=== PATIENT | female | born 1940 | race Caucasian/White ===

== ENCOUNTER → 2016-11-29 | Outpatient (CLI) | payer OTHER ==
[~2016-11-29] MED LIST: CALCTAB5 PO; MULT-506 PO; VITAMIN E PO
--- NOTE | 2016-11-29 08:48 | DIAGNOSTIC IMAGING REPORT ---
LUMBAR SPINE MRI HISTORY: Back pain. Neuropathy. ACUTE L LOWER BACK PAIN W/SCIATICA TECHNIQUE: Multiplanar multisequence MRI of the lumbar spine was performed without the use of contrast. COMPARISON: 02/14/2013 FINDINGS: For the purpose of the report the L5-S1 disc space will be located on axial image 27 of 30. Signal characteristics the vertebral bodies remain unremarkable throughout. There is no bone marrow replacing process. Findings of posterior laminectomy at the L4 level are again noted. These changes appears similar. Mild disc desiccation is noted throughout also unchanged. L1-L2: No significant central canal or neural foraminal narrowing. L2-L3: No significant central canal or neural foraminal narrowing. L3-L4: No significant central canal or neural foraminal narrowing. L4-L5: Very slight transverse narrowing of the spinal canal on a postoperative basis. This is unchanged. No evidence for recurrent disc herniation or significant spinal stenotic change. L5-S1: No significant central canal or neural foraminal narrowing. IMPRESSION: 1. No change in the prior study of 02/14/2013. 2. Stable changes of the posterior laminectomy at L4. 3. Slight transverse narrowing of spinal canal at L4 unaltered from the prior exam. 4. No significant compromise of the spinal canal or neural foramina on this exam 5. The clumping of nerve roots at L4 present described appear less prominent on the current study Electronically signed by: Terrell Cleaning M.D. 11/29/2016 8:47 AM Dictated Date/Time: 11/29/2016 8:42 AM
== END | disposition home or self-care (01) ==
LOC: C.OPENMRI 07:50
PROVIDERS: ATTEND Family Medicine
DX: M54.42 Lumbago with sciatica, left side (principal)

== ENCOUNTER 2018-10-30 15:12 | Inpatient (IN) ==
[2018-10-30] MEDS ORDERED: cefOXitin 1,000 MG/50 ML BAG IV STA (15:30)
[2018-10-30] MEDS ORDERED: SODIUM CHLORIDE 0.9% 500 ML IV SCH (15:30)
[2018-10-30] MEDS ORDERED: fentaNYL citrate 100 MCG/2 ML VIAL IV PRN (15:30)
[2018-10-30] MEDS ORDERED: ONDANSETRON INJ 2 MG/ML 2 ML VIAL IV STA (15:30)
[2018-10-30] MEDS ORDERED: SODIUM CHLORIDE 0.9% 1000ML 500 ML IV ONE (15:46)
[2018-10-30 16:06] LABS: Basophils # (auto) 0.01 K/uL (0-0.2); Basophils % (auto) 0.1 %; Eosinophils % (auto) 1.4 %; Hemoglobin 10.6 g/dL (12.0-16.0); Immature Granulocytes # (auto) 0.03 K/uL (0.00-0.02); Immature Granulocytes % (auto) 0.4 %; Lymphocytes # (auto) 1.56 K/uL (1.2-3.4); Lymphocytes % (auto) 21.1 %; Mean Corpuscular Hgb Conc 33.1 g/dL (32-36); Mean Corpuscular Volume 94.7 fL (80-100); Mean Platelet Volume 8.7 fL (7.4-10.4); Monocytes % (auto) 17.6 %; Neutrophils # (auto) 4.38 K/uL (1.4-6.5); Neutrophils % (auto) 59.4 %; Platelet Count 158 K/uL (130-400); RDW Coefficient of Variation 14.9 % (11.5-14.5); RDW Standard Deviation 50.7 fL (36.4-46.3); Red Blood Count 3.38 M/uL (4.2-5.4); White Blood Count 7.38 K/uL (4.8-10.8)
--- NOTE | 2018-10-30 16:11 | Emergency Department Note ---
Entered by Es Luna acting as a scribe for Ric Olivera DO History of Present Illness General Chief complaint: Abdominal Pain Stated complaint: INFLAMED GALL BLADDER - SENT FROM CT Source: patient History of Present Illness Onset (ago): day(s) 3 Location: abdomen Severity: similar to prior episodes Pain Consistency: + other (episode) Maximum Pain Intensity: 8 Exacerbated By: + other (deep breathing) Associated symptoms: + fever/chills (low grade fever), + loss of appetite and + nausea/vomiting (Positive nausea. Negative vomiting. ) The patient is a 78 year old female who presents to the Emergency Room with complaints of an episode of abdominal pain starting 3 days ago. The patient states that she has had issues with her gallbladder for some time. She states that in April, Dr. 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 She states that he opted not to do the surgery. She reports that since then she has received chemo, had a hysterectomy, and had the cancer debulked. She states that last week she saw Dr. Barry again and he was upset that they didnt remove her gallbladder when they did the hysterectomy because now she has a lateral scar that prevents him from removing it laparoscopically. The patient states that 3 days ago she started having another episode of her gallbladder problem. She states that the pain is worse with deep breathing. She notes that her PCP scheduled a CT this morning for her and she was told to come here due to the results. The patient complains of loss of appetite, low grade fever, and nausea. The patient denies vomiting. Home Medications Home Medications Medication Instructions Recorded Confirmed Type multivitamin [Multiple Vitamins] 1 tab PO QPM #0 tab 04/14/16 10/30/18 History vitamin E 200 unit PO QAM #0 04/14/16 10/30/18 History Calcium 600 + D(3) 1 tab PO QAM #0 01/08/18 10/30/18 History acetaminophen [Tylenol Extra 1,000 mg PO Q6H PRN 04/17/18 10/30/18 History Strength] glimepiride 2 mg PO UD 05/18/18 10/30/18 History valacyclovir [Valtrex] 500 mg PO QPM 05/18/18 10/30/18 History gabapentin 200 mg PO BID 10/01/18 10/30/18 History ondansetron 4 mg PO Q6H PRN #14 tab 10/01/18 10/30/18 Rx omeprazole 20 mg PO DAILY 10/30/18 10/30/18 History Allergies Allergy/AdvReac Type Severity Reaction Status Date / Time amoxicillin AdvReac Severe SEVERE Verified 10/30/18 17:20 STOMACH UPSET clavulanic acid AdvReac Severe SEVERE Verified 10/30/18 17:20 STOMACH UPSET naproxen AdvReac Severe Abdominal Verified 10/30/18 17:20 Pain chlorhexidine AdvReac Intermediate rash, Verified 10/30/18 17:20 itchy skin, inflammation at site Past Med/Surg History Medical History Hx of Lyme disease (Chronic) DX DECEMBER 2017 Osteoarthritis (Chronic) GERD (gastroesophageal reflux disease) (Chronic) Ovarian cancer (Chronic) CURRENTLY Peritoneal carcinomatosis (Chronic) CURRENTLY Cholelithiases (Chronic) Surgical History History of laparoscopy (Chronic) FOR GALLBLADDER SURGERY (04/17/18) GALLBADDER SURGERY CANCELLED -- PERITONEAL TUMORS BIOSPIED AT THAT TIME. MAC 3. 7.0 ETT. Grade 2 view. No issues. History of arthroscopy (Chronic) L KNEE 04/2016 History of carpal tunnel surgery (Chronic) L History of back surgery (Chronic) CYST INSIDE SPINE - BENIGN History of colonoscopy (Chronic) History of tonsillectomy (Chronic) Hx of wisdom tooth extraction (Chronic) History of surgical procedure on eye proper using laser (Chronic) PT REPORTS HAS HX OF LASER EYE SURGERY, NO ANETHESIA FOR Previous back surgery S/P appendectomy Family History Father Family hx of colon cancer Mother Family hx of colon cancer Social History Preferred Language: Moroccan Communication Ability: Effective Emergency Man Required: No Beliefs That Will Affect Care: [employer] marital status: Current Living Situation: Spouse current occupational status: retired Feels Safe at Home: Yes Safety Concerns: Feels Safe At This Time Smoking Status: Never smoker Hx Alcohol Use: Yes Hx Substance Use: No Review of Systems See HPI for pertinent positives & negatives. and A total of 10 systems reviewed and were otherwise negative Physical Exam Vital Signs Vital Signs - 24 hr 10/30/18 15:17 10/30/18 17:53 10/30/18 18:14 Temperature 36.3 C L 36.5 C Temperature Source Oral Oral Sepsis Recent Fever Within 48 Hours No Sepsis New/Unexplained Change in Mental Status No Sepsis Action Taken by Nursing No Action Required Pulse Rate 89 Pulse Rate [Finger] 72 Pulse Rhythm Regular Pulse Rhythm [Finger] Regular Pulse Strength Normal Pulse Strength [Finger] Normal Respiratory Rate 20 18 Respiratory Effort / Characteristics Non-Labored Spontaneous Non-Labored Spontaneous Respiratory Depth Normal Normal Respiratory Pattern Regular Regular Blood Pressure 100/58 L Blood Pressure [Right Arm] 125/81 Blood Pressure Mean 72 Blood Pressure Mean [Right Arm] 95 Blood Pressure Position Sitting Blood Pressure Position [Right Arm] Sitting Pulse Oximetry 97 98 Oxygen Delivery Method Room Air Room Air Room Air 10/30/18 22:57 10/31/18 07:31 Temperature 37.2 C 36.9 C Temperature Source Oral Oral Sepsis Recent Fever Within 48 Hours Sepsis New/Unexplained Change in Mental Status Sepsis Action Taken by Nursing Pulse Rate Pulse Rate [Finger] 82 63 Pulse Rhythm Pulse Rhythm [Finger] Regular Pulse Strength Pulse Strength [Finger] Normal Respiratory Rate 16 16 Respiratory Effort / Characteristics Respiratory Depth Normal Normal Respiratory Pattern Blood Pressure Blood Pressure [Right Arm] 114/69 101/60 Blood Pressure Mean Blood Pressure Mean [Right Arm] 84 73 Blood Pressure Position Blood Pressure Position [Right Arm] Lying Lying Pulse Oximetry 94 95 Oxygen Delivery Method Room Air Room Air GENERAL: Patient is awake, alert, and in no acute distress. Patient is resting comfortably and showing no signs of anxiety. EYES: The conjunctivae are clear. The pupils are round and reactive. EARS, NOSE, MOUTH AND THROAT: The nose is without any evidence of deformity. Mucous membranes are moist. Tongue is midline. NECK: The neck is nontender and supple. RESPIRATORY: Normal respiratory effort is noted. There is no evidence of wheezing rhonchi or rales to auscultation. CARDIOVASCULAR: Regular rate and rhythm noted. There are no murmurs rubs or gallops. Normal S1, normal S2. GASTROINTESTINAL: The abdomen is mildly distended. Bowel sounds are present in all quadrants. Abdomen is tender to palpation in the right upper and right lower quadrant. Guarding to the right upper quadrant. BACK: No midline tenderness or step-off noted. Full range of motion in flexion and extension as well as rotation. No signs of muscle spasm noted. MUSCULOSKELETAL/EXTREMITIES: There is no evidence of gross deformity. Full range of motion is noted in the hips and shoulders. SKIN: There is no obvious evidence of any rash. No edema was noted. There is no petechiae, pallor or cyanosis noted. NEUROLOGIC: Patient is awake alert and oriented x3. Course 1524: The patient was evaluated in room D9, and a complete history and physical examination were performed. I updated her on the treatment plan. She verbally agrees and understands. 1537: I discussed the patient's case with BELKYS Wright Surgeon. He states that the patient needs admitted to medicine and they will consult. 1544: I reviewed the patient's [facility] She will evaluate the patient for further management. Consultations Consultation #1: I discussed the patient's case with BELKYS Wright Surgeon. He states that the patient needs admitted to medicine and they will consult. Time: 15:37 Consultation #2: I reviewed the patient's case with HAYLEY [facility]. She will evaluate the patient for further management. Time: 15:44 Administered Medications Gabapentin (Neurontin) 200 mg PO BID SUZIE Stop: 11/29/18 20:59 Last Admin: 10/31/18 08:56 Dose: 200 mg Documented by: [id number] Admin: 10/30/18 21:03 Dose: 200 mg Documented by: [id number] Sodium Chloride (Nss 1000ml) 1,000 mls @ 80 mls/hr IV .[id number] SUZIE Stop: 11/29/18 18:11 Last Admin: 10/31/18 06:07 Dose: 80 mls/hr Documented by: [id number] Infusion: 10/31/18 06:07 Dose: 80 mls/hr Documented by: [id number] Admin: 10/30/18 18:44 Dose: 80 mls/hr Documented by: [id number] Acetaminophen (Ofirmev) 1,000 mg in 100 mls @ 400 mls/hr IV Q8H PRN PRN Reason: Pain Stop: 11/29/18 18:11 Last Infusion: 10/31/18 06:33 Dose: 0 mls/hr Documented by: [id number] Admin: 10/31/18 06:18 Dose: 400 mls/hr Documented by: [id number] Piperacillin Sod/Tazobactam (Sod 3.375 gm/ Dextrose) 115 mls @ 28.75 mls/hr IV Q8H SUZIE; Protocol Stop: 11/10/18 00:00 Last Admin: 10/31/18 08:56 Dose: 28.8 mls/hr Documented by: [id number] Infusion: 10/31/18 04:00 Dose: 0 mls/hr Documented by: [id number] Admin: 10/31/18 00:00 Dose: 28.8 mls/hr Documented by: [id number] Valacyclovir HCl (Valtrex) 500 mg PO QPM SUZIE Stop: 11/29/18 20:59 Last Admin: 10/30/18 21:05 Dose: 500 mg Documented by: [id number] Discontinued Medications Sodium Chloride (Nss) 500 mls @ 999 mls/hr IV .Q31M SUZIE Stop: 10/30/18 16:00 Last Infusion: 10/30/18 16:37 Dose: 0 mls/hr Documented by: [id number] Admin: 10/30/18 16:06 Dose: 999 mls/hr Documented by: [id number] Cefoxitin Sodium (Mefoxin) 1,000 mg in 50 mls @ 100 mls/hr IV NOW STA Stop: 10/30/18 15:59 Last Infusion: 10/30/18 16:37 Dose: 0 mls/hr Documented by: [id number] Admin: 10/30/18 16:07 Dose: 100 mls/hr Documented by: [id number] Sodium Chloride (Nss 1000ml) 500 mls @ 999 mls/hr IV .Q31M ONE Stop: 10/30/18 16:16 Last Infusion: 10/30/18 17:27 Dose: 0 mls/hr Documented by: [id number] Admin: 10/30/18 16:56 Dose: 999 mls/hr Documented by: [id number] Piperacillin Sod/Tazobactam (Sod 3.375 gm/ Dextrose) 115 mls @ 230 mls/hr IV NOW ONE; Protocol Stop: 10/30/18 19:14 Last Infusion: 10/30/18 22:00 Dose: 0 mls/hr Documented by: [id number] Admin: 10/30/18 21:03 Dose: 230 mls/hr Documented by: [id number] Ondansetron HCl (Zofran) 4 mg IV NOW STA Stop: 10/30/18 15:31 Last Admin: 10/30/18 16:07 Dose: Not Given Documented by: [id number] Medical Decision Making Differential Diagnosis Etiologies such as appendicitis, diverticulitis, obstruction, inflammatory bowel disease, renal colic, PUD, biliary pathology, pancreatitis, mesenteric ischemia, aortic pathology, infections, gentourinary, UTI, perforated viscus, as well as others were entertained. Medical Records Attestation: I reviewed the patient's medical records. Home Medications Current Medication List: was personally reviewed by me Laboratory Data Attestation: I reviewed the patient's lab results. Result diagrams: 10/31/18 05:56 10/31/18 05:56 Lab Results 10/30/18 10/30/18 10/30/18 Range/Units 15:55 15:55 15:55 WBC 7.38 (4.8-10.8) K/uL RBC 3.38 L (4.2-5.4) M/uL Hgb 10.6 L (12.0-16.0) g/dL Hct 32.0 L (37-47) % MCV 94.7 (80-100) fL MCH 31.4 (25-34) pg MCHC 33.1 (32-36) g/dL RDW Std Deviation 50.7 H (36.4-46.3) fL RDW Coeff of Maile 14.9 H (11.5-14.5) % Plt Count 158 (130-400) K/uL MPV 8.7 (7.4-10.4) fL Immature Gran % (Auto) 0.4 % Neut % (Auto) 59.4 % Lymph % (Auto) 21.1 % [place] % (Auto) 17.6 % Eos % (Auto) 1.4 % Baso % (Auto) 0.1 % Immature Gran # (Auto) 0.03 H (0.00-0.02) K/uL Neut # (Auto) 4.38 (1.4-6.5) K/uL Lymph # (Auto) 1.56 (1.2-3.4) K/uL [place] # (Auto) 1.30 H (0.11-0.59) K/uL Eos # (Auto) 0.10 (0-0.5) K/uL Baso # (Auto) 0.01 (0-0.2) K/uL PT 10.5 (9.0-12.0) Seconds INR 1.0 (0.9-1.1) APTT 32.3 H (21.0-31.0) Seconds PTT Ratio 1.2 Sodium 135 L (136-145) mmol/L Potassium 3.9 (3.5-5.1) mmol/L Chloride 101 (98-107) mmol/L Carbon Dioxide 26 (21-32) mmol/L Anion Gap 8.0 (3-11) BUN 16 (7-18) mg/dl Creatinine 0.91 (0.6-1.2) mg/dl Est Cr Clr Drug Dosing 48.3 ml/min Est GFR ( Amer) 71.0 Est GFR (Non-Af Amer) 61.3 BUN/Creatinine Ratio 17.7 (10-20) Glucose 81 (70-99) mg/dl Calcium 9.4 (8.5-10.1) mg/dl Total Bilirubin 0.9 (0.2-1) mg/dl Direct Bilirubin 0.2 (0-0.2) mg/dl AST 37 (15-37) U/L ALT 62 (12-78) U/L Alkaline Phosphatase 175 H (45-117) U/L Troponin I < 0.015 (0-0.045) ng/ml Total Protein 8.1 (6.4-8.2) gm/dl Albumin 3.1 L (3.4-5.0) gm/dl Globulin (2.5-4.0) gm/dl Albumin/Globulin Ratio (0.9-2) Lipase 81 (73-393) U/L Urine Color Urine Appearance (Clear) Urine pH (4.5-7.5) POC Urine pH (4.5-7.5) Ur Specific [place] (1.000-1.030) Urine Protein (Negative) POC Urine Protein (Negative) Urine Glucose (UA) (Negative) POC Ur Glucose (UA) (Normal) Urine Ketones (Negative) POC Urine Ketones (Negative) Urine Blood (Negative) POC Urine Blood (Negative) Urine Nitrite (Negative) POC Urine Nitrite (Negative) Urine Bilirubin (Negative) POC Urine Bilirubin (Negative) Urine Urobilinogen (Negative) POC Urine Urobilinogen (Normal) Ur Leukocyte Esterase (Negative) POC U Leukocyte Esteras (Negative) Urine WBC (Auto) (0-5) /hpf Urine RBC (Auto) (0-4) /hpf U Hyaline Cast (Auto) (0-5) /lpf U Epithel Cells (Auto) (0-5) /lpf Urine Bacteria (Auto) (Negative) Ur Renal Epithelial Cell (0-5) /lpf 10/30/18 10/30/18 10/31/18 Range/Units 17:00 17:00 05:56 WBC 4.08 L (4.8-10.8) K/uL RBC 3.02 L (4.2-5.4) M/uL Hgb 9.2 L (12.0-16.0) g/dL Hct 28.6 L (37-47) % MCV 94.7 (80-100) fL MCH 30.5 (25-34) pg MCHC 32.2 (32-36) g/dL RDW Std Deviation 51.8 H (36.4-46.3) fL RDW Coeff of Maile 15.0 H (11.5-14.5) % Plt Count 133 (130-400) K/uL MPV 8.5 (7.4-10.4) fL Immature Gran % (Auto) % Neut % (Auto) % Lymph % (Auto) % [place] % (Auto) % Eos % (Auto) % Baso % (Auto) % Immature Gran # (Auto) (0.00-0.02) K/uL Neut # (Auto) (1.4-6.5) K/uL Lymph # (Auto) (1.2-3.4) K/uL [place] # (Auto) (0.11-0.59) K/uL Eos # (Auto) (0-0.5) K/uL Baso # (Auto) (0-0.2) K/uL PT (9.0-12.0) Seconds INR (0.9-1.1) APTT (21.0-31.0) Seconds PTT Ratio Sodium (136-145) mmol/L Potassium (3.5-5.1) mmol/L Chloride (98-107) mmol/L Carbon Dioxide (21-32) mmol/L Anion Gap (3-11) BUN (7-18) mg/dl Creatinine (0.6-1.2) mg/dl Est Cr Clr Drug Dosing ml/min Est GFR ( Amer) Est GFR (Non-Af Amer) BUN/Creatinine Ratio (10-20) Glucose (70-99) mg/dl Calcium (8.5-10.1) mg/dl Total Bilirubin (0.2-1) mg/dl Direct Bilirubin (0-0.2) mg/dl AST (15-37) U/L ALT (12-78) U/L Alkaline Phosphatase (45-117) U/L Troponin I (0-0.045) ng/ml Total Protein (6.4-8.2) gm/dl Albumin (3.4-5.0) gm/dl Globulin (2.5-4.0) gm/dl Albumin/Globulin Ratio (0.9-2) Lipase (73-393) U/L Urine Color Yellow Urine Appearance Clear (Clear) Urine pH 6.0 (4.5-7.5) POC Urine pH 5 (4.5-7.5) Ur Specific [place] 1.035 H (1.000-1.030) Urine Protein Negative (Negative) POC Urine Protein Trace H (Negative) Urine Glucose (UA) Negative (Negative) POC Ur Glucose (UA) Normal (Normal) Urine Ketones Trace H (Negative) POC Urine Ketones 1+ (Small) H (Negative) Urine Blood 2+ H (Negative) POC Urine Blood 50 H (Negative) Urine Nitrite Negative (Negative) POC Urine Nitrite Negative (Negative) Urine Bilirubin Negative (Negative) POC Urine Bilirubin Negative (Negative) Urine Urobilinogen Negative (Negative) POC Urine Urobilinogen Normal (Normal) Ur Leukocyte Esterase 2+ H (Negative) POC U Leukocyte Esteras 1+ H (Negative) Urine WBC (Auto) 5-10 H (0-5) /hpf Urine RBC (Auto) 5-10 H (0-4) /hpf U Hyaline Cast (Auto) 0 (0-5) /lpf U Epithel Cells (Auto) 5-10 H (0-5) /lpf Urine Bacteria (Auto) Negative (Negative) Ur Renal Epithelial Cell 0-5 (0-5) /lpf 10/31/18 Range/Units 05:56 WBC (4.8-10.8) K/uL RBC (4.2-5.4) M/uL Hgb (12.0-16.0) g/dL Hct (37-47) % MCV (80-100) fL MCH (25-34) pg MCHC (32-36) g/dL RDW Std Deviation (36.4-46.3) fL RDW Coeff of Maile (11.5-14.5) % Plt Count (130-400) K/uL MPV (7.4-10.4) fL Immature Gran % (Auto) % Neut % (Auto) % Lymph % (Auto) % [place] % (Auto) % Eos % (Auto) % Baso % (Auto) % Immature Gran # (Auto) (0.00-0.02) K/uL Neut # (Auto) (1.4-6.5) K/uL Lymph # (Auto) (1.2-3.4) K/uL [place] # (Auto) (0.11-0.59) K/uL Eos # (Auto) (0-0.5) K/uL Baso # (Auto) (0-0.2) K/uL PT (9.0-12.0) Seconds INR (0.9-1.1) APTT (21.0-31.0) Seconds PTT Ratio Sodium 143 D (136-145) mmol/L Potassium 3.8 (3.5-5.1) mmol/L Chloride 110 H (98-107) mmol/L Carbon Dioxide 29 (21-32) mmol/L Anion Gap 4.0 (3-11) BUN 12 (7-18) mg/dl Creatinine 0.87 (0.6-1.2) mg/dl Est Cr Clr Drug Dosing 50.5 ml/min Est GFR ( Amer) 75.0 Est GFR (Non-Af Amer) 64.7 BUN/Creatinine Ratio 13.5 (10-20) Glucose 78 (70-99) mg/dl Calcium 9.2 (8.5-10.1) mg/dl Total Bilirubin 0.8 (0.2-1) mg/dl Direct Bilirubin (0-0.2) mg/dl AST 25 (15-37) U/L ALT 43 (12-78) U/L Alkaline Phosphatase 150 H (45-117) U/L Troponin I (0-0.045) ng/ml Total Protein 6.8 (6.4-8.2) gm/dl Albumin 2.5 L (3.4-5.0) gm/dl Globulin 4.3 H (2.5-4.0) gm/dl Albumin/Globulin Ratio 0.6 L (0.9-2) Lipase (73-393) U/L Urine Color Urine Appearance (Clear) Urine pH (4.5-7.5) POC Urine pH (4.5-7.5) Ur Specific [place] (1.000-1.030) Urine Protein (Negative) POC Urine Protein (Negative) Urine Glucose (UA) (Negative) POC Ur Glucose (UA) (Normal) Urine Ketones (Negative) POC Urine Ketones (Negative) Urine Blood (Negative) POC Urine Blood (Negative) Urine Nitrite (Negative) POC Urine Nitrite (Negative) Urine Bilirubin (Negative) POC Urine Bilirubin (Negative) Urine Urobilinogen (Negative) POC Urine Urobilinogen (Normal) Ur Leukocyte Esterase (Negative) POC U Leukocyte Esteras (Negative) Urine WBC (Auto) (0-5) /hpf Urine RBC (Auto) (0-4) /hpf U Hyaline Cast (Auto) (0-5) /lpf U Epithel Cells (Auto) (0-5) /lpf Urine Bacteria (Auto) (Negative) Ur Renal Epithelial Cell (0-5) /lpf ECG Data Attestation: I personally reviewed and interpreted this ECG as follows: Indication: abdominal pain Rate (beats per minute): 80 Rhythm: normal sinus Findings: no PAC, no PVC, no ST depression, no ST elevation and no ectopy Comparison ECG Date: from (10/01/2018) Change: no significant change Blood Pressure Blood Pressure Findings: Low blood pressure Blood Pressure Disposition: further management by hospitalist RICK Jerez The patient is a 78-year-old female who presented to the emergency department for an evaluation of abdominal pain. The patient is a history of gallbladder disease but she has not had a cholecystectomy because of complicating conditions with her abdomen. She was diagnosed with an intra-abdominal tumor with metastatic disease. The patient has had surgical debulking of the tumor with hysterectomy. At that time they did not remove her gallbladder. The patient has been having intermittent episodes of right upper quadrant pain which became much more severe over the weekend. She had outpatient laboratory and radiographic studies by her primary care physician. She was sent to the emergency department for a CT abdomen and pelvis which revealed cholecystitis. She was treated with IV fluids IV pain medication as well as IV antibiotics. I discussed her case with the on-call general surgical group as well as the on- call [facility] hospitalist group. They have agreed to evaluate the patient in the emergency department for further management and disposition. Impression & Plan Cholecystitis, Abdominal pain, RUQ Discharge Plan Visit Data *Final* Discharge Date/Time: 10/30/18 17:25 Chief Complaint: Abdominal Pain Stated Complaint: INFLAMED GALL BLADDER - SENT FROM CT ED Provider: Ric Olivera Discharge Problem: Cholecystitis, Abdominal pain, RUQ Patient Disposition: Admitted As Inpatient Discharge Instructions Interventions: ED Discharge Assessment Last Done: 10/30/18 17:25 The scribe's documentation has been prepared under my direction and personally reviewed by me in its entirety. I confirm that the note above accurately reflects all work, treatment, procedures, and medical decision making performed by me.
[2018-10-30 16:31] LABS: Alanine Aminotransferase 62 U/L (12-78); Albumin Level 3.1 gm/dl (3.4-5.0); Aspartate Aminotransferase 37 U/L (15-37); BUN Creatinine Ratio 17.7 (10-20); Bilirubin Direct 0.2 mg/dl (0-0.2); Blood Urea Nitrogen 16 mg/dl (7-18); Calcium 9.4 mg/dl (8.5-10.1); Carbon Dioxide 26 mmol/L (21-32); Chloride 101 mmol/L (98-107); Creatinine Clr Calc Pharmacy 48.3 ml/min; Est GFR (Non-African American) 61.3; Glucose 81 mg/dl (70-99); Potassium 3.9 mmol/L (3.5-5.1); Sodium 135 mmol/L (136-145)
[2018-10-30 16:36] LABS: Alkaline Phosphatase 175 U/L (45-117); Bilirubin,Total 0.9 mg/dl (0.2-1); Total Protein 8.1 gm/dl (6.4-8.2); Troponin I < 0.015 ng/ml (0-0.045)
--- NOTE | 2018-10-30 17:08 | History & Physical Report ---
Date of Service October 30, 2018 Assessment & Plan (1) Acute cholecystitis: Pt presented with c/o RUQ pain x 2 days, decreased appetite. Reports temp of 100F yesterday. Denies N/V/D. T: 36.3C, P: 89, R: 20, BP: 100/58, 97% on RA. WBC: 7, Hgb: 10.6 (baseline ~10's), BUN: 16, CR: 0.9, GFR: 61, total bili: 0.2, AST: 37, ALT: 62, Alk Phos: 175, lipase: 81 CT ABD/PELVIS: 1. Findings consistent with severe acute cholecystitis. Surgical consultation is recommended. 2. No significant change in several peritoneal nodules since CT of October 01, 2018. 3. No change in scattered sclerotic lesions. -In ER given NSS, Cefoxitin -NPO -IVF -zosyn -IV Tylenol, morphine prn pain (pt would like to try to avoid narcotics) -General surgery consult, Dr Wright evaluated pt in ER, plan for cholecystectomy -monitor CBC, CMP (2) Peritoneal carcinomatosis: Hx EMILIA/BSO/omnectomy/debulking at [place] on 08/04/18. She is undergoing chemotherapy and following with Dr. Ley. Last chemo 3 weeks ago -continue gabapentin, valtrex DVT Prophylaxis -SCDs Full Code as per discussion with pt Follows with Dr Luo for routine care Pt was seen with Dr Hernandez. See addendum History of Present Illness Chief Complaint: RUQ pain Primary Care Provider: Anitra Luo MD Pt is a 78y/o F with PMH migraine, peritoneal carcinomatosis with concern for bone metastases presented to ER with complaint of right upper quadrant pain x 2 days. Patient with history of intermittent RUQ pain since March 2018 and at that point time was found to have peritoneal carcinomatosis. Cholecystectomy was then placed on hold. She had EMILIA/BSO/omnectomy/debulking at [place] on 08/04/18. She is undergoing chemotherapy and following with Dr. Ley. Last chemo 3 weeks ago. Patient with history RUQ pain in 09/[address] abd/pelvis at that time showed distended gallbadder without thickening. She follows with General Surgery Dr. Barry on 10/25/18 and at that point in time discussion about possible cholecystectomy in the future. 2 days ago with onset RUQ pain. Patient reports temp of 100 F yesterday. Reports poor appetite. She states has not eaten since 7 PM last night. Prior to onset of pain patient reports had some [place] fries. Last BM 2 days ago. Reports chronic constipation. Pt reports UTI and finished macrobid last week and denies further urinary symptoms. Denies diaphoresis, N/V/D, FRANK, dizziness, syncope, vision changes, neck pain, CP, SOB, orthopnea, palpitations, cough, sore throat, choking, otalgia, rhinorrhea, paresthesias, weakness, extremity weakness, extremity edema, rashes. Allergies Allergy/AdvReac Type Severity Reaction Status Date / Time amoxicillin AdvReac Severe SEVERE Verified 10/30/18 17:20 STOMACH UPSET clavulanic acid AdvReac Severe SEVERE Verified 10/30/18 17:20 STOMACH UPSET naproxen AdvReac Severe Abdominal Verified 10/30/18 17:20 Pain chlorhexidine AdvReac Intermediate rash, Verified 10/30/18 17:20 itchy skin, inflammation at site Home Medications Home Medications Medication Instructions Recorded Confirmed Type multivitamin [Multiple Vitamins] 1 tab PO QPM #0 tab 04/14/16 10/30/18 History vitamin E 200 unit PO QAM #0 04/14/16 10/30/18 History Calcium 600 + D(3) 1 tab PO QAM #0 01/08/18 10/30/18 History acetaminophen [Tylenol Extra 1,000 mg PO Q6H PRN 04/17/18 10/30/18 History Strength] glimepiride 2 mg PO UD 05/18/18 10/30/18 History valacyclovir [Valtrex] 500 mg PO QPM 05/18/18 10/30/18 History gabapentin 200 mg PO BID 10/01/18 10/30/18 History ondansetron 4 mg PO Q6H PRN #14 tab 10/01/18 10/30/18 Rx omeprazole 20 mg PO DAILY 10/30/18 10/30/18 History Past Med/Surg History Medical History Hx of Lyme disease (Chronic) DX DECEMBER 2017 Osteoarthritis (Chronic) GERD (gastroesophageal reflux disease) (Chronic) Ovarian cancer (Chronic) CURRENTLY Peritoneal carcinomatosis (Chronic) CURRENTLY Cholelithiases (Chronic) Surgical History History of laparoscopy (Chronic) FOR GALLBLADDER SURGERY (04/17/18) GALLBADDER SURGERY CANCELLED -- PERITONEAL TUMORS BIOSPIED AT THAT TIME. MAC 3. 7.0 ETT. Grade 2 view. No issues. History of arthroscopy (Chronic) L KNEE 04/2016 History of carpal tunnel surgery (Chronic) L History of back surgery (Chronic) CYST INSIDE SPINE - BENIGN History of colonoscopy (Chronic) History of tonsillectomy (Chronic) Hx of wisdom tooth extraction (Chronic) History of surgical procedure on eye proper using laser (Chronic) PT REPORTS HAS HX OF LASER EYE SURGERY, NO ANETHESIA FOR Previous back surgery S/P appendectomy Family History Father Family hx of colon cancer Mother Family hx of colon cancer Social History Communication Ability: Effective Beliefs That Will Affect Care: Mu-Ism marital status: Current Living Situation: Spouse current occupational status: retired Feels Safe at Home: Yes Safety Concerns: Feels Safe At This Time Smoking Status: Never smoker Hx Alcohol Use: Yes Hx Substance Use: No Review of Systems All systems reviewed & are unremarkable except as noted in HPI & below Physical Exam Vital Signs (Past 24 Hours): Last Vital Signs Temp 36.3 C L 10/30/18 15:17 Pulse 89 10/30/18 15:17 Resp 20 10/30/18 15:17 BP 100/58 L 10/30/18 15:17 Pulse Ox 97 10/30/18 15:17 Physical Exam: General: no distress, WDWN Head: normocephalic, atraumatic Eyes: conjunctiva non-injected, anicteric ENT: normal inspection external ears, nose, mucous membranes moist Neck: supple, trachea midline Lungs: clear, no respiratory distress CV: RRR, no pretibial edema Abd: normal BS, soft, +tenderness RUQ Ext: no cyanosis, no calf tenderness Neuro: A&O x 3, no focal deficits noted, normal affect Skin: warm, dry Results & Data Laboratory Results Short CBC 10/30/18 Range/Units 15:55 WBC 7.38 (4.8-10.8) K/uL Hgb 10.6 L (12.0-16.0) g/dL Hct 32.0 L (37-47) % Plt Count 158 (130-400) K/uL BMP 10/30/18 15:55 Sodium 135 L Potassium 3.9 Chloride 101 Carbon Dioxide 26 BUN 16 Creatinine 0.91 Glucose 81 Calcium 9.4 Cardiac Enzymes 10/30/18 Range/Units 15:55 Troponin I < 0.015 (0-0.045) ng/ml Liver Function 10/30/18 Range/Units 15:55 Total Bilirubin 0.9 (0.2-1) mg/dl Direct Bilirubin 0.2 (0-0.2) mg/dl AST 37 (15-37) U/L ALT 62 (12-78) U/L Alkaline Phosphatase 175 H (45-117) U/L Albumin 3.1 L (3.4-5.0) gm/dl Urine 10/30/18 Range/Units 17:00 Urine Color Yellow Urine Appearance Clear (Clear) Urine pH 6.0 (4.5-7.5) Ur Specific [place] 1.035 H (1.000-1.030) Urine Protein Negative (Negative) Urine Glucose (UA) Negative (Negative) Diagnostic Findings CT ABD/PELVIS: IMPRESSION: 1. Findings consistent with severe acute cholecystitis. Surgical consultation is recommended. 2. No significant change in several peritoneal nodules since CT of October 01, 2018. 3. No change in scattered sclerotic lesions. ECG Rate (beats per minute): 80 Rhythm: normal sinus Supervising Physician Co-Signing Physician Notes I have seen and examined the patient and have discussed the case with the provider above. I agree with the assessment and plan as stated. 78 yo F with peritoneal carcinomatosis on chemo, known gallbladder issues in the past, now with acute cholecystitis on imaging as outpatient. Abdomen tender on exam. Surgery planned for tonight vs tomorrow. DO David
[2018-10-30 17:11] LABS: Appearance Urine Clear (Clear); Bilirubin Urine Negative (Negative); Blood Urine 2+ (Negative); Color Urine Yellow; Glucose Urine UA Negative (Negative); Ketones Urine Trace (Negative); Leukocyte Esterase Urine 2+ (Negative); Nitrite Urine Negative (Negative); Protein Urine Negative (Negative); Specific Gravity Urine 1.035 (1.000-1.030); Urobilinogen Urine Negative (Negative)
[2018-10-30 17:33] LABS: Renal Epithelial Cells Urine 0-5 /lpf (0-5)
[2018-10-30 17:34] LABS: Bacteria Urine Automated Negative (Negative); Cast Urine Automated 0 /lpf (0-5)
[2018-10-30] MEDS ORDERED: MoRPHine SULFATE 2 MG/ML CARP IV PRN (18:12)
[2018-10-30] MEDS ORDERED: ONDANSETRON INJ 2 MG/ML 2 ML VIAL IV PRN (18:12)
[2018-10-30] MEDS ORDERED: PIPERACILL/TAZOBAC CONSULT ACTIVE PRN (18:20)
[2018-10-30] MEDS: SODIUM CHLORIDE 0.9% 1000ML 1,000 ML IV SCH (18:44)
[2018-10-30] MEDS ORDERED: PIPERACILLIN/TAZOBACTAM 3.375 GM in DEXTROSE 5% 100 ML IV ONE (18:45)
[2018-10-30 19:43] LABS: Partial Thromboplastin Ratio 1.2; Partial Thromboplastin Time 32.3 Seconds (21.0-31.0); Prothrombin Time 10.5 Seconds (9.0-12.0)
[2018-10-30] MEDS: GABAPENTIN 100 MG CAP PO SCH (21:03)
[2018-10-30] MEDS: VALACYCLOVIR HCL 500 MG TABLET PO SCH (21:05)
--- NOTE | 2018-10-30 21:18 | Anesthesiology Consultation ---
Date of Service October 30, 2018 Assessment & Plan (1) Encounter for pre-operative examination: Chart Review Chart Review: Acceptable Risk for Surgery and Patient NOT seen in Pre Admission Testing Consults Requested none History Surgery Operation Date: 10/31/18 11:30 Proposed Procedures p Laparoscopic Cholecystectomy, Possible Open, Possible Cholangiogram - Yoel Jacobs, , FACS Height/Weight Height: 5 ft 5.5 in Weight: 69 kg Allergies Allergy/AdvReac Type Severity Reaction Status Date / Time amoxicillin AdvReac Severe SEVERE Verified 10/30/18 17:20 STOMACH UPSET clavulanic acid AdvReac Severe SEVERE Verified 10/30/18 17:20 STOMACH UPSET naproxen AdvReac Severe Abdominal Verified 10/30/18 17:20 Pain chlorhexidine AdvReac Intermediate rash, Verified 10/30/18 17:20 itchy skin, inflammation at site Medications Home Medications Medication Instructions Recorded Confirmed Last Taken multivitamin [Multiple Vitamins] 1 tab PO QPM #0 tab 04/14/16 10/30/18 05/22/18 22:00 vitamin E 200 unit PO QAM #0 04/14/16 10/30/18 05/22/18 07:30 Calcium 600 + D(3) 1 tab PO QAM #0 01/08/18 10/30/18 10/30/18 acetaminophen [Tylenol Extra 1,000 mg PO Q6H PRN 04/17/18 10/30/18 10/30/18 09:30 Strength] 1000mg glimepiride 2 mg PO UD 05/18/18 10/30/18 Unknown valacyclovir [Valtrex] 500 mg PO QPM 05/18/18 10/30/18 05/22/18 22:00 gabapentin 200 mg PO BID 10/01/18 10/30/18 10/30/18 ondansetron 4 mg PO Q6H PRN #14 tab 10/01/18 10/30/18 Unknown omeprazole 20 mg PO DAILY 10/30/18 10/30/18 Unknown Active Medications Generic Name Dose Route Start Last Admin Trade Name Freq PRN Reason Stop Dose Admin Sodium Chloride 1,000 mls @ 80 mls/hr 10/30/18 18:12 10/30/18 18:44 Nss 1000ml IV 11/29/18 18:11 80 mls/hr .[id number] SUZIE Administration Past Medical History Medical History Hx of Lyme disease (Chronic) DX DECEMBER 2017 Osteoarthritis (Chronic) GERD (gastroesophageal reflux disease) (Chronic) Ovarian cancer (Chronic) CURRENTLY Peritoneal carcinomatosis (Chronic) CURRENTLY Cholelithiases (Chronic) Past Family History Family History Father Family hx of colon cancer Mother Family hx of colon cancer Past Surgical History Surgical History History of laparoscopy (Chronic) FOR GALLBLADDER SURGERY (04/17/18) GALLBADDER SURGERY CANCELLED -- PERITONEAL TUMORS BIOSPIED AT THAT TIME. MAC 3. 7.0 ETT. Grade 2 view. No issues. History of arthroscopy (Chronic) L KNEE 04/2016 History of carpal tunnel surgery (Chronic) L History of back surgery (Chronic) CYST INSIDE SPINE - BENIGN History of colonoscopy (Chronic) History of tonsillectomy (Chronic) Hx of wisdom tooth extraction (Chronic) History of surgical procedure on eye proper using laser (Chronic) PT REPORTS HAS HX OF LASER EYE SURGERY, NO ANETHESIA FOR Previous back surgery S/P appendectomy Social History Smoking Status: Never smoker Do You Dip or Chew Tobacco: No Hx Alcohol Use: Yes Alcohol type: wine alcohol intake frequency: holidays/special occasions only Hx Substance Use: No substance use type: does not use Physical Exam Vital Signs Last Vital Signs Temp 36.5 C 10/30/18 18:14 Pulse 72 10/30/18 18:14 Resp 18 10/30/18 18:14 BP 125/81 10/30/18 18:14 Pulse Ox 98 10/30/18 18:14 Testing Electrocardiogram Date: 10/30/18 Findings: + NSR @ (HR 80) Normal ECG. Echocardiogram Date: 05/07/18 EF: 70% LV Function: normal RWMA: + none Other Findings: + LVH Valvular Disease: + no significant valvular disease Grade 1 diastolic dysfunction. Laboratory Results 10/30/18 15:55 10/30/18 15:55 PT 10.5 Seconds (9.0-12.0) 10/30/18 15:55 INR 1.0 (0.9-1.1) 10/30/18 15:55 APTT 32.3 Seconds (21.0-31.0) H 10/30/18 15:55 Urine Color Yellow 10/30/18 17:00 Urine Appearance Clear (Clear) 10/30/18 17:00 Urine pH 6.0 (4.5-7.5) 10/30/18 17:00 Ur Specific [place] 1.035 (1.000-1.030) H 10/30/18 17:00 Urine Protein Negative (Negative) 10/30/18 17:00 Urine Glucose (UA) Negative (Negative) 10/30/18 17:00 Urine Ketones Trace (Negative) H 10/30/18 17:00 Urine Nitrite Negative (Negative) 10/30/18 17:00 Ur Leukocyte Esterase 2+ (Negative) H 10/30/18 17:00 Urine WBC (Auto) 5-10 /hpf (0-5) H 10/30/18 17:00 Urine RBC (Auto) 5-10 /hpf (0-4) H 10/30/18 17:00 U Hyaline Cast (Auto) 0 /lpf (0-5) 10/30/18 17:00 U Epithel Cells (Auto) 5-10 /lpf (0-5) H 10/30/18 17:00 Urine Bacteria (Auto) Negative (Negative) 10/30/18 17:00
[2018-10-31] MEDS ORDERED: HEPARIN 100 UNIT/ML 5ML FLUSH FLUSH PRN (01:23)
[2018-10-31] MEDS: SODIUM CHLORIDE 0.9% 1000ML 1,000 ML IV SCH ×3 (06:07→22:49)
[2018-10-31 06:18] LABS: Hematocrit (blood only) 28.6 % (37-47); Hemoglobin 9.2 g/dL (12.0-16.0); Mean Corpuscular Hgb Conc 32.2 g/dL (32-36); Mean Corpuscular Volume 94.7 fL (80-100); Mean Platelet Volume 8.5 fL (7.4-10.4); Platelet Count 133 K/uL (130-400); RDW Standard Deviation 51.8 fL (36.4-46.3); Red Blood Count 3.02 M/uL (4.2-5.4); White Blood Count 4.08 K/uL (4.8-10.8)
[2018-10-31] MEDS: ACETAMINOPHEN 1,000 MG/100 ML VIAL IV PRN ×2 (06:18→20:41)
[2018-10-31 06:51] LABS: Albumin Globulin Ratio 0.6 (0.9-2); Albumin Level 2.5 gm/dl (3.4-5.0); BUN Creatinine Ratio 13.5 (10-20); Bilirubin,Total 0.8 mg/dl (0.2-1); Calcium 9.2 mg/dl (8.5-10.1); Creatinine Clr Calc Pharmacy 50.5 ml/min; Est GFR (Non-African American) 64.7; Globulin 4.3 gm/dl (2.5-4.0); Potassium 3.8 mmol/L (3.5-5.1); Total Protein 6.8 gm/dl (6.4-8.2)
[2018-10-31] MEDS: GABAPENTIN 100 MG CAP PO SCH ×2 (08:56→20:29)
[2018-10-31] MEDS: PIPERACILLIN/TAZOBACTAM 3.375 GM in DEXTROSE 5% 100 ML IV SCH ×3 (08:56→16:32)
[2018-10-31] MEDS ORDERED: PROPOFOL IV EMULSION 10 MG/ML 20 ML VIAL IV ONE (10:56)
[2018-10-31] MEDS ORDERED: LIDOCAINE HCL 2% 2 ML VIAL/AMP(20MG/ML) INFIL ONE (10:56)
[2018-10-31] MEDS ORDERED: ROCURONIUM BROMIDE 10 MG/ML 5 ML VIAL ONE (10:56)
[2018-10-31] MEDS ORDERED: MIDAZOLAM HCL 1 MG/ML 2ML VIAL ONE (10:56)
[2018-10-31] MEDS ORDERED: ONDANSETRON INJ 2 MG/ML 2 ML VIAL ONE (10:56)
[2018-10-31] MEDS ORDERED: DEXAMETHASONE SOD INJ 4 MG/ML VIAL ONE (10:56)
[2018-10-31] MEDS ORDERED: fentaNYL citrate 100 MCG/2 ML VIAL ONE ×2 (10:56→12:40)
--- NOTE | 2018-10-31 11:48 | Surgery Progress Note ---
Date of Service October 31, 2018 Assessment & Plan (1) Acute cholecystitis: acute cholecystitis Plan for laparoscopic cholecystectomy, possible cholangiogram, possible open risks reviewed, questions answered, patient consented Present on Admission?: Yes Subjective 78 year old female with h/o abdominal carcinomatosis s/p chemo and radical hysterectomy with omentectomy, admitted with cholecystitis. Feels better than last night. Physical Exam Vital Signs (Past 24 Hours): Last Vital Signs Temp 36.5 C 10/31/18 11:37 Pulse 67 10/31/18 11:37 Resp 95 H 10/31/18 11:37 BP 111/61 10/31/18 11:37 Pulse Ox 95 10/31/18 11:37 Constitutional: WD/WN, vitals as above Gastrointestinal (Abdomen): Percussion/Palpation: + abdomen tender (RUQ) and abdomen soft midline scar Results & Data Laboratory Results Laboratory Results - last 24 hr 10/30/18 10/30/18 10/30/18 15:55 15:55 15:55 WBC 7.38 RBC 3.38 L Hgb 10.6 L Hct 32.0 L MCV 94.7 MCH 31.4 MCHC 33.1 RDW Std Deviation 50.7 H RDW Coeff of [place] 14.9 H Plt Count 158 MPV 8.7 Immature Gran % (Auto) 0.4 Neut % (Auto) 59.4 Lymph % (Auto) 21.1 [place] % (Auto) 17.6 Eos % (Auto) 1.4 Baso % (Auto) 0.1 Immature Gran # (Auto) 0.03 H Neut # (Auto) 4.38 Lymph # (Auto) 1.56 [place] # (Auto) 1.30 H Eos # (Auto) 0.10 Baso # (Auto) 0.01 PT 10.5 INR 1.0 APTT 32.3 H PTT Ratio 1.2 Sodium 135 L Potassium 3.9 Chloride 101 Carbon Dioxide 26 Anion Gap 8.0 BUN 16 Creatinine 0.91 Est Cr Clr Drug Dosing 48.3 Est GFR ( Amer) 71.0 Est GFR (Non-Af Amer) 61.3 BUN/Creatinine Ratio 17.7 Glucose 81 Calcium 9.4 Total Bilirubin 0.9 Direct Bilirubin 0.2 AST 37 ALT 62 Alkaline Phosphatase 175 H Troponin I < 0.015 Total Protein 8.1 Albumin 3.1 L Globulin Albumin/Globulin Ratio Lipase 81 Urine Color Urine Appearance Urine pH POC Urine pH Ur Specific [place] Urine Protein POC Urine Protein Urine Glucose (UA) POC Ur Glucose (UA) Urine Ketones POC Urine Ketones Urine Blood POC Urine Blood Urine Nitrite POC Urine Nitrite Urine Bilirubin POC Urine Bilirubin Urine Urobilinogen POC Urine Urobilinogen Ur Leukocyte Esterase POC U Leukocyte Esteras Urine WBC (Auto) Urine RBC (Auto) U Hyaline Cast (Auto) U Epithel Cells (Auto) Urine Bacteria (Auto) Ur Renal Epithelial Cell 10/30/18 10/30/18 10/31/18 17:00 17:00 05:56 WBC 4.08 L RBC 3.02 L Hgb 9.2 L Hct 28.6 L MCV 94.7 MCH 30.5 MCHC 32.2 RDW Std Deviation 51.8 H RDW Coeff of [place] 15.0 H Plt Count 133 MPV 8.5 Immature Gran % (Auto) Neut % (Auto) Lymph % (Auto) [place] % (Auto) Eos % (Auto) Baso % (Auto) Immature Gran # (Auto) Neut # (Auto) Lymph # (Auto) [place] # (Auto) Eos # (Auto) Baso # (Auto) PT INR APTT PTT Ratio Sodium Potassium Chloride Carbon Dioxide Anion Gap BUN Creatinine Est Cr Clr Drug Dosing Est GFR ( Amer) Est GFR (Non-Af Amer) BUN/Creatinine Ratio Glucose Calcium Total Bilirubin Direct Bilirubin AST ALT Alkaline Phosphatase Troponin I Total Protein Albumin Globulin Albumin/Globulin Ratio Lipase Urine Color Yellow Urine Appearance Clear Urine pH 6.0 POC Urine pH 5 Ur Specific [place] 1.035 H Urine Protein Negative POC Urine Protein Trace H Urine Glucose (UA) Negative POC Ur Glucose (UA) Normal Urine Ketones Trace H POC Urine Ketones 1+ (Small) H Urine Blood 2+ H POC Urine Blood 50 H Urine Nitrite Negative POC Urine Nitrite Negative Urine Bilirubin Negative POC Urine Bilirubin Negative Urine Urobilinogen Negative POC Urine Urobilinogen Normal Ur Leukocyte Esterase 2+ H POC U Leukocyte Esteras 1+ H Urine WBC (Auto) 5-10 H Urine RBC (Auto) 5-10 H U Hyaline Cast (Auto) 0 U Epithel Cells (Auto) 5-10 H Urine Bacteria (Auto) Negative Ur Renal Epithelial Cell 0-5 10/31/18 05:56 WBC RBC Hgb Hct MCV MCH MCHC RDW Std Deviation RDW Coeff of [place] Plt Count MPV Immature Gran % (Auto) Neut % (Auto) Lymph % (Auto) [place] % (Auto) Eos % (Auto) Baso % (Auto) Immature Gran # (Auto) Neut # (Auto) Lymph # (Auto) [place] # (Auto) Eos # (Auto) Baso # (Auto) PT INR APTT PTT Ratio Sodium 143 D Potassium 3.8 Chloride 110 H Carbon Dioxide 29 Anion Gap 4.0 BUN 12 Creatinine 0.87 Est Cr Clr Drug Dosing 50.5 Est GFR ( Amer) 75.0 Est GFR (Non-Af Amer) 64.7 BUN/Creatinine Ratio 13.5 Glucose 78 Calcium 9.2 Total Bilirubin 0.8 Direct Bilirubin AST 25 ALT 43 Alkaline Phosphatase 150 H Troponin I Total Protein 6.8 Albumin 2.5 L Globulin 4.3 H Albumin/Globulin Ratio 0.6 L Lipase Urine Color Urine Appearance Urine pH POC Urine pH Ur Specific [place] Urine Protein POC Urine Protein Urine Glucose (UA) POC Ur Glucose (UA) Urine Ketones POC Urine Ketones Urine Blood POC Urine Blood Urine Nitrite POC Urine Nitrite Urine Bilirubin POC Urine Bilirubin Urine Urobilinogen POC Urine Urobilinogen Ur Leukocyte Esterase POC U Leukocyte Esteras Urine WBC (Auto) Urine RBC (Auto) U Hyaline Cast (Auto) U Epithel Cells (Auto) Urine Bacteria (Auto) Ur Renal Epithelial Cell
[2018-10-31] MEDS ORDERED: ONDANSETRON INJ 2 MG/ML 2 ML VIAL IV PRN (12:02)
[2018-10-31] MEDS ORDERED: ePHEDrine sulfate 50 MG/ML AMP IV PRN (12:02)
[2018-10-31] MEDS ORDERED: fentaNYL citrate 100 MCG/2 ML VIAL IV PRN (12:02)
[2018-10-31] MEDS ORDERED: HYDROmorphone INJ 1 MG/ML SYRINGE IV PRN (12:02)
[2018-10-31] MEDS ORDERED: ATROPINE SULFATE 0.1 MG/ML 10ML SYR IV PRN (12:02)
[2018-10-31] MEDS ORDERED: CONRAY 60% 50 ML VIAL ONE (12:04)
[2018-10-31] MEDS ORDERED: BUPIVACAINE 0.5 % 5 MG/1 ML MPF 30ML VIAL ONE (12:04)
--- NOTE | 2018-10-31 14:10 | Hospitalist Progress Note ---
Date of Service October 31, 2018 Assessment & Plan (1) Acute cholecystitis: s/p lap macario today. Healing well. Cont Zosyn for now per Gen Surg. Advance diet as tolerated. (2) Peritoneal carcinomatosis: Hx EMILIA/BSO/omnectomy/debulking at [place] on 08/04/18. She is undergoing chemotherapy and following with Dr. Ley. Last chemo 3 weeks ago. continue gabapentin, valtrex (3) DVT prophylaxis: SCDs Dispo-cont hospitalization Leslie Hernandez DO [facility] Hospitalist Subjective s/p lap macario today. Did not convert to open. She is post op in her room and recovering well. Dr. Jacobs in room. Physical Exam Vital Signs (Past 24 Hours): Last Vital Signs Temp 36.5 C 10/31/18 11:37 Pulse 67 10/31/18 11:37 Resp 95 H 10/31/18 11:37 BP 111/61 10/31/18 11:37 Pulse Ox 95 10/31/18 11:37 CONSTITUTIONAL: WNWD, vitals as above, generally well-appearing, alopecia in setting of recent chemo EYES: normal conjuctivae, no scleral icterus ENT: MMM RESPIRATORY: clear to auscultation bilaterally, no crackles, rales or wheezes, normal respiratory effort CARDIOVASCULAR: regular rate and rhythm, S1 and 2 heard without murmurs, gallops or rubs, no JVD, no peripheral edema GASTROINTESTINAL: normal bowel sounds, soft, TTP around incision sites which are closed. FELICIA drain in place. MUSCULOSKELETAL: strength 5/5 throughout, head is normocephalic and atraumatic NEUROLOGIC: patellar [id number] 2+ bilat. PERRL, EOMI, no facial palsy, no dysarthria. Touch, pain and proprioception normal. CN 2-12 grossly intact, no sensory deficit, normal cognition, normal speech, no tremor PSYCHIATRIC: alert cooperative and oriented to person, place and time. Euthymic mood, makes good eye contact, language grossly intact, recent and remote memory grossly intact. LYMPHATIC: no LAD Results & Data Laboratory Results Short CBC 10/30/18 10/31/18 Range/Units 15:55 05:56 WBC 7.38 4.08 L (4.8-10.8) K/uL Hgb 10.6 L 9.2 L (12.0-16.0) g/dL Hct 32.0 L 28.6 L (37-47) % Plt Count 158 133 (130-400) K/uL BMP 10/30/18 10/31/18 15:55 05:56 Sodium 135 L 143 D Potassium 3.9 3.8 Chloride 101 110 H Carbon Dioxide 26 29 BUN 16 12 Creatinine 0.91 0.87 Glucose 81 78 Calcium 9.4 9.2 Cardiac Enzymes 10/30/18 Range/Units 15:55 Troponin I < 0.015 (0-0.045) ng/ml Liver Function 10/30/18 10/31/18 Range/Units 15:55 05:56 Total Bilirubin 0.9 0.8 (0.2-1) mg/dl Direct Bilirubin 0.2 (0-0.2) mg/dl AST 37 25 (15-37) U/L ALT 62 43 (12-78) U/L Alkaline Phosphatase 175 H 150 H (45-117) U/L Albumin 3.1 L 2.5 L (3.4-5.0) gm/dl Urine 10/30/18 Range/Units 17:00 Urine Color Yellow Urine Appearance Clear (Clear) Urine pH 6.0 (4.5-7.5) Ur Specific [place] 1.035 H (1.000-1.030) Urine Protein Negative (Negative) Urine Glucose (UA) Negative (Negative) Medications Administered Current Inpatient Medications Atropine Sulfate (Atropine Sulfate) 0.5 mg IV Q1M PRN PRN Reason: PACU Use-HR<40 &/or Bradycardi Stop: 10/31/18 17:02 Ephedrine Sulfate (Ephedrine Sulfate) 5 mg IV Q5M PRN PRN Reason: PACU Use Only-SBP<90 mmHg Stop: 10/31/18 17:02 Fentanyl Citrate (Fentanyl Citrate) 25 mcg IV Q5M PRN PRN Reason: PACU Use Only-Pain Stop: 10/31/18 17:02 Gabapentin (Neurontin) 200 mg PO BID SUZIE Stop: 11/29/18 20:59 Last Admin: 10/31/18 08:56 Dose: 200 mg Documented by: Heparin Sodium (Porcine) (Heparin Sod 100 Unit/Ml Flush) 5 ml FLUSH PRN PRN PRN Reason: Flush Stop: 11/30/18 01:29 Hydromorphone HCl (Dilaudid) 0.25 mg IV Q5M PRN PRN Reason: PACU Use Only-Pain Stop: 10/31/18 17:02 Sodium Chloride (Nss 1000ml) 1,000 mls @ 80 mls/hr IV .[id number] SUZIE Stop: 11/29/18 18:11 Last Admin: 10/31/18 06:07 Dose: 80 mls/hr Documented by: Acetaminophen (Ofirmev) 1,000 mg in 100 mls @ 400 mls/hr IV Q8H PRN PRN Reason: Pain Stop: 11/29/18 18:11 Last Infusion: 10/31/18 06:33 Dose: Infused Documented by: Piperacillin Sod/Tazobactam (Sod 3.375 gm/ Dextrose) 115 mls @ 28.75 mls/hr IV Q8H [facility]; Protocol Stop: 11/10/18 00:00 Last Admin: 10/31/18 08:56 Dose: 28.8 mls/hr Documented by: Miscellaneous Information (Consult) 1 ea N/A UD PRN PRN Reason: Consult Stop: 11/29/18 18:19 Morphine Sulfate (Morphine Sulfate) 2 mg IV Q4H PRN PRN Reason: Moderate Pain Stop: 11/13/18 18:11 Ondansetron HCl (Zofran) 4 mg IV Q6H PRN PRN Reason: Nausea Stop: 11/29/18 18:11 Ondansetron HCl (Zofran) 4 mg IV ONCE PRN PRN Reason: PACU Use Only-Nausea/Vomiting Stop: 10/31/18 17:02 Valacyclovir HCl (Valtrex) 500 mg PO QPM [facility] Stop: 11/29/18 20:59 Last Admin: 10/30/18 21:05 Dose: 500 mg Documented by:
--- NOTE | 2018-10-31 14:30 | Operative Report ---
Post Operative Report Pre & Post Diagnosis Operation Date: 10/31/18 11:30 Pre-Op Diagnosis: CHOLECYSTITIS Post-Op Diagnosis: CHOLECYSTITIS Procedure Operation Date: 10/31/18 11:30 Actual Procedures p Laparoscopic Cholecystectomy with Cholangiogram(Not Applicable) - Yoel Jacobs DO, KYRA Surgeon Yoel Jacobs DO, KYRA Assistant Plant Control Operator Carlitos Bonner PA Estimated Blood Loss 30 Findings Consistent with Post-Op Diagnosis Severe acute calculus cholecystitis. Transverse colon adhesed to gallbladder, dissected away. Critical view of safety obtained. Cholangiogram showed filling of duodenum and no filling defects. Cystic duct and artery doubly clipped and divided. Intrahepatic gallbladder removed. Good hemostasis. Drain placed. Specimens Gallbladder and contents Drains 10mm FELICIA drain in gallbladder fossa Anesthesia Type General Complications none Disposition Accompanied Patient To Recovery: No Disposition: Recovery Room Indications 78-year-old female with history of chemotherapy and radical hysterectomy and omentectomy for ovarian carcinoma, presented with acute calculus cholecystitis. Plan for lap scopic cholecystectomy, possible cholangiogram, possible open. The risks of the procedure were discussed, all questions were answered, and the patient agreed to proceed with surgery as planned. Description of Procedure The patient was properly identified, consented, and taken to the operating room where she was placed in the supine position. General endotracheal anesthesia was induced. SCDs and a safety belt were placed. Curran catheter was placed. Preoperative antibiotics were already administered on the floor. The patient's abdomen was prepped and draped in the standard sterile fashion. A surgical timeout was performed and all parties were in agreement that this was the correct patient and procedure to be performed and we continued as planned. An stab incision was made in the left upper quadrant and the Veress needle was inserted. Saline drop test confirmed entry into the peritoneum. The abdomen was insufflated with carbon dioxide which the patient tolerated without incident. A subxiphoid incision was made and the abdomen was then entered using the Optiview technique and a 5 mm trocar. The laparoscope was inserted and no damage from initial trocar or Veress needle placement was noted, no gross abnormalities were noted within the 4 quadrants of the abdomen. The Veress needle was removed. A 5 mm port was then placed just superior to the left of the umbilicus. The subxiphoid 5 Gonzalez port was replaced with a 11 mm port, and two 5 mm ports were then placed in the right subcostal position. The patient was placed in reverse Trendelenburg position and rotated towards the left. The abdomen was inspected and a few light adhesions were noted. There is no evidence of significant peritoneal implants. The gallbladder was significantly inflamed. It was aspirated to allow for retraction. The transverse colon and what remained of the omentum was densely adhesed to the gallbladder. This was taken down with blunt dissection. The dome of the gallbladder was retracted towards the left upper quadrant and the infundibulum was retracted toward the right lower quadrant revealing Calot's triangle. There was significant and dense adhesions of the transverse colon, duodenum, and what remained of the omentum to the remainder of the gallbladder. These were taken down with blunt dissection. The cystic duct and artery were circumferentially dissected. A window of safety was obtained showing the cystic duct entering the gallbladder with no aberrant structures noted. The Simmons cholangiocatheter was then used to perform an intraoperative cholangiogram which showed no filling defects, and good filling of the duodenum and hepatic radicals with contrast. The cystic duct and artery were doubly clipped and divided. The gallbladder was then l ifted off the gallbladder fossa with electrocautery. It was intrahepatic. During the dissection the gallbladder was entered and a few small stones were spilled. These were retrieved. The gallbladder was placed in an Endo Catch bag and removed through the subxiphoid port site. The right upper quadrant was irrigated and hemostasis was found to be good. A 10 mm FELICIA drain was placed in the gallbladder fossa and exited through the right subcostal port site. 5 mm trochars were removed under direct visualization and the abdomen was allowed to collapse. The subxiphoid port site fascia was closed with 0 Vicryl suture. The wound was irrigated, and the skin of all ports was closed with 4-0 Monocryl subcuticular sutures. Dermabond was placed over the wounds. The patient was extubated in the operating room and taken to the PACU where she recovered without apparent incident. All sponge, instrument and needle counts were correct at the conclusion of the procedure. The patient tolerated the procedure well. The physician's respiratory care assistant was present and scrubbed for the entirety of the case and was essential in positioning the patient, prepping and draping, retraction and exposure, driving the laparoscope, removal of the gallbladder, closure the incisions, and placement of the dressings. I attest to the content of the Intraoperative Record and any orders documented therein. Any exceptions are noted below.
--- NOTE | 2018-10-31 15:34 | Anesthesiology Progress Note ---
Date of Service October 31, 2018 Anesthesia Post Procedure Vital Signs Vital Signs: Temp Pulse Pulse Resp BP BP Pulse Ox 10/31/18 15:24 36.6 C 62 16 125/72 95 10/31/18 14:50 62 14 100 10/31/18 14:46 63 16 129/73 98 10/31/18 14:45 62 16 100 10/31/18 14:41 61 7 L 128/80 99 10/31/18 14:40 62 16 99 10/31/18 14:36 60 19 127/73 98 10/31/18 14:35 61 15 97 10/31/18 14:33 36.5 C 63 72 14 112/74 112/74 100 10/31/18 14:32 64 4 L 100 10/31/18 11:37 36.5 C 67 95 H 111/61 95 10/31/18 07:31 36.9 C 63 16 101/60 95 10/30/18 22:57 37.2 C 82 16 114/69 94 10/30/18 18:14 36.5 C 72 18 125/81 98 Pain Intensity Lower Abdomen: Pain Intensity: 2 Notes Mental Status: alert / awake / arousable Patient Amnestic to Procedure: Yes Nausea / Vomiting: adequately controlled Pain: adequately controlled Airway Patency, RR, SpO2: stable & adequate BP & HR: stable & adequate Hydration State: stable & adequate Anesthetic Complications: no major complications apparent
[2018-10-31] MEDS ORDERED: PROMETHAZINE HCL 12.5 MG in SODIUM CHLORIDE 0.9% 50 ML IV PRN (16:39)
[2018-10-31] MEDS ORDERED: KETOROLAC TROMETHAMINE 15 MG/ML VIAL IV PRN (16:52)
[2018-10-31] MEDS: VALACYCLOVIR HCL 500 MG TABLET PO SCH (20:29)
[2018-11-01] MEDS: PIPERACILLIN/TAZOBACTAM 3.375 GM in DEXTROSE 5% 100 ML IV SCH ×2 (00:09→09:32)
[2018-11-01] MEDS: SODIUM CHLORIDE 0.9% 1000ML 1,000 ML IV SCH (04:22)
[2018-11-01 06:36] LABS: Hematocrit (blood only) 25.9 % (37-47); Hemoglobin 8.4 g/dL (12.0-16.0); Immature Granulocytes # (auto) 0.04 K/uL (0.00-0.02); Immature Granulocytes % (auto) 0.8 %; Lymphocytes # (auto) 0.87 K/uL (1.2-3.4); Lymphocytes % (auto) 16.6 %; Mean Corpuscular Hgb Conc 32.4 g/dL (32-36); Mean Corpuscular Volume 93.8 fL (80-100); Monocytes # (auto) 0.84 K/uL (0.11-0.59); Neutrophils % (auto) 66.6 %; Platelet Count 150 K/uL (130-400); RDW Coefficient of Variation 14.7 % (11.5-14.5); RDW Standard Deviation 50.3 fL (36.4-46.3); Red Blood Count 2.76 M/uL (4.2-5.4); White Blood Count 5.25 K/uL (4.8-10.8)
[2018-11-01 07:05] LABS: RBC Morphology Unremarkable
[2018-11-01 07:10] LABS: Albumin Level 2.3 gm/dl (3.4-5.0); BUN Creatinine Ratio 12.6 (10-20); Bilirubin Direct 0.1 mg/dl (0-0.2); Bilirubin,Total 0.6 mg/dl (0.2-1); Calcium 8.8 mg/dl (8.5-10.1); Creatinine Clr Calc Pharmacy 51.7 ml/min; Est GFR (African American) 77.1; Est GFR (Non-African American) 66.6; Potassium 3.9 mmol/L (3.5-5.1); Total Protein 6.4 gm/dl (6.4-8.2)
--- NOTE | 2018-11-01 08:37 | Surgery Progress Note ---
Date of Service November 01, 2018 Assessment & Plan (1) Acute cholecystitis: advance diet cont FELICIA Supervising Physician Co-Signing Physician Notes Patient seen and examined, labs reviewed, agree with above. 78-year-old female with chemotherapy for metastatic ovarian cancer POD #1 status post laparoscopic cholecystectomy with cholangiogram for severe acute cholecystitis. Overall doing well, minimal pain, tolerating a regular diet. Incisions with Dermabond, no evidence of infection. Abdomen soft and appropriately tender to palpation. FELICIA drain with serosanguineous fluid minimal drainage. Labs unremarkable except for a hematocrit of 25 which is down slightly from preop at 28. Recommend advance as tolerated, likely discharge this afternoon if continuing to do well. We will keep the drain in place and remove it later this week or early next week. Subjective minimal pain, no nausea, hungry Physical Exam Vital Signs (Past 24 Hours): Last Vital Signs Temp 36.8 C 11/01/18 07:43 Pulse 60 11/01/18 07:43 Resp 18 11/01/18 07:43 BP 106/66 11/01/18 07:43 Pulse Ox 98 11/01/18 07:43 Gastrointestinal (Abdomen): Inspection/Auscultation: + abdominal surgical drain present (20 cc nonbilious); abdomen not distended Percussion/Palpation: abdomen soft
[2018-11-01] MEDS: GABAPENTIN 100 MG CAP PO SCH (09:33)
--- NOTE | 2018-11-01 14:32 | Discharge Summary ---
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 Patient with history of intermittent RUQ pain since March 2018 and at that point time was found to have peritoneal carcinomatosis. Cholecystectomy was then placed on hold. She had EMILIA/BSO/omnectomy/debulking at [facility] on 08/04/18. She is undergoing chemotherapy and following with Dr. Ley. Last chemo 3 weeks ago. Patient with history RUQ pain in 09/[address] CT abd/pelvis at that time showed distended gallbadder without thickening. She follows with General Surgery Dr. Barry on 10/25/18 and at that point in time discussion about possible cholecystectomy in the future. 2 days ago with onset RUQ pain. Patient reports temp of 100 F yesterday. Reports poor appetite. She states has not eaten since 7 PM last night. Prior to onset of pain patient reports had some Prydeinig fries. Last BM 2 days ago. Reports chronic constipation. Pt reports UTI and finished macrobid last week and denies further urinary symptoms. Denies diaphoresis, N/V/D, FRANK, dizziness, syncope, vision changes, neck pain, CP, SOB, orthopnea, palpitations, cough, sore throat, choking, otalgia, rhinorrhea, paresthesias, weakness, extremity weakness, extremity edema, rashes. Admission Exam Per Admitting Provider General: no distress, WDWN Head: normocephalic, atraumatic Eyes: conjunctiva non-injected, anicteric ENT: normal inspection external ears, nose, mucous membranes moist Neck: supple, trachea midline Lungs: clear, no respiratory distress CV: RRR, no pretibial edema Abd: normal BS, soft, +tenderness RUQ Ext: no cyanosis, no calf tenderness Neuro: A&O x 3, no focal deficits noted, normal affect Skin: warm, dry Principal Diagnosis Acute cholecystitis Discharge Data Allergies Allergy/AdvReac Type Severity Reaction Status Date / Time amoxicillin AdvReac Severe SEVERE Verified 10/30/18 17:20 STOMACH UPSET clavulanic acid AdvReac Severe SEVERE Verified 10/30/18 17:20 STOMACH UPSET naproxen AdvReac Severe Abdominal Verified 10/30/18 17:20 Pain chlorhexidine AdvReac Intermediate rash, Verified 10/30/18 17:20 itchy skin, inflammation at site Consultations 10/30/18 15:45 ED Decision to Admit Stat 10/30/18 15:46 Consult General Surgery Stat 10/30/18 18:12 Consult General Surgery Routine Procedures Performed Operation Date: 10/31/18 11:30 Actual Procedures p Laparoscopic Cholecystectomy with Cholangiogram(Not Applicable) - Yoel Jacobs, DO, FACS Current Diagnoses 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) Malignant (primary) neoplasm, unspecified (10/30/18) Acute cholecystitis (10/30/18) Encounter for other preprocedural examination (10/30/18) Allergies amoxicillin Adverse Reaction (Severe, Verified 10/30/18 17:20) SEVERE STOMACH UPSET clavulanic acid Adverse Reaction (Severe, Verified 10/30/18 17:20) SEVERE STOMACH UPSET naproxen Adverse Reaction (Severe, Verified 10/30/18 17:20) Abdominal Pain chlorhexidine Adverse Reaction (Intermediate, Verified 10/30/18 17:20) rash, itchy skin, inflammation at site Height/Weight/Isolation Height 5 ft 5.5 in Weight 69 kg Chemistry 10/30/18 10/31/18 11/01/18 15:55 05:56 05:50 Sodium 135 L 143 D 142 Potassium 3.9 3.8 3.9 Chloride 101 110 H 109 H Carbon Dioxide 26 29 27 Anion Gap 8.0 4.0 6.0 BUN 16 12 11 Creatinine 0.91 0.87 0.85 Glucose 81 78 85 Urinalysis 10/30/18 17:00 Urine Color Yellow Urine Appearance Clear Urine pH 6.0 Ur Specific [place] 1.035 H Urine Protein Negative Urine Glucose (UA) Negative Urine Ketones Trace H Urine Blood 2+ H Urine Nitrite Negative Urine Bilirubin Negative Microbiology 10/30/18 17:00 Urine,Clean Catch Urine Culture - Final Three types of organisms present, all moderate counts. Repeat collection recommended. No further identifications or sensitivities to follow. Hospital Course (1) Acute cholecystitis: s/p lap macario 10/31. Healing well. DC home today (2) Peritoneal carcinomatosis: Hx EMILIA/BSO/omnectomy/debulking at [facility] on 1/4/19. She is undergoing chemotherapy and following with Dr. Ley. Last chemo 3 weeks ago. continue gabapentin, valtrex (3) DVT prophylaxis: SCDs Dispo-cont hospitalization Leslie Hernandez DO [facility] Hospitalist Total Time Total Time Spent Total Time Spent (In Minutes): 45 minutes Total Time Includes: Examination of the Patient, Discharge Planning, Medication Reconciliation and Communication With Other Providers Discharge Plan Discharge Items Patient Disposition: Home - Self-Care Reason For Visit: CHOLECYSTITIS Discharge Diagnosis: Acute cholecystitis Discharge Goals: Improve function Activity: Per 'Additional Instructions' section Lifting: No more than 10 pounds Bathing: No limitations Sexual Activity: When tolerated Exercise/Sports: Gradually increase as tolerated Driving/Machine Use: Resume 3 days after discharge Weightbearing: Left weightbearing and Right weightbearing Non-emergency contact: Primary Care Provider and Surgeon Call non-emergency contact if: you have any medication questions, your pain is not controlled, you have a fever, your temperature is above 101.5 and your wound has increased redness Follow-up/Referrals: Yoel Jacobs DO, KYRA [Physician] - (If you still have the drain, call to have it removed on Tuesday, if no drain then make an appt in 1-2 weeks) Anitra Luo MD [Primary Care Provider] - Diet: Regular Addtl Provider Instructions: Routine follow-up Prescriptions: Continued multivitamin [Multiple Vitamins] Tablet 1 tab PO QPM Qty: 0 RF: 0 vitamin E 200 unit Capsule 200 unit PO QAM Qty: 0 RF: 0 Calcium 600 + D(3) 600 mg calcium- 200 unit Capsule 1 tab PO QAM Qty: 0 RF: 0 acetaminophen [Tylenol Extra Strength] 500 mg Tablet 1,000 mg PO Q6H PRN (Reason: Pain) RF: 0 gabapentin 100 mg Capsule 200 mg PO BID RF: 0 ondansetron 4 mg tablet,disintegrating 4 mg PO Q6H PRN (Reason: nausea and vomiting) Qty: 14 RF: 0 valacyclovir [Valtrex] 500 mg Tablet 500 mg PO QPM RF: 0 glimepiride 1 mg Tablet 2 mg PO UD RF: 0 omeprazole 20 mg Capsule,Delayed Release(Dr/Ec) 20 mg PO DAILY RF: 0 Stand-Alone Forms: [facility], Call Back Authorization Discharge Orders: Discharge Order (Routine); Ordered 11/01/18 Ordered By: Neel Carpenter Admission Data Admit Date/Time: 10/30/18 17:04 Attending Provider: Neel Carpentre Admit Provider: Leslie Hernandez Primary Care Provider: Anitra Luo Other Providers: Dylon Wright ; Leslie Hernandez Service: Surgical Services Other Interventions: Discharge Summary Assessment (RN) Last Done: 11/01/18 12:13
== END 2018-11-01 16:45 | disposition home or self-care (01) | DRG 418 ==
LOC: ED 15:12 → 3W 17:04 → SUATTDRO 17:04 → 3W 17:25

== ENCOUNTER 2020-04-30 15:38 | Inpatient (IN) ==
[2020-04-30] MEDS ORDERED: LORazepam 0.5 MG/1 ML VIAL IV STA ×2 (16:07→19:06)
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
[2020-04-30 17:17] LABS: Basophils # (auto) 0.01 K/uL (0-0.2); Basophils % (auto) 0.1 %; Eosinophils # (auto) 0.03 K/uL (0-0.5); Eosinophils % (auto) 0.4 %; Hematocrit (blood only) 33.5 % (37-47); Hemoglobin 10.8 g/dL (12.0-16.0); Immature Granulocytes # (auto) 0.07 K/uL (0.00-0.02); Lymphocytes # (auto) 1.27 K/uL (1.2-3.4); Lymphocytes % (auto) 17.3 %; Mean Corpuscular Hemoglobin 32.3 pg (25-34); Mean Corpuscular Hgb Conc 32.2 g/dL (32-36); Mean Corpuscular Volume 100.3 fL (80-100); Mean Platelet Volume 8.5 fL (7.4-10.4); Monocytes # (auto) 1.01 K/uL (0.11-0.59); Monocytes % (auto) 13.8 %; Neutrophils # (auto) 4.94 K/uL (1.4-6.5); Neutrophils % (auto) 67.4 %; Platelet Count 164 K/uL (130-400); RDW Coefficient of Variation 15.8 % (11.5-14.5); RDW Standard Deviation 57.1 fL (36.4-46.3); Red Blood Count 3.34 M/uL (4.2-5.4); White Blood Count 7.33 K/uL (4.8-10.8)
[2020-04-30 17:33] LABS: Alanine Aminotransferase 38 U/L (12-78); Albumin Level 3.2 gm/dl (3.4-5.0); Aspartate Aminotransferase 28 U/L (15-37); Blood Urea Nitrogen 17 mg/dl (7-18); Calcium 9.3 mg/dl (8.5-10.1); Carbon Dioxide 27 mmol/L (21-32); Chloride 108 mmol/L (98-107); Creatinine Clr Calc Pharmacy 42.1 ml/min; Est GFR (African American) 55.1; Est GFR (Non-African American) 47.5; Glucose 90 mg/dl (70-99); Magnesium 1.8 mg/dl (1.8-2.4); Potassium 3.7 mmol/L (3.5-5.1); Sodium 141 mmol/L (136-145)
[2020-04-30 17:36] LABS: Albumin Globulin Ratio 0.7 (0.9-2); Alkaline Phosphatase 161 U/L (45-117); Bilirubin,Total 0.7 mg/dl (0.2-1); Globulin 4.3 gm/dl (2.5-4.0); Partial Thromboplastin Ratio 2.1; Total Protein 7.5 gm/dl (6.4-8.2)
--- NOTE | 2020-04-30 18:03 | CT Scan Report ---
CT OF THE HEAD WITHOUT CONTRAST CLINICAL HISTORY: left sided erratic movements eval for mass COMPARISON STUDY: No previous studies for comparison. CT DOSE: 537.48 mGy.cm TECHNIQUE: Helical axial images of the head were obtained without IV contrast. Automated exposure con trol was utilized for the study. A dose lowering technique was utilized adhering to the principles o f ALARA. FINDINGS: No acute intracranial hemorrhage, midline shift or mass effect is present. The ventricular system is unremarkable. The basilar cisterns are patent. No extra-axial collections are present. Ther e are no findings to suggest acute dural sinus thrombosis or acute territorial infarct. No significan t calvarial abnormalities are present. Visualized portions of the sinuses and mastoid air cells are c lear. IMPRESSION: No acute intracranial findings. ACT 112: Negative or not required by law. Electronically signed by: Mal Reed M.D. 04/30/2020 6:02 PM
[2020-04-30] MEDS ORDERED: BENZTROPINE MESYLATE 1 MG/ML 2 ML AMP IV STA (18:44)
[2020-04-30] MEDS ORDERED: HALOPERIDOL LACTATE 5 MG/ML 1 ML VIAL IV STA (19:17)
[2020-04-30 19:23] LABS: Creatine Kinase 234 U/L (26-192)
[2020-04-30 19:27] LABS: Creatine Kinase MB 1.5 ng/ml (0.5-3.6); Troponin I < 0.015 ng/ml (0-0.045)
--- NOTE | 2020-04-30 21:30 | Emergency Department Note ---
ED Visit Note Received patient in signout. History and physical verified by me. Upon receiving signout the [facility] service is concerned about worsening symptoms. They asked that I attempt transfer to a tertiary care center. I did discuss the case with neurology in [place] who refused to take the transfer. They noted tetra benzocaine as the treatment for this as an outpatient therapy. I noted that we do not carry tetra benzocaine here however Kiko does not feel the need to be involved in this case. In the meanwhile because the patient is still extremely symptomatic I tried several medications including 2 of Cogentin, 0.5 mg of Ativan and 0.5 mg of Haldol. Repeat examination revealed improvement the patient's symptoms after the Haldol. Based on this I feel the patient will be able to lay for a MRI and have a CTA performed. VITAL SIGNS - Vital signs and nursing notes were reviewed. GENERAL - 80-year-old female appearing stated age who is in no acute distress. Communicates well with provider and answers questions appropriately. Has jerking uncontrollable movements of left arm and left leg SKIN - Without rashes. HEAD - NC/AT. EYES - PERRL with EOMI bilaterally. Sclera anicteric. Palpebral conjunctiva pink and moist with no injection noted. EARS - No deformities of external structures noted on gross examination bilaterally. No pain elicited with palpation of the tragus bilaterally. External auditory canals without discharge or otorrhea. Tympanic membranes pearly ley without retraction or bulging. No fluid or purulent material visualized behind the TM. Handle of malleus, umbo, cone of light, pars tensa/flaccid all easily visualized. NOSE - Midline and without cyanosis. No epistaxis or purulent drainage noted. Septum midline without deviation or septal hematoma noted. MOUTH/OROPHARYNX - Without perioral cyanosis. Buccal mucosa pink and moist and without leukoplakia. Tongue midline with equal elevation of palate bilaterally. No tonsillar hypertrophy, erythema, or exudates noted. dentition noted. NECK - Neck with FROM. Supple to palpation. lymphadenopathy noted. No nuchal rigidity. LUNGS - Chest wall symmetric without accessory muscle use, intercostals retractions, or central cyanosis. Normal vesicular breath sounds CTA B/L. No wheezes, rales, or rhonchi appreciated. CARDIAC - RRR with S1/S2. No murmur, rubs, or gallops appreciated. ABDOMEN - Abdominal contour without pulsations or visible masses. BS normoactive all four quadrants. No tenderness, palpable masses, hepatosplenomegaly, or ascites noted. EXTREMITIES - No clubbing or peripheral cyanosis. No pretibial edema present. +3/5 radial, posterior tibial, and dorsalis pedis pulses palpated throughout. +5/5 strength noted in UE/LE bilaterally. NEUROLOGIC - Cranial nerves II through XII grossly intact. Sensory intact to light touch throughout. Patellar reflexes +2/4. PSYCH - A&Ox3 and cooperates fully with examiner. Pt is very pleasant and interacts well with examiner. [place] [phone] Magnetic Resonance Report Patient: TEJAL GU AAdmit Date: 04/30/20 MR#: [id number]: [address] Acct ID:[id number]: Date: [address] Zip: [place] [address] Age: 80Location: 2S Sex: FRoom[facility]Bed: [facility] Att Phy: Sally Kwon MDDiagnosis: LT SIDE SPONTANEOUS MOVEMENTS Jeannette Phy: Anitra Luo MDService Date: 05/01/20 Fam Phy:Interpreting Phy: Suman Marrero MD Admit Phy: Haroon Stephenson MD Ordering Phy: Haroon Stephenson MD cc: ~ MRI OF THE BRAIN WITHOUT AND WITH IV CONTRAST CLINICAL HISTORY: Strokelike symptoms OVARIAN CARCINOMA COMPARISON STUDY: No previous studies for comparison. TECHNIQUE: MRI of the brain was performed from the vertex to the skull base utilizing various T1 and T2 weighted sequences. Following the IV administration of 6.9 mL of Gadavist contrast, additional enhanced images were obtained. FINDINGS: Sagittal T1, axial diffusion, proton density and T2 weighted axial, coronal FLAIR, and pre and post axial T1-weighted images were acquired. These were supplemented with post gadolinium coronal T1 weighted images. No intra or extra-axial mass lesions are visualized. There is a 9 mm focus of restricted water diffusion within the left parietal vertex consistent with a small acute/subacute infarct. There is no evidence of ventricular dilatation. Proton density T2-weighted and FLAIR images reveal scattered foci of increased T2 signal within the white matter, likely on a small vessel basis. There are no abnormal flow voids. There is no evidence of pathologic enhancement. IMPRESSION: 1. Small 9 mm focus of restricted water diffusion within the left parietal vertex, consistent with a small acute/subacute infarct. ACT 112: Negative or not required by law. Electronically signed by: Suman Marrero M.D. 05/01/2020 7:28 AM Dictated: 05/01/20716 Transcribed: 05/01/20720 [facility] [place] [phone] CT Scan Report Patient: TEJAL GU AAdmit Date: 04/30/20 MR#: [id number]: [address] Acct ID:[id number]: Date: [address] Zip: [place] [address] Age: 80Location: 2S Sex: FRoom[facility]Bed[facility] Att Phy: Sally Kwon, MDDiagnosis: LT SIDE SPONTANEOUS MOVEMENTS Jeannette Phy: Anitra Luo MDService Date: 04/30/20 Fam Phy:Interpreting Phy: Daniel Petit MD Admit Phy: Haroon Stephenson MD Ordering Phy: Derrick Nelson MD cc: ~ CT ANGIOGRAM OF THE BRAIN; CT ANGIOGRAM OF THE NECK CLINICAL HISTORY: Uncontrolled chorea involving the left side of the body. COMPARISON STUDY: Unenhanced CT of the brain performed concurrently on 04/30/2020. TECHNIQUE: Following the IV administration of 119 of Optiray 320, CT angiogram of the head and neck was performed from the aortic arch to the vertex. Images are reviewed in the axial, sagittal, and coronal planes. 3-D MIPS images are cr eated and assessed. IV contrast was administered without complication. All measurements were calculated based on NASCET criteria. A dose lowering technique was utilized adhering to the principles of ALARA. CT DOSE: 521.77 mGy.cm FINDINGS: Brain parenchyma: There is age-related involutional change noting minimal microangiopathic disease. There is no hemorrhage, mass effect, or evidence of acute territorial ischemia by CT criteria. There is no evidence of enhancing mass lesion on the angiogram phase images. The ventricles, sulci, and cisterns are prominent secondary to involutional change. Ley-white matter differentiation is preserved. No extra-axial fluid collection is seen. Thoracic aorta: Visualized portions of the thoracic aorta are normal in caliber. The aortic arch demonstrates standard 3-vessel anatomy. Right carotid arterial system: The right common carotid artery is widely patent, as are the right internal and external carotid arteries. There is tortuosity of the distal right internal carotid artery. Minimal plaque is noted in the carotid bulb. 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 Left carotid arterial system: The left common carotid artery is widely patent, as are the left internal and external carotid arteries. There is tortuosity of the distal internal carotid artery. Vertebral arteries: The vertebral arteries are widely patent bilaterally and codominant. Subclavian arteries: Widely patent bilaterally. A left subclavian central venous infusion port is partially visualized. Intracranial vasculature: There is mild atherosclerotic calcification of the cavernous carotid arteries. The internal carotid arteries are patent at the skull base, as are the anterior and middle cerebral arteries bilaterally. The vertebrobasilar system and posterior cerebral arteries are widely patent. The vertebral arteries are codominant. There is no aneurysm, high-grade stenosis, or focal vessel cut off seen throughout the intracranial circulation. Jugular veins: Patent bilaterally. Dural sinuses: Patent. Lung apices: Partially visualized upper lobe lung parenchyma appears clear. Soft tissues: The visualized pharyngeal soft tissues are normal in appearance noting angiographic phase technique. The oropharyngeal airway appears widely patent. Low-attenuation thyroid nodules measure up to 1.3 cm. The salivary glands are normal in appearance. There are mildly enlarged superior metastatic lymph nodes. The largest is on image #67 and measures 1.3 x 0.9 cm. No cervical lymphadenopathy is seen. Skeletal structures: The skeletal structures are osteopenic. The calvarium appears intact. The cervical spine is maintained noting multilevel spondylosis. No lytic or blastic lesion is seen. Orbits: The bony orbits are intact. Orbital contents are normal as imaged. Sinuses and mastoids: The paranasal sinuses are clear. The mastoid air cells are well pneumatized. IMPRESSION: 1. There is no hemorrhage, mass effect, or evidence of acute territorial ischemia by CT criteria noting angiographic phase technique. 2. Unremarkable CT angiogram of the brain. 3. 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 4. Otherwise unremarkable CT angiogram of the neck. 5. Mildly enlarged lymph nodes are identified in the superior mediastinum. 6. Additional findings as above. ACT 112: Negative or not required by law. Electronically signed by: Daniel Petit M.D. 05/01/2020 7:40 AM Dictated: 05/01/20729 Transcribed: 05/01/20729 MRI is consistent with a stroke. I did discuss the case again with the hospitalist service who did agree to admit the patient. I have personally spent greater than 30 minutes of critical care time in the direct management of this patient. This includes bedside care, interpretation of diagnostic studies, and testing, discussion with consultants, patient, and family members, and other required patient management activities. This 30 minutes is in excess of all separately billable procedures. .
[2020-04-30] MEDS ORDERED: OPTIRAY 320 125ml IV ONE (21:48)
[2020-04-30] MEDS ORDERED: ACETAMINOPHEN 325 MG TAB PO PRN (22:09)
[2020-04-30] MEDS ORDERED: NITROGLYCERIN SL 0.4 MG/TAB TAB SL PRN (22:09)
[2020-04-30] MEDS ORDERED: POLYETHYLENE (MIRALAX) 17 GM PACK PO PRN (22:09)
[2020-04-30] MEDS ORDERED: ACETAMINOPHEN CAFFEINE PO PRN (22:09)
[2020-04-30] MEDS ORDERED: PANTOprazole 40 MG TAB PO PRN (22:16)
[2020-04-30] MEDS: LORazepam 0.5 MG/1 ML VIAL IV SCH (22:43)
[2020-04-30] MEDS: GABAPENTIN 100 MG CAP PO SCH (22:44)
[2020-04-30] MEDS: valACYclovir HCL 500 MG TABLET PO SCH (22:45)
[2020-04-30] MEDS: haloperidoL 0.5 MG TAB PO SCH (22:45)
[2020-04-30] MEDS: SODIUM CHLORIDE 0.9% 1000ML 1,000 ML IV SCH (22:55)
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
[2020-05-01] MEDS: LORazepam 0.5 MG/1 ML VIAL IV SCH ×6 (02:48→21:48)
[2020-05-01] MEDS: haloperidoL 0.5 MG TAB PO SCH ×4 (05:25→21:48)
[2020-05-01] MEDS: SODIUM CHLORIDE 0.9% 1000ML 1,000 ML IV SCH ×2 (06:01→15:55)
[2020-05-01] MEDS ORDERED: GADOBUTROL 65ML VIAL IV ONE (06:46)
[2020-05-01 07:16] LABS: Basophils # (auto) 0.01 K/uL (0-0.2); Basophils % (auto) 0.2 %; Eosinophils # (auto) 0.06 K/uL (0-0.5); Eosinophils % (auto) 1.3 %; Hematocrit (blood only) 33.4 % (37-47); Hemoglobin 10.4 g/dL (12.0-16.0); Immature Granulocytes # (auto) 0.03 K/uL (0.00-0.02); Immature Granulocytes % (auto) 0.6 %; Lymphocytes # (auto) 0.97 K/uL (1.2-3.4); Lymphocytes % (auto) 20.8 %; Mean Corpuscular Hemoglobin 31.5 pg (25-34); Mean Corpuscular Hgb Conc 31.1 g/dL (32-36); Mean Corpuscular Volume 101.2 fL (80-100); Mean Platelet Volume 8.9 fL (7.4-10.4); Monocytes # (auto) 0.76 K/uL (0.11-0.59); Monocytes % (auto) 16.3 %; Neutrophils # (auto) 2.83 K/uL (1.4-6.5); Neutrophils % (auto) 60.8 %; Platelet Count 144 K/uL (130-400); RDW Coefficient of Variation 16.1 % (11.5-14.5); RDW Standard Deviation 59.5 fL (36.4-46.3); White Blood Count 4.66 K/uL (4.8-10.8)
--- NOTE | 2020-05-01 07:29 | Magnetic Resonance Report ---
MRI OF THE BRAIN WITHOUT AND WITH IV CONTRAST CLINICAL HISTORY: Strokelike symptoms OVARIAN CARCINOMA COMPARISON STUDY: No previous studies for comparison. TECHNIQUE: MRI of the brain was performed from the vertex to the skull base utilizing various T1 and T2 weighted sequences. Following the IV administration of 6.9 mL of Gadavist contrast, additional enh anced images were obtained. FINDINGS: Sagittal T1, axial diffusion, proton density and T2 weighted axial, coronal FLAIR, and pre and post a xial T1-weighted images were acquired. These were supplemented with post gadolinium coronal T1 weight ed images. No intra or extra-axial mass lesions are visualized. There is a 9 mm focus of restricted water diffusion within the left parietal vertex consistent with a small acute/subacute infarct. There is no evidence of ventricular dilatation. Proton density T2-weighted and FLAIR images reveal scattered foci of increased T2 signal within the w janes matter, likely on a small vessel basis. There are no abnormal flow voids. There is no evidence of pathologic enhancement. IMPRESSION: 1. Small 9 mm focus of restricted water diffusion within the left parietal vertex, consistent with a small acute/subacute infarct. ACT 112: Negative or not required by law. Electronically signed by: Suman Marrero M.D. 05/01/2020 7:28 AM
--- NOTE | 2020-05-01 07:41 | CT Scan Report ---
CT ANGIOGRAM OF THE BRAIN; CT ANGIOGRAM OF THE NECK CLINICAL HISTORY: Uncontrolled chorea involving the left side of the body. COMPARISON STUDY: Unenhanced CT of the brain performed concurrently on 04/30/2020. TECHNIQUE: Following the IV administration of 119 of Optiray 320, CT angiogram of the head and neck w as performed from the aortic arch to the vertex. Images are reviewed in the axial, sagittal, and molly nal planes. 3-D MIPS images are created and assessed. IV contrast was administered without complicati on. All measurements were calculated based on NASCET criteria. A dose lowering technique was utilize d adhering to the principles of ALARA. CT DOSE: 521.77 mGy.cm FINDINGS: Brain parenchyma: There is age-related involutional change noting minimal microangiopathic disease. T here is no hemorrhage, mass effect, or evidence of acute territorial ischemia by CT criteria. There i s no evidence of enhancing mass lesion on the angiogram phase images. The ventricles, sulci, and cist erns are prominent secondary to involutional change. Ley-white matter differentiation is preserved. No extra-axial fluid collection is seen. Thoracic aorta: Visualized portions of the thoracic aorta are normal in caliber. The aortic arch demo nstrates standard 3-vessel anatomy. Right carotid arterial system: The right common carotid artery is widely patent, as are the right int ernal and external carotid arteries. There is tortuosity of the distal right internal carotid artery. Minimal plaque is noted in the carotid bulb. 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 Left carotid arterial system: The left common carotid artery is widely patent, as are the left food and beverage intern al and external carotid arteries. There is tortuosity of the distal internal carotid artery. Vertebral arteries: The vertebral arteries are widely patent bilaterally and codominant. Subclavian arteries: Widely patent bilaterally. A left subclavian central venous infusion port is par tially visualized. Intracranial vasculature: There is mild atherosclerotic calcification of the cavernous carotid arteri es. The internal carotid arteries are patent at the skull base, as are the anterior and middle cerebr al arteries bilaterally. The vertebrobasilar system and posterior cerebral arteries are widely patent . The vertebral arteries are codominant. There is no aneurysm, high-grade stenosis, or focal vessel c ut off seen throughout the intracranial circulation. Jugular veins: Patent bilaterally. Dural sinuses: Patent. Lung apices: Partially visualized upper lobe lung parenchyma appears clear. Soft tissues: The visualized pharyngeal soft tissues are normal in appearance noting angiographic pha se technique. The oropharyngeal airway appears widely patent. Low-attenuation thyroid nodules measure up to 1.3 cm. The salivary glands are normal in appearance. There are mildly enlarged superior metas tatic lymph nodes. The largest is on image #67 and measures 1.3 x 0.9 cm. No cervical lymphadenopathy is seen. Skeletal structures: The skeletal structures are osteopenic. The calvarium appears intact. The cervic al spine is maintained noting multilevel spondylosis. No lytic or blastic lesion is seen. Orbits: The bony orbits are intact. Orbital contents are normal as imaged. Sinuses and mastoids: The paranasal sinuses are clear. The mastoid air cells are well pneumatized. IMPRESSION: 1. There is no hemorrhage, mass effect, or evidence of acute territorial ischemia by CT criteria noti ng angiographic phase technique. 2. Unremarkable CT angiogram of the brain. 3. 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 4. Otherwise unremarkable CT angiogram of the neck. 5. Mildly enlarged lymph nodes are identified in the superior mediastinum. 6. Additional findings as above. ACT 112: Negative or not required by law. Electronically signed by: Daniel Petit M.D. 05/01/2020 7:40 AM
[2020-05-01] MEDS: ASPIRIN 81 MG ECTAB PO SCH (08:03)
[2020-05-01] MEDS: CYANOCOBALAMIN 500 MCG TABLET (VITAMIN B-12) PO SCH (08:03)
[2020-05-01] MEDS: CHOLECALCIFEROL 1,000 UNITS 25 MCG TAB PO SCH (08:03)
[2020-05-01] MEDS: LACTOBACILLUS ACIDOPHILUS (FLORANEX) TAB PO SCH (08:03)
[2020-05-01] MEDS: GABAPENTIN 100 MG CAP PO SCH ×3 (08:03→21:17)
[2020-05-01 08:10] LABS: BUN Creatinine Ratio 13.9 (10-20); Calcium 9.6 mg/dl (8.5-10.1); Creatinine Clr Calc Pharmacy 44.2 ml/min; Est GFR (African American) 60.3; Magnesium 2.2 mg/dl (1.8-2.4); Potassium 3.7 mmol/L (3.5-5.1)
[2020-05-01] MEDS: ATORVASTATIN 40 MG TAB PO SCH (08:12)
[2020-05-01] MEDS: CLOPIDOGREL BISULFATE 75 MG TAB PO SCH (08:12)
--- NOTE | 2020-05-01 08:13 | Communication Note ---
Date of Service: May 01, 2020 MRI of brain : 1. Small 9 mm focus of restricted water diffusion within the left parietal vertex, consistent with a small acute/subacute infarct. pt is on Aspirin 81 mg daily added Plavix 75 high intensity statin Lipitor 40 mg will update Neurology . Sally Kwon MD
[2020-05-01 08:49] LABS: Chol HDL Ratio 4; Cholesterol 210 mg/dl (0-200); HDL Cholesterol 49 mg/dl; LDL Cholesterol Calculated 122 mg/dl; Triglycerides 197 mg/dl (0-150); VLDL Cholesterol 39 mg/dl
[2020-05-01] MEDS ORDERED: [UNRECOGNIZED DRUG - OTHER] PO SCH (09:00)
--- NOTE | 2020-05-01 12:59 | Electroencephalogram ---
EEG Procedure Note Date of Service May 01, 2020 Start / End Times Start Time: 1104 End Time: 1124 Referring Physician Nik Warner MD History Left hemichorea question seizure disorder Home Medication List Home Medications Medication Instructions Recorded Confirmed Type valacyclovir [Valtrex] 500 mg PO HS 05/18/18 04/30/20 History gabapentin 200 mg PO TID 10/01/18 04/30/20 History omeprazole 20 mg PO DAILY PRN 10/30/18 04/30/20 History meloxicam 15 mg tablet 15 mg PO DAILY PRN #30 tab 02/29/20 04/30/20 Rx acetaminophen-caffeine [Excedrin 1 tab PO Q12H PRN 04/30/20 04/30/20 History Tension Headache] aspirin 81 mg PO QAM 04/30/20 04/30/20 History cholecalciferol (vitamin D3) 0 mcg PO DAILY 04/30/20 04/30/20 History [Vitamin D3] cyanocobalamin (vitamin B-12) 0 mcg PO DAILY 04/30/20 04/30/20 History [Vitamin B-12] lactobacillus comb no.10 0 mmu cells PO DAILY 04/30/20 04/30/20 History [Probiotic] Inpatient Medication List Aspirin (Aspirin 81 Mg Ectab) [facility]: 05/31/20 08:59 Last Admin: 05/01/20 08:03 Dose: 81 mg Documented by: [id number] Atorvastatin Calcium (Atorvastatin 40 Mg Tab) 40 mg PO QAM [facility] Stop: 05/31/20 08:59 Last Admin: 05/01/20 08:12 Dose: 40 mg Documented by: [id number] Clopidogrel Bisulfate (Clopidogrel Bisulfate 75 Mg Tab) 75 mg PO QAM [facility] Stop: 05/31/20 08:59 Last Admin: 05/01/20 08:12 Dose: 75 mg Documented by: [id number] Cyanocobalamin (Cyanocobalamin 500 Mcg Tablet (Vitamin B-12)) 1,000 mcg PO DAILY [facility] Stop: 05/31/20 08:59 Last Admin: 05/01/20 08:03 Dose: 1,000 mcg Documented by: [id number] Gabapentin (Gabapentin 100 Mg Cap) 200 mg PO TID [facility] Stop: 05/30/20 22:08 Last Admin: 05/01/20 08:03 Dose: 200 mg Documented by: [id number] Admin: 04/30/20 22:44 Dose: 200 mg Documented by: [id number] Haloperidol (Haloperidol 0.5 Mg Tab) 0.5 mg PO Q6H [facility] Stop: 05/30/20 22:29 Last Admin: 05/01/20 10:16 Dose: 0.5 mg Documented by: [id number] Admin: 05/01/20 05:25 Dose: 0.5 mg Documented by: [id number] Admin: 04/30/20 22:45 Dose: 0.5 mg Documented by: [id number] Lorazepam (Ativan) 0.5 mg in 1 mls @ 1 mls/min IV Q4H [facility] Stop: 05/30/20 22:08 Last Admin: 05/01/20 10:20 Dose: 1 mls/min Documented by: [id number] Admin: 05/01/20 08:13 Dose: Not Given Documented by: [id number] Admin: 05/01/20 02:48 Dose: 1 mls/min Documented by: [id number] Admin: 04/30/20 22:43 Dose: 1 mls/min Documented by: [id number] Sodium Chloride (Nss 1000ml) 1,000 mls @ 125 mls/hr IV .Q8H [facility] Stop: 05/30/20 22:08 Last Admin: 05/01/20 06:01 Dose: 125 mls/hr Documented by: [id number] Infusion: 05/01/20 06:01 Dose: 125 mls/hr Documented by: [id number] Admin: 04/30/20 22:55 Dose: 125 mls/hr Documented by: [id number] Lactobacillus Acidophilus (Lactobacillus Acidophilus (Floranex) Tab) 4 tab PO DAILY [facility] Stop: 05/31/20 08:59 Last Admin: 05/01/20 08:03 Dose: 4 tab Documented by: [id number] Valacyclovir HCl (Valacyclovir Hcl 500 Mg Tablet) 500 mg PO HS [facility] Stop: 05/07/20 22:08 Last Admin: 04/30/20 22:45 Dose: 500 mg Documented by: [id number] Vitamin D (Cholecalciferol 1,000 Units 25 Mcg Tab) 1,000 units PO DAILY [facility] Stop: 05/31/20 08:59 Last Admin: 05/01/20 08:03 Dose: 1,000 units Documented by: [id number] Discontinued Medications Benztropine Mesylate (Benztropine Mesylate 1 Mg/Ml 2 Ml Amp) 2 mg IV NOW STA Stop: 04/30/20 18:45 Last Admin: 04/30/20 18:53 Dose: 2 mg Documented by: [id number] Gadobutrol (Gadobutrol 65ml Vial) 6.9 ml IV ONCE ONE Stop: 05/01/20 06:47 Last Admin: 05/01/20 06:26 Dose: 6.9 ml Documented by: [id number] Haloperidol Lactate (Haloperidol Lactate 5 Mg/Ml 1 Ml Vial) 0.5 mg IV NOW STA Stop: 04/30/20 19:18 Last Admin: 04/30/20 19:35 Dose: 0.5 mg Documented by: [id number] Lorazepam (Ativan) 0.5 mg in 1 mls @ 1 mls/min IV NOW STA Stop: 04/30/20 16:08 Last Admin: 04/30/20 16:57 Dose: 1 mls/min Documented by: [id number] Lorazepam (Ativan) 0.5 mg in 1 mls @ 1 mls/min IV NOW STA Stop: 04/30/20 19:07 Last Admin: 04/30/20 19:35 Dose: 1 mls/min Documented by: [id number] Ioversol (Optiray 320 125ml) 119 ml IV ONCE ONE Stop: 04/30/20 21:49 Last Admin: 04/30/20 21:49 Dose: 119 ml Documented by: [id number] Description This is a 21 electrode EEG with a single channel dedicated to limited EKG. The electrodes were placed in accordance with the International 10-20 system. This EEG was done as a bedside recording and reflects initially some muscle movement artifact present tracing progresses becomes relatively free of these and quite interpretable. The recording was done during wakefulness. Unfortunately video component was not available for review due to technical limitations. Drowsiness light sleep not recorded. Photic stimulation was performed Overall the study reveals evidence for normal-appearing background rhythm in the alpha range of up to 10 Hz maximal frequency and 30 V maximal amplitude which is maximum posterior head regions bilaterally symmetrical. Central, symmetrical, modest voltage mid frequency theta activity seen. Beta activity seen bifrontally Photic stimulation provokes no important changes and specifically reveals no photo myogenic or photoparoxysmal component Drowsiness light sleep are recorded No time during waking tracing is evidence for potentially epileptogenic activity Interpretation Normal EEG during wakefulness Clinical Correlation This is a normal EEG revealing no evidence for focal or generalized encephalopathy no evidence for potentially epileptogenic activity and specifically no evidence to correlate with the presence of any abnormal motor movements involving the left upper and lower extremities Nik Warner MD
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
--- NOTE | 2020-05-01 18:34 | Hospitalist Progress Note ---
Date of Service May 01, 2020 Assessment & Plan (1) Acute CVA (cerebrovascular accident): MRI of brain shows acute /sub acute stroke on left parietal area : Presented with a left-sided choreoathetoid movements,personality change, forgetfulness, Appreciate input from neurology, Other work-up was sent for paraneoplastic syndrome/[id number] receptor encephalitis Patient will need close follow-up with neurology in the outpatient Not have any focal neurological deficit Elevated CK: Mild elevation of CK possible secondary to combination of dehydration, constant choreoathetoid movement, muscle spasm Given IV fluids, DC statin History of metastatic breast cancer, currently on chemo Follows with hematology oncology as an outpatient Disposition: Expected to be discharged home next 24 hours Admission and Anticipated Discharge Date Admission Date: April 30, 2020 Subjective pt reports of feeling better improvement of choreod movments of left upper extremity still having difficulty with memory recall speech remains fluent no gait disturbance , no weakness or apresthesia Review of Systems Review of Systems: All systems reviewed & are unremarkable except as noted in HPI & below Physical Exam Constitutional: WD/WN, vitals as above Eyes: PERRL, conjunctivae normal, anicteric sclerae ENMT: external ear and nose normal, oropharynx normal Neck: trachea midline, no thyromegaly Respiratory: normal respiratory effort, lungs clear to auscultation Cardiovascular: RRR, no murmur, no edema Gastrointestinal (Abdomen): normal bowel sounds, soft, nontender, no hepatosplenomegaly Musculoskeletal: no cyanosis or clubbing, extremities motor strength 5/5 Skin: no rashes, warm and dry Neurologic: PERRL, EOMI, accommodation nl, no face palsy, no dysarthria Psychiatric: A+Ox3, euthymic affect Results & Data Results & Data ([facility]) Vital Signs (Past 12 Hours) Vital Signs Temp Pulse Pulse Resp BP Pulse Ox 05/01/20 15:25 71 05/01/20 15:21 37.0 C 79 20 119/75 93 05/01/20 12:20 36.8 C 79 19 100/60 93 05/01/20 07:56 36.5 C 65 16 103/65 93 05/01/20 07:45 87
[2020-05-01] MEDS: valACYclovir HCL 500 MG TABLET PO SCH ×2 (21:16→22:02)
[2020-05-01] MEDS: SENNA 8.6 MG TAB PO SCH (21:17)
[2020-05-02] MEDS: LORazepam 0.5 MG/1 ML VIAL IV SCH ×3 (02:48→10:35)
[2020-05-02] MEDS: haloperidoL 0.5 MG TAB PO SCH ×2 (04:44→10:36)
[2020-05-02 05:42] LABS: Amphetamines+Metham, Urine Neg (Neg); Barbiturates, Urine Neg (Neg); Benzodiazepine, Urine Neg (Neg); Cocaine, Urine Neg (Neg); MDMA (Ecstacy), Urine Neg (Neg); Methadone, Urine Neg (Neg); Opiate, Urine Neg (Neg); Phencyclidine, Urine Neg (Neg)
--- NOTE | 2020-05-02 05:44 | Electrocardiogram Report ---
Test Reason : Blood Pressure : / mmHG Vent. Rate : 063 BPM Atrial Rate : 063 BPM P-R Int : 142 ms QRS Dur : 092 ms QT Int : 396 ms P-R-T Axes : 051 024 022 degrees QTc Int : 405 ms Normal sinus rhythm Normal ECG When compared with ECG of 30-OCT-2018 15:33, No significant change was found Confirmed by Derek Martinez ([id number]) on 05/02/2020 5:44:22 AM Referred By: REFERRED SELF Confirmed By:Derke Martinez
[2020-05-02] MEDS: CHOLECALCIFEROL 1,000 UNITS 25 MCG TAB PO SCH (08:34)
[2020-05-02] MEDS: GABAPENTIN 100 MG CAP PO SCH ×3 (08:35→21:03)
[2020-05-02] MEDS: ASPIRIN 81 MG ECTAB PO SCH (08:35)
[2020-05-02] MEDS: CLOPIDOGREL BISULFATE 75 MG TAB PO SCH (08:35)
[2020-05-02] MEDS: CYANOCOBALAMIN 500 MCG TABLET (VITAMIN B-12) PO SCH (08:35)
[2020-05-02] MEDS: ATORVASTATIN 40 MG TAB PO SCH (08:36)
[2020-05-02] MEDS: LACTOBACILLUS ACIDOPHILUS (FLORANEX) TAB PO SCH (08:36)
[2020-05-02] MEDS: valACYclovir HCL 500 MG TABLET PO SCH (08:38)
--- NOTE | 2020-05-02 13:33 | Progress Notes ---
DATE: 05/02/2020 NEUROLOGY CONSULTATION PROGRESS NOTE A 80-year-old female. SUBJECTIVE: The patient was seen and examined. The patient was started on haloperidol for choreiform movements but stopped due to sedation. Dyskinesia not so bad at the moment and patient feels ok. OBJECTIVE: VITAL SIGNS: Blood pressure 125/72, pulse is 78, respiratory rate 17, temperature is 36.5 degrees Celsius, oxygen saturation is 91% on room air. Appears stated age. Face is symmetric. Speech is soft. Appears anxious. Gait is wide based. No hemiballismus or chorea noted. No oral facial dyskinesia. Following commands. No myoclonic jerks. Moving all 4 extremities well. Sensation is intact. DIAGNOSTIC TESTING: WBC 4.66, hemoglobin 10.4, platelet count 144. Chemistries: Sodium 142, potassium 3.7, chloride 110, creatinine 1.03. There was no repeat urinalysis on this admission. MRI brain imaging read as small 9 mm focus of restricted water diffusion within the left parietal vertex consistent with small acute to subacute infarct. 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 ASSESSMENT AND PLAN: A 80-year-old woman with a history of ovarian cancer, currently on chemotherapy, admitted with acute-onset left upper extremity dyskinesias or choreiform movements as well as oral facial dyskinesias in the setting of paranoia and behavioral changes. MRI brain with and without contrast was reviewed and the lesion noted in the left parietal vertex appears to be artifact as I do not see a clear ADC correlate. I also agree with Dr. Warner as this would not explain her current symptoms. Her CRP was mildly elevated and routine EEG was normal with no evidence of epileptiform activity. NMDA receptor antibody is pending. The patient will likely require a paraneoplastic autoantibody panel with antineuronal antibodies as an outpatient. We will also require checking a lupus antibody as well as a sedimentation rate and an antiphospholipid antibody. These can be ordered as outpatient. I would also add on a GAD65 antibody, which could be ordered as an outpatient. May need to consider formal lumbar puncture, which can also be performed as an outpatient. As patient did not tolerate Haloperidol due sedation can try Zyprexa 2.5 mg Q12 PRN. Follow up with Neurology as outpatient as planned. MTDD
[2020-05-02] MEDS ORDERED: OLANZAPINE 2.5 MG TAB PO SCH (17:00)
[2020-05-02] MEDS ORDERED: OLANZAPINE 2.5 MG TAB PO PRN (17:01)
--- NOTE | 2020-05-02 17:03 | Hospitalist Progress Note ---
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 Ramirez, feels possible artifact, patient will not need to be on dual antiplatelets Continue an aspirin 81 mg daily Statin will be discontinued due to elevated CPK level Zyprexa low-dose 2.5 mg by mouth twice daily ordered as needed for agitation, choreoathetoid movement lab work-up sent for paraneoplastic syndrome/[id number] receptor encephalitis Will need further work-up: Paraneoplastic panel, lumbar puncture as outpatient Appointment scheduled with neurology on 05/12/2020 Patient will be observed overnight, as started with Zyprexa, plan to discharge home tomorrow if remains clinically well Elevated CK: Mild elevation of CK possible secondary to combination of dehydration, constant choreoathetoid movement, muscle spasm Given IV fluids, DC statin History of metastatic breast cancer, currently on chemo Follows with hematology oncology as an outpatient Disposition: Expected to be discharged home next 24 hours Spent updated at bedside Admission and Anticipated Discharge Date Admission Date: April 30, 2020 Subjective Patient reports of feeling better, still have significant forgetfulness, Involuntary movement of left arm, has improved significantly No headache no vision change Review of Systems Review of Systems: All systems reviewed & are unremarkable except as noted in HPI & below Physical Exam Constitutional: WD/WN, vitals as above Eyes: PERRL, conjunctivae normal, anicteric sclerae ENMT: external ear and nose normal, oropharynx normal Neck: trachea midline, no thyromegaly Respiratory: normal respiratory effort, lungs clear to auscultation Cardiovascular: RRR, no murmur, no edema Gastrointestinal (Abdomen): normal bowel sounds, soft, nontender, no hepatosplenomegaly Musculoskeletal: no cyanosis or clubbing, extremities motor strength 5/5 Skin: no rashes, warm and dry Neurologic: PERRL, EOMI, accommodation nl, no face palsy, no dysarthria Psychiatric: A+Ox3, euthymic affect Results & Data Results & Data ([facility]) Vital Signs (Past 12 Hours) Vital Signs Temp Pulse Pulse Resp BP Pulse Ox 05/02/20 16:50 36.7 C 89 18 112/74 95 05/02/20 16:01 95 H 05/02/20 11:42 36.5 C 78 17 125/72 91 05/02/20 08:19 36.8 C 68 18 123/72 91 05/02/20 07:26 66
[2020-05-02] MEDS: SENNA 8.6 MG TAB PO SCH (21:03)
[2020-05-03] MEDS: GABAPENTIN 100 MG CAP PO SCH ×3 (08:45→20:54)
[2020-05-03] MEDS: ASPIRIN 81 MG ECTAB PO SCH (08:45)
[2020-05-03] MEDS: valACYclovir HCL 500 MG TABLET PO SCH (08:45)
[2020-05-03] MEDS: CYANOCOBALAMIN 500 MCG TABLET (VITAMIN B-12) PO SCH (08:46)
[2020-05-03] MEDS: LACTOBACILLUS ACIDOPHILUS (FLORANEX) TAB PO SCH (08:46)
[2020-05-03] MEDS: CHOLECALCIFEROL 1,000 UNITS 25 MCG TAB PO SCH (08:47)
[2020-05-03] MEDS ORDERED: KETOROLAC TROMETHAMINE 15 MG/ML VIAL IV ONE (10:08)
[2020-05-03] MEDS: HEPARIN 100 UNIT/ML 5ML FLUSH FLUSH PRN (12:24)
[2020-05-03] MEDS ORDERED: COLCHICINE 0.6 MG TAB PO ONE (12:39)
--- NOTE | 2020-05-03 12:55 | Hospitalist Progress Note ---
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 Ramirez, feels possible artifact, patient will not need to be on dual antiplatelets Continue an aspirin 81 mg daily Patient started on low-dose of diet Zyprexa, significant improvement of involuntary movement, cognition Patient will be discharged on a scheduled dose of Zyprexa low-dose 2.5 mg by mouth twice daily lab work-up sent for paraneoplastic syndrome/[id number] receptor encephalitis Will need further work-up: Paraneoplastic panel, lumbar puncture as outpatient Acute right knee pain/acute gout arthritis Left acute right knee pain, swelling, this morning, possible gout flare Given a dose of Toradol, with improvement of symptoms. She is ordered colchicine, p.o. naproxen 500 mg twice daily will Benefit with outpatient allopurinol as a prophylaxis Defer it to family physician History of metastatic breast cancer, currently on chemo Follows with hematology oncology as an outpatient Disposition: Expected to be discharged home next 24 hours-his right knee pain improved Referral made for home physical therapy Son updated at bedside Admission and Anticipated Discharge Date Admission Date: April 30, 2020 Subjective Influenza A left-sided arm movement has much improved since this morning, Had an uneventful night Much more oriented focused this morning No headache no blurred vision, no weakness or paresthesia Experienced severe pain swelling on the right knee -since this morning, unable to bear weight No history of fall or trauma Review of Systems Musculoskeletal: + joint pain (Right knee pain) Physical Exam Constitutional: WD/WN, vitals as above Eyes: PERRL, conjunctivae normal, anicteric sclerae ENMT: external ear and nose normal, oropharynx normal Neck: trachea midline, no thyromegaly Respiratory: normal respiratory effort, lungs clear to auscultation Cardiovascular: RRR, no murmur, no edema Gastrointestinal (Abdomen): normal bowel sounds, soft, nontender, no hepatosplenomegaly Musculoskeletal: Extremities: + joint enlargement (Right knee swelling noted, increased warmth, tenderness, overlying right elbow, minimum joint movement secondary to pain, no open wounds noted) Skin: no rashes, warm and dry Neurologic: PERRL, EOMI, accommodation nl, no face palsy, no dysarthria Psychiatric: A+Ox3, euthymic affect Results & Data Results & Data ([facility]) Vital Signs (Past 12 Hours) Vital Signs Temp Pulse Resp BP Pulse Ox 05/03/20 07:45 36.9 C 71 18 128/82 94
[2020-05-03] MEDS: PANTOprazole 40 MG TAB PO SCH (14:28)
[2020-05-03] MEDS: NAPROXEN 250 MG TAB PO SCH (20:53)
[2020-05-03] MEDS: SENNA 8.6 MG TAB PO SCH (20:53)
[2020-05-03] MEDS: OLANZAPINE 2.5 MG TAB PO SCH (20:53)
[2020-05-04] MEDS: HEPARIN 100 UNIT/ML 5ML FLUSH FLUSH PRN (08:06)
[2020-05-04 08:21] VITALS: BP 105/66; TEMP 97.5; O2SAT 96
[2020-05-04] MEDS: PANTOprazole 40 MG TAB PO SCH (08:54)
[2020-05-04] MEDS: OLANZAPINE 2.5 MG TAB PO SCH (08:55)
[2020-05-04] MEDS: CYANOCOBALAMIN 500 MCG TABLET (VITAMIN B-12) PO SCH (08:55)
[2020-05-04] MEDS: NAPROXEN 250 MG TAB PO SCH (08:56)
[2020-05-04] MEDS: CHOLECALCIFEROL 1,000 UNITS 25 MCG TAB PO SCH (08:56)
[2020-05-04] MEDS: LACTOBACILLUS ACIDOPHILUS (FLORANEX) TAB PO SCH (08:57)
[2020-05-04] MEDS: GABAPENTIN 100 MG CAP PO SCH ×2 (08:57→13:22)
[2020-05-04] MEDS: ASPIRIN 81 MG ECTAB PO SCH (08:58)
[2020-05-04] MEDS: valACYclovir HCL 500 MG TABLET PO SCH (08:59)
[2020-05-04] MEDS ORDERED: COLCHICINE 0.6 MG TAB PO SCH (09:00)
[2020-05-04 14:24] VITALS: PULSE 82
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
[2020-05-07] MEDS ORDERED: INFLUENZA ADMINISTRATION CHARGE ONE (08:00)
[2020-05-07] MEDS ORDERED: INFLUENZA VACCINE HIGH DOSE 65+ 0.5 ML SYR IM ONE (08:00)
--- NOTE | 2020-06-03 05:51 | Coding Query ---
CODING QUERY To promote full compliance with coding requirements relating to patient care, provider participation is requested in all cases of accordion repairer uncertainty. Please assist us with the question(s) below: Coding Question: Please clarify the cause of this patient's involuntary movements (if known) as there is conflicting information in the chart. Thank you so much for your help with this! Have a great day! ( x) Abnormal Involuntary Movements, cause unknown ( ) Abnormal Involuntary Movements, due to acute/subacute stroke ( ) Other, (explain) Thank you! Jana Wynne Principal Diagnosis: "that condition established after study, to be chiefly responsible for occasioning the admission of the patient to the hospital for care." Co-Existing Principal Diagnosis: "when two or more diagnoses equally meet the criteria for principal diagnosis as determined by the circumstances of admission, diagnostic work up, and/or therapy provided, and the Alphabetic Index, Tabular List, or another coding guideline does not provide sequencing direction, any one of the diagnoses may be sequenced first." "When the physician has documented what appears to be a current diagnosis in the body of the record, but has not included the diagnosis in the final diagnostic statement, the physician should be asked whether the diagnosis should be added." (Source Coding Clinic 2 QTR90. p3-4) JESS
== END 2020-05-04 15:09 | disposition home or self-care (01) | DRG 545 ==
LOC: ED 15:38 → 2S 20:24 → 2W 05-01 18:34

== ENCOUNTER 2020-09-07 09:09 | Inpatient (IN) ==
[2020-09-07] MEDS ORDERED: METOCLOPRAMIDE HCL INJ 5 MG/ML 2 ML VIAL IV STA (09:50)
[2020-09-07] MEDS ORDERED: SODIUM CHLORIDE 0.9% 1000ML 1,000 ML IV ONE ×2 (09:50→12:17)
[2020-09-07] MEDS ORDERED: ACETAMINOPHEN 1,000 MG/100 ML VIAL IV STA (09:50)
[2020-09-07] MEDS ORDERED: FAMOTIDINE 20MG IV PUSH 20 MG/5 ML SYR IV STA (09:51)
--- NOTE | 2020-09-07 09:56 | Emergency Department Note ---
Impression & Plan Bilateral pulmonary embolism, Elevated troponin, Metastatic disease, Hypoxia ED Provider Note NAME: TEJAL GU AGE: 80 SEX: F ARRIVES VIA: Ambulance INFORMANT: Patient, ED PROVIDER(S): Bradley Melendrez MD CHIEF COMPLAINT: Chest pain. PLAN: Disposition: Admit MEDICAL DECISION MAKING: The patient is a pleasant 80-year-old woman with a past medical history ovarian cancer peritoneal carcinomatosis who has been undergoing treatment but in July her treatment had decided to discontinue her chemotherapy who presents emergency department today with palpitations/increased heart rate since yesterday which evolved into chest pain and has been constant into today and so presents emergency department realizing she should have come in yesterday. She also reports feeling some increased reflux and burping though she feels this is unrelated to her pain. She denies any recent fevers, chills, cough, congestion, diarrhea, urinary symptoms. She reports she has had constipation but did move her bowels yesterday after starting Benefiber per recommendation of her PCP on Tuesday. On arrival the patient is fatigued uncomfortable but no acute distress, afebrile with heart in the 100s and O2 saturation 92% on room air with vital signs otherwise stable. She appears clinically dry. Her lungs are clear. Her abdomen is soft and is nontender at this time. EKG with sinus tachycardia with ST and TW abnormalities. No overt ST elevation. CXR negative for acute cardiopulmonary process. WBC, H/H, platelets wnl. Chemistry without acidosis. BUN/Cr > 20 c/w patient's clinically dry appearance. LFTs and electrolytes unremarkable. Initial Troponin 0.180. BNP 1500, high-end normal. Lipase wnl. Of note, patient had brief unwitnessed syncopal episode prior to CT when she went to the bathroom and to urinate and had also moved her bowels and reports walking up on the ground but denied any pain to her head or elsewhere and did not think she hit her head. Patient was re-examined and did not have any traumatic findings however CT head was also ordered and was negative. CTA of chest and CT abd/pelvis demonstrates extensive bilateral PEs with saddle emboli CT evidence of right heart strain in additional to worsening peritoneal carcinomatosis. I performed and limited bedside cardiac US with sub-optimal views but did support RV strain with dilated RV and bowing of IVS. Upon re- evaluation patient was feeling some improvement following IVF hydration and supplemental O2. HR was improved to 90s-100s and BP stable from upper 90s-100s/70-80s. I did review the critical findings with the patient and recommendation for admission for treatment. The patient did agree and requested to keep her palliative care team involved. She confirmed that she continues to be DNR/DNI. She denies any recent GI bleeding or bleeding otherwise. Treatment initiated with IV Heparin, standard bolus and gtt. Case was discussed with Kiko Shaw PAC, with Dr. Doyle Hoover hospitalist who will evaluate the patient for admission. I updated on evaluation and plan per patient's request. Triage Nursing notes reviewed and agree them. Prior medical records reviewed Vital Signs: reviewed and remarkable for tachcyardia. Differential diagnosis: Cardiac ischemia, aortic dissection, pulmonary embolism, pneumothorax, pneumonia, pericarditis, myocarditis, esophageal rupture, GERD, cholecystitis, pancreatitis, musculoskeletal, as well as other pathologies. ER treatment provided: See below. Diagnostics interpreted by me: ECG: Sinus tachycardia, 115 bpm, no ectopy, incomplete RBBB, ST and TW abnormalities. no overt ST elevation. Cardiac Monitoring: An order for continuous cardiac monitoring was placed and demonstrated sinus tachycardia, 115 bpm, no ectopy. Laboratory studies: See below Imaging studies: XR chest 1V portable HISTORY: 80 years-old Female Chest Pain acute atypical chest pain COMPARISON: Chest radiograph and CTA chest 10/01/2018 TECHNIQUE: Portable AP view of the chest FINDINGS: Cardiac silhouette is mildly enlarged. Left subclavian Tgiiru-t-Ryfw catheter. There is no pneumothorax, pleural effusion or overt pulmonary edema. Mild linear subsegmental atelectasis/scarring of the left midlung and lung base. Degenerative changes of the shoulders and spine. IMPRESSION: No acute process. CT angio chest PE protocol, CT abd pelvis IV con only CT DOSE: 719.94 mGy.cm HISTORY: 80 years-old Female with Peritoneal carcinomatousis, cp, sob PE. Acute chest pain with shortness of breath and abdominal pain TECHNIQUE: Multiple CTA images of the chest were obtained after the intravenous administration of 120 ml Optiray 320. Coronal and sagittal MIPS were obtained from the axial data set and were submitted for review. All measurements were obtained according to NASCET criteria. CT abdomen and pelvis with IV contrast only was also obtained. A dose lowering technique was utilized adhering to the principles of ALARA. COMPARISON: CT abdomen and pelvis 10/30/2018, CTA chest 10/01/2018. FINDINGS: CTA: Cardiomegaly. Moderate coronary artery calcifications. No thoracic aortic aneurysm. Suboptimally opacified thoracic aorta secondary to contrast bolus timing. Extensive bilateral pulmonary emboli saddle emboli with emboli within the main, bilateral lobar, segmental and subsegmental branches. Straightening of the intraventricular septum with mild dilation of the pulmonary artery. CT CHEST: Unremarkable thyroid. Mildly enlarged mediastinal lymph nodes measure up to 1.3 cm in the subcarinal distribution, increased in size from comparison. Left pectoral Bpcypk-j-Itlw catheter distal tip terminates in the inferior SVC. Trace pleural effusions. Mild subsegmental bibasilar atelectasis. No overt pulmonary edema or large pulmonary infarct. Central airways are patent. No airspace consolidation typical for pneumonia. Mild wall thickening of the distal esophagus. Unremarkable soft tissues. No acute fracture. There is decreased size of the previous noted scattered sclerotic skeletal lesions. This includes a 2 mm lesion at T1 which previously measured 4 mm. 3 mm lesion at T4 previously measured 5 mm. No new or progressive sclerotic lesions are identified. CT ABDOMEN/PELVIS: There is no pneumatosis or pneumoperitoneum. 1.3 cm hypodense splenic lesion redemonstrated. The pancreas pancreas and adrenal glands are unremarkable. Cholecystectomy. Unremarkable liver. Mixing artifact and IVC. Patency of the hepatic and portal veins. There are a few bilateral renal cysts. No hydronephrosis. Decompressed urinary bladder. Hysterectomy. Moderate mixed plaque of the abdominal aorta. Progressively worsened peritoneal carcinomatosis with progressive pathologic-appearing adenopathy throughout the abdomen and pelvis. This includes a precaval lymph nodes which measure up to 2.5 x 1.0 cm. Mesenteric lymph nodes are seen measuring up to 10 mm. Pathologic lymph nodes are also seen within the retroperitoneum and bilateral iliac chains. Mild nonspecific distal esophageal wall thickening. Scattered small bowel air- fluid levels. Moderate fecal retention. Colonic diverticulosis. Mild wall thickening with partial distention of the sigmoid. Terminal ileum and appendix are unremarkable. Unremarkable soft tissues. No acute fracture or new bone lesion. Demineralized appearance of the bones. Prior L4 laminectomy. IMPRESSION: 1. Extensive bilateral pulmonary emboli including saddle emboli with evidence of associated right heart strain. 2. Trace pleural effusions. 3. No bowel obstruction or pneumoperitoneum. 4. Moderate progression of the peritoneal carcinomatosis. This includes probable serosal implants on the large bowel. 5. Numerous new/progressed pathologic lymph nodes throughout the abdomen and pelvis which are suggestive of metastatic disease. 6. Decreased size of the skeletal sclerotic lesions suggestive of mixed treatment response. 7. Moderate fecal retention. 8. Additional findings as above. ACT 112: Negative or not required by law. The above report was generated using voice recognition software. It may contain grammatical, syntax or spelling errors. Electronically signed by: Cricket Crowley M.D. 09/07/2020 12:[address] head/brain wo con CLINICAL HISTORY: 80 years-old Female with fall, pain. Acute syncope with head trauma TECHNIQUE: Multiple axial CT images of the head were obtained without contrast. A dose lowering technique was utilized adhering to the principles of ALARA. CT DOSE: 537.48 mGy.cm COMPARISON: CTA of the head 04/30/2020 FINDINGS: No acute intracranial hemorrhage, midline shift, intracranial mass, hydro cephalus, territorial ischemia or abnormal extra-axial collection. Limited evaluation for intracranial hemorrhage secondary to recent contrast-enhanced studies. Age-related involutional changes. Mild patchy white matter hypodensities suggest chronic microvascular ischemic disease. The calvarium is intact. The paranasal sinuses, mastoid air cells, and middle ear cavities are clear. IMPRESSION: No acute intracranial abnormality. ACT 112: Negative or not required by law. -- Consultation(s): Case was discussed with Kiko Shaw PAC, with Dr. Doyle Hoover hospitalist who will evaluate the patient for admission. HPI: The patient is a pleasant 80-year-old woman with a past medical history ovarian cancer peritoneal carcinomatosis who has been undergoing treatment but in July following her treatment had decided to discontinue her chemotherapy who presents emergency department today with palpitations/increased heart rate since yesterday which evolved into chest pain and has been constant into today and so presents emergency department realizing she should have come in yesterday. She also reports feeling some increased reflux and burping though she feels this is unrelated to her pain. She denies any recent fevers, chills, cough, congestion, diarrhea, urinary symptoms. She reports she has had constipation but did move her bowels yesterday after starting Benefiber per recommendation of her PCP on Tuesday. ROS: See above HPI for pertinent positives & negatives. A total of 10 systems reviewed and were otherwise negative. PAST MEDICAL HISTORY:See Below PAST SURGICAL HISTORY:See Below FAMILY HISTORY:See Below SOCIAL HISTORY:See Below HOME MEDICATIONS:See Below ALLERGIES:See Below VITALS:See Below PHYSICAL EXAMINATION: GENERAL: Awake, alert, fatigued/uncomfortable-appearing, in no distress HENT: Normocephalic, atraumatic. Oropharynx with dry mucous membranes and oth erwise unremarkable. EYES: Normal conjunctiva. Sclera non-icteric. NECK: Supple. No nuchal rigidity. FROM. No JVD. RESPIRATORY: Clear to auscultation. CARDIAC: Tachycardic rate, normal rhythm. Extremities warm and well perfused. Pulses equal. ABDOMEN: Soft, non-distended. No tenderness to palpation. No rebound or guarding. No masses. RECTAL: Deferred. MUSCULOSKELETAL: Chest examination reveals no tenderness. The back is symmetrical on inspection without obvious abnormality. There is no CVA tend erness to palpation. No joint edema. LOWER EXTREMITIES: Calves are equal size bilaterally and non-tender. No edema. No discoloration. NEURO: Normal sensorium. No sensory or motor deficits noted. SKIN: No rash or jaundice noted. ED COURSE: Procedures: Limited Point of Care Cardiac Ultrasound performed by me: Indication: Pulmonary embolism, Dyspnea. Findings: Limited echocardiography revealed no overt pericardial fluid. RV strain with dilated RV and bowing of IVS. IVC with minimal respiratory variability. Impression: Right ventricular strain Critical Care: I have personally spent greater than 75 minutes of critical care time in the dir ect management of this patient. This includes bedside care, interpretation of diagnostic studies, and testing, discussion with consultants, patient, and family members, and other required patient management activities. This 75 minutes is in excess of all separately billable procedures. Bradley Melendrez MD Past Med/Surg History Medical History (Updated 09/08/20 @ 00:54 by Bradley Melendrez MD) Cholelithiases CKD (chronic kidney disease), stage III GERD (gastroesophageal reflux disease) Hx of Lyme disease DX DECEMBER 2017 Osteoarthritis Ovarian cancer CURRENTLY Peritoneal carcinomatosis CURRENTLY Surgical History History of arthroscopy L KNEE 04/2016 History of back surgery CYST INSIDE SPINE - BENIGN History of carpal tunnel surgery L History of colonoscopy History of laparoscopy FOR GALLBLADDER SURGERY (04/17/18) GALLBADDER SURGERY CANCELLED -- PERITONEAL TUMORS BIOSPIED AT THAT TIME. MAC 3. 7.0 ETT. Grade 2 view. No issues. History of surgical procedure on eye proper using laser PT REPORTS HAS HX OF LASER EYE SURGERY, NO ANETHESIA FOR History of tonsillectomy Hx of wisdom tooth extraction Previous back surgery S/P appendectomy Family History Father Family hx of colon cancer Mother Family hx of colon cancer Social History Smoking Status: Never smoker Second Hand Exposure: No; Hx Alcohol Use: No Hx Substance Use: No Preferred Language: Wolof Communication Ability: Effective Visual Impairment: No Limitations Network Firewall Engineer Required: No Beliefs That Will Affect Care: None marital status: Current Living Situation: Spouse current occupational status: retired Feels Safe at Home: Yes Safety Concerns: Feels Safe At This Time Assistive Devices: Glasses, Hearing Aid - Bilateral and Walker Allergies Allergies Allergy/AdvReac Type Severity Reaction Status Date / Time amoxicillin AdvReac Severe SEVERE Verified 09/07/20 10:47 STOMACH UPSET clavulanic acid AdvReac Severe SEVERE Verified 09/07/20 10:47 STOMACH UPSET naproxen AdvReac Severe Abdominal Verified 09/07/20 10:47 Pain chlorhexidine AdvReac Intermediate rash, Verified 09/07/20 10:47 itchy skin, inflammation at site Home Meds Home Medications Medication Instructions Recorded Confirmed valacyclovir [Valtrex] 500 mg PO UD 05/18/18 09/07/20 gabapentin 100 mg PO QAM 10/01/18 09/07/20 Excedrin Tension Headache 1 tab PO Q12H PRN 04/30/20 09/07/20 aspirin 81 mg PO QAM 04/30/20 09/07/20 cholecalciferol (vitamin D3) 25 mcg PO DAILY 04/30/20 09/07/20 [Vitamin D3] cyanocobalamin (vitamin B-12) 100 mcg PO DAILY 04/30/20 09/07/20 [Vitamin B-12] artificial tear([id number]) 1 drp OPHTHALMIC (EYE) 5XD PRN 09/07/20 09/07/20 [GenTeal Tears Moderate] calcium carbonate-mag hydroxid 1 tab PO DAILY 09/07/20 09/07/20 [Mylanta] gabapentin 200 mg PO HS 09/07/20 09/07/20 lactobacillus combination no.4 3,000 mmu cells PO DAILY 09/07/20 09/07/20 [Probiotic] prochlorperazine maleate 10 mg PO Q6H PRN 09/07/20 09/07/20 senna 8.6 mg PO HS 09/07/20 09/07/20 wheat dextrin [Benefiber Clear SF 1.5 g PO BID 09/07/20 09/07/20 (dextrin)] white petrolatum-mineral oil 1 applic OPHTHALMIC (EYE) 6XD PRN 09/07/20 09/07/20 Previous Rx's Medication Instructions Recorded meloxicam 15 mg tablet 15 mg PO DAILY PRN #30 tab 02/29/20 Results & Data (ED) Vital Signs Vital Signs - 24 hr 09/07/20 09:15 09/07/20 09:23 09/07/20 09:30 Temperature 36.0 C L Temperature Source Oral Pulse Rate 109 H 109 H Pulse Rate from SpO2 Sensor 110 H Respiratory Rate 20 17 Respiratory Effort / Characteristics Non-Labored Blood Pressure 98/73 L 111/67 Blood Pressure Mean 81 81 Pulse Oximetry 92 92 92 Oxygen Delivery Method Room Air Room Air Room Air Sepsis Recent Fever Within 48 Hours No Sepsis New/Unexplained Change in Mental Status N/A Sepsis Action Taken by Nursing No Action Required 09/07/20 10:00 09/07/20 10:30 09/07/20 10:31 Temperature Temperature Source Pulse Rate 110 H 109 H 109 H Pulse Rate from SpO2 Sensor 110 H 109 H 110 H Respiratory Rate 17 17 18 Respiratory Effort / Characteristics Blood Pressure 100/74 102/75 Blood Pressure Mean 82 84 Pulse Oximetry 94 93 93 Oxygen Delivery Method Room Air Sepsis Recent Fever Within 48 Hours Sepsis New/Unexplained Change in Mental Status Sepsis Action Taken by Nursing 09/07/20 11:00 09/07/20 11:01 09/07/20 11:47 Temperature Temperature Source Pulse Rate 103 H 102 H 97 H Pulse Rate from SpO2 Sensor 103 H 102 H Respiratory Rate 16 17 18 Respiratory Effort / Characteristics Blood Pressure 103/73 Blood Pressure Mean 83 Pulse Oximetry 92 92 Oxygen Delivery Method Sepsis Recent Fever Within 48 Hours Sepsis New/Unexplained Change in Mental Status Sepsis Action Taken by Nursing 09/07/20 12:09 09/07/20 12:30 09/07/20 12:31 Temperature Temperature Source Pulse Rate 97 H 99 H 96 H Pulse Rate from SpO2 Sensor 97 H 99 H 96 H Respiratory Rate 18 19 16 Respiratory Effort / Characteristics Blood Pressure 100/66 95/67 L Blood Pressure Mean 77 76 Pulse Oximetry 86 L 95 95 Oxygen Delivery Method Sepsis Recent Fever Within 48 Hours Sepsis New/Unexplained Change in Mental Status Sepsis Action Taken by Nursing 09/07/20 13:00 09/07/20 13:01 09/07/20 13:30 Temperature Temperature Source Pulse Rate 95 H 97 H 96 H Pulse Rate from SpO2 Sensor 95 H 97 H 96 H Respiratory Rate 18 28 H 16 Respiratory Effort / Characteristics Blood Pressure 101/72 104/76 Blood Pressure Mean 81 85 Pulse Oximetry 95 94 95 Oxygen Delivery Method Sepsis Recent Fever Within 48 Hours Sepsis New/Unexplained Change in Mental Status Sepsis Action Taken by Nursing 09/07/20 13:31 Temperature Temperature Source Pulse Rate 92 H Pulse Rate from SpO2 Sensor 93 H Respiratory Rate 16 Respiratory Effort / Characteristics Blood Pressure Blood Pressure Mean Pulse Oximetry 95 Oxygen Delivery Method Sepsis Recent Fever Within 48 Hours Sepsis New/Unexplained Change in Mental Status Sepsis Action Taken by Nursing Laboratory Data Attestation: I reviewed the patient's lab results. Result diagrams: 09/07/20 09:20 09/07/20 09:20 Lab Results 09/07/20 09/07/20 09/07/20 Range/Units 09:20 09:20 09:20 WBC 9.52 (4.8-10.8) K/uL RBC 4.15 L (4.2-5.4) M/uL Hgb 12.2 (12.0-16.0) g/dL Hct 37.9 (37-47) % MCV 91.3 (80-100) fL MCH 29.4 (25-34) pg MCHC 32.2 (32-36) g/dL RDW Std Deviation 57.0 H (36.4-46.3) fL RDW Coeff of Maile 17.1 H (11.5-14.5) % Plt Count 151 (130-400) K/uL MPV 9.9 (7.4-10.4) fL Immature Gran % (Auto) 0.4 % Neut % (Auto) 80.5 % Lymph % (Auto) 7.1 % Ada % (Auto) 10.0 % Eos % (Auto) 1.9 % Baso % (Auto) 0.1 % Neut # (Auto) 7.66 H (1.4-6.5) K/uL Lymph # (Auto) 0.68 L (1.2-3.4) K/uL Ada # (Auto) 0.95 H (0.11-0.59) K/uL Eos # (Auto) 0.18 (0-0.5) K/uL Baso # (Auto) 0.01 (0-0.2) K/uL Immature Gran # (Auto) 0.04 H (0.00-0.02) K/uL PT 9.9 (9.0-12.0) Seconds INR 1.0 (0.9-1.1) Sodium 140 (136-145) mmol/L Potassium 4.4 (3.5-5.1) mmol/L Chloride 108 H (98-107) mmol/L Carbon Dioxide 24 (21-32) mmol/L Anion Gap 8.0 (3-11) BUN 23 H (7-18) mg/dl Creatinine 1.14 (0.6-1.2) mg/dl Est Cr Clr Drug Dosing 41.4 ml/min Est GFR ( Amer) 53.3 Est GFR (Non-Af Amer) 46.0 BUN/Creatinine Ratio 20.3 H (10-20) Glucose 172 H (70-99) mg/dl Calcium 8.9 (8.5-10.1) mg/dl Phosphorus 3.0 (2.5-4.9) mg/dl Magnesium 2.3 (1.8-2.4) mg/dl Total Bilirubin 1.0 (0.2-1) mg/dl Direct Bilirubin 0.2 (0-0.2) mg/dl AST 26 (15-37) U/L ALT 41 (12-78) U/L Alkaline Phosphatase 132 H (45-117) U/L Troponin I 0.180 H* (0-0.045) ng/ml NT-Pro-B Natriuret Pep 1594 (0-1800) pg/ml Total Protein 7.4 (6.4-8.2) gm/dl Albumin 2.7 L (3.4-5.0) gm/dl Globulin 4.7 H (2.5-4.0) gm/dl Albumin/Globulin Ratio 0.6 L (0.9-2) Lipase 126 (73-393) U/L TSH 2.640 (0.300-4.500) uIu/ml Administered Medications Enoxaparin Sodium (Enoxaparin 80 Mg/0.8 Ml Syr) 80 mg SQ Q12H SUZIE Stop: 10/07/20 20:59 Last Admin: 09/07/20 20:48 Dose: 80 mg Documented by: [id number] Gabapentin (Gabapentin 100 Mg Cap) 200 mg PO HS SUZIE Stop: 10/07/20 20:59 Last Admin: 09/07/20 20:48 Dose: 200 mg Documented by: [id number] Sodium Chloride (Nss 1000ml) 1,000 mls @ 80 mls/hr IV .[id number] SUZIE Stop: 09/08/20 02:44 Last Admin: 09/07/20 14:31 Dose: 80 mls/hr Documented by: [id number] Sennosides (Senna 8.6 Mg Tab) 17.2 mg PO HS SUZIE Stop: 10/07/20 20:59 Last Admin: 09/07/20 20:48 Dose: 17.2 mg Documented by: [id number] Discontinued Medications Heparin Sodium (Porcine) (Heparin Bolus Ed Use Only) 5,000 units IV NOW STA Stop: 09/07/20 12:45 Last Admin: 09/07/20 13:07 Dose: 5,000 units Documented by: [id number] Cosigned by: [id number] Heparin Sodium/Dextrose (Heparin Iv Standard With Bolus) 1 ea IV NOW STA; Protocol Stop: 09/07/20 12:36 Last Admin: 09/07/20 13:09 Dose: 1 ea Documented by: [id number] Sodium Chloride (Nss 1000ml) 1,000 mls @ 999 mls/hr IV .Q1H1M ONE Stop: 09/07/20 10:50 Last Infusion: 09/07/20 11:04 Dose: 0 mls/hr Documented by: [id number] Admin: 09/07/20 09:59 Dose: 999 mls/hr Documented by: [id number] Acetaminophen (Ofirmev) 1,000 mg in 100 mls @ 400 mls/hr IV NOW STA Stop: 09/07/20 10:04 Last Infusion: 09/07/20 10:13 Dose: 0 mls/hr Documented by: [id number] Admin: 09/07/20 09:58 Dose: 400 mls/hr Documented by: [id number] Famotidine (Pepcid 20mg Iv Push) 20 mg in 5 mls @ 2.5 mls/min IV NOW STA Stop: 09/07/20 09:52 Last Admin: 09/07/20 09:58 Dose: 2.5 mls/min Documented by: [id number] Sodium Chloride (Nss 1000ml) 1,000 mls @ 999 mls/hr IV .Q1H1M ONE Stop: 09/07/20 13:17 Last Infusion: 09/07/20 13:40 Dose: 0 mls/hr Documented by: [id number] Admin: 09/07/20 12:34 Dose: 999 mls/hr Documented by: [id number] Heparin Sodium/Dextrose (Heparin Sodium/Dextrose) 25,000 units in 500 mls @ 23 mls/hr IV .[id number] COUNT INCLUDES THE [facility]; Protocol Stop: 09/07/20 19:00 Last Titration: 09/07/20 19:26 Dose: 0 units/hr, 0 mls/hr Documented by: [id number] Cosigned by: [id number] Admin: 09/07/20 13:07 Dose: 1,150 units/hr, 23 mls/hr Documented by: [id number] Cosigned by: [id number] Ioversol (Optiray 320 125ml) 120 ml IV ONCE ONE Stop: 09/07/20 11:46 Last Admin: 09/07/20 11:45 Dose: 120 ml Documented by: [id number] Metoclopramide HCl (Metoclopramide Hcl Inj 5 Mg/Ml 2 Ml Vial) 10 mg IV NOW STA Stop: 09/07/20 09:51 Last Admin: 09/07/20 09:59 Dose: 10 mg Documented by: [id number] Miscellaneous (*Heparin Infusion*Stop Order) 1 ea N/A 1900 ONE Stop: 09/07/20 19:01 Last Admin: 09/07/20 19:22 Dose: 1 ea Documented by: [id number] Discharge Plan Visit Data Chief Complaint: Cardiac Assessment ED Provider: Bradley Melendrez Discharge Problem: Bilateral pulmonary embolism, Elevated troponin, Metastatic disease, Hypoxia Patient Disposition: Admitted As Inpatient Discharge Instructions Interventions: ED Discharge Assessment Last Done: 09/07/20 15:56 Discharge Problem: Metastatic disease Qualifiers: Area of secondary neoplastic involvement: unspecified site Qualified Code(s): C79.9 - Secondary malignant neoplasm of unspecified site
--- NOTE | 2020-09-07 10:21 | XRay Report ---
XR chest 1V portable HISTORY: 80 years-old Female Chest Pain acute atypical chest pain COMPARISON: Chest radiograph and CTA chest 10/01/2018 TECHNIQUE: Portable AP view of the chest FINDINGS: Cardiac silhouette is mildly enlarged. Left subclavian Bvsukf-h-Jeog catheter. There is no pneumothor ax, pleural effusion or overt pulmonary edema. Mild linear subsegmental atelectasis/scarring of the l eft midlung and lung base. Degenerative changes of the shoulders and spine. IMPRESSION: No acute process. ACT 112: Negative or not required by law. The above report was generated using voice recognition software. It may contain grammatical, syntax o r spelling errors. Electronically signed by: Cricket Crowley M.D. 09/07/2020 10:20 AM
[2020-09-07 10:39] LABS: Basophils # (auto) 0.01 K/uL (0-0.2); Basophils % (auto) 0.1 %; Eosinophils # (auto) 0.18 K/uL (0-0.5); Eosinophils % (auto) 1.9 %; Hematocrit (blood only) 37.9 % (37-47); Hemoglobin 12.2 g/dL (12.0-16.0); Immature Granulocytes # (auto) 0.04 K/uL (0.00-0.02); Immature Granulocytes % (auto) 0.4 %; Lymphocytes # (auto) 0.68 K/uL (1.2-3.4); Lymphocytes % (auto) 7.1 %; Mean Corpuscular Hemoglobin 29.4 pg (25-34); Mean Corpuscular Hgb Conc 32.2 g/dL (32-36); Mean Corpuscular Volume 91.3 fL (80-100); Mean Platelet Volume 9.9 fL (7.4-10.4); Monocytes # (auto) 0.95 K/uL (0.11-0.59); Neutrophils # (auto) 7.66 K/uL (1.4-6.5); Neutrophils % (auto) 80.5 %; Platelet Count 151 K/uL (130-400); RDW Coefficient of Variation 17.1 % (11.5-14.5); Red Blood Count 4.15 M/uL (4.2-5.4); White Blood Count 9.52 K/uL (4.8-10.8)
[2020-09-07 10:47] LABS: Albumin Level 2.7 gm/dl (3.4-5.0); BUN Creatinine Ratio 20.3 (10-20); Bilirubin Direct 0.2 mg/dl (0-0.2); Calcium 8.9 mg/dl (8.5-10.1); Creatinine Clr Calc Pharmacy 41.4 ml/min; Est GFR (African American) 53.3; Magnesium 2.3 mg/dl (1.8-2.4); Potassium 4.4 mmol/L (3.5-5.1); Prothrombin Time 9.9 Seconds (9.0-12.0)
[2020-09-07 11:00] LABS: Albumin Globulin Ratio 0.6 (0.9-2); Globulin 4.7 gm/dl (2.5-4.0); Thyroid Stimulating Hormone 2.64 uIu/ml (0.300-4.500); Total Protein 7.4 gm/dl (6.4-8.2); Troponin I 0.18 ng/ml (0-0.045)
[2020-09-07] MEDS ORDERED: OPTIRAY 320 125ml IV ONE (11:45)
--- NOTE | 2020-09-07 11:48 | Electrocardiogram Report ---
Test Reason : Blood Pressure : / mmHG Vent. Rate : 115 BPM Atrial Rate : 115 BPM P-R Int : 130 ms QRS Dur : 112 ms QT Int : 348 ms P-R-T Axes : 007 -02 -34 degrees QTc Int : 481 ms Sinus tachycardia Incomplete right bundle branch block Inferior infarct , age undetermined Anterior infarct , age undetermined Abnormal ECG When compared with ECG of 01-MAY-2020 06:47, Vent. rate has increased BY 52 BPM Incomplete right bundle branch block is now Present Inferior infarct is now Present Confirmed by Chase Mann ([id number]) on 09/07/2020 11:47:27 AM Referred By: Confirmed By:Chase Mann
--- NOTE | 2020-09-07 12:22 | CT Scan Report ---
CT angio chest PE protocol, CT abd pelvis IV con only CT DOSE: 719.94 mGy.cm HISTORY: 80 years-old Female with Peritoneal carcinomatousis, cp, sob PE. Acute chest pain with ladarius rtness of breath and abdominal pain TECHNIQUE: Multiple CTA images of the chest were obtained after the intravenous administration of 120 ml Optiray 320. Coronal and sagittal MIPS were obtained from the axial data set and were submitted for review. All measurements were obtained according to NASCET criteria. CT abdomen and pelvis with IV contrast only was also obtained. A dose lowering technique was utilized adhering to the principles of ALARA. COMPARISON: CT abdomen and pelvis 10/30/2018, CTA chest 10/01/2018. FINDINGS: CTA: Cardiomegaly. Moderate coronary artery calcifications. No thoracic aortic aneurysm. Suboptimally opac ified thoracic aorta secondary to contrast bolus timing. Extensive bilateral pulmonary emboli saddle emboli with emboli within the main, bilateral lobar, segmental and subsegmental branches. Straighteni ng of the intraventricular septum with mild dilation of the pulmonary artery. CT CHEST: Unremarkable thyroid. Mildly enlarged mediastinal lymph nodes measure up to 1.3 cm in the subcarinal distribution, increased in size from comparison. Left pectoral Lqglxo-k-Clbd catheter distal tip term inates in the inferior SVC. Trace pleural effusions. Mild subsegmental bibasilar atelectasis. No overt pulmonary edema or large p ulmonary infarct. Central airways are patent. No airspace consolidation typical for pneumonia. Mild w all thickening of the distal esophagus. Unremarkable soft tissues. No acute fracture. There is decrea sed size of the previous noted scattered sclerotic skeletal lesions. This includes a 2 mm lesion at T 1 which previously measured 4 mm. 3 mm lesion at T4 previously measured 5 mm. No new or progressive s clerotic lesions are identified. CT ABDOMEN/PELVIS: There is no pneumatosis or pneumoperitoneum. 1.3 cm hypodense splenic lesion redemonstrated. The panc reas pancreas and adrenal glands are unremarkable. Cholecystectomy. Unremarkable liver. Mixing artifa ct and IVC. Patency of the hepatic and portal veins. There are a few bilateral renal cysts. No hydron ephrosis. Decompressed urinary bladder. Hysterectomy. Moderate mixed plaque of the abdominal aorta. P rogressively worsened peritoneal carcinomatosis with progressive pathologic-appearing adenopathy thro ughout the abdomen and pelvis. This includes a precaval lymph nodes which measure up to 2.5 x 1.0 cm. Mesenteric lymph nodes are seen measuring up to 10 mm. Pathologic lymph nodes are also seen within t he retroperitoneum and bilateral iliac chains. Mild nonspecific distal esophageal wall thickening. Scattered small bowel air-fluid levels. Moderate fecal retention. Colonic diverticulosis. Mild wall thickening with partial distention of the sigmoid. Terminal ileum and appendix are unremarkable. Unremarkable soft tissues. No acute fracture or new pattie ne lesion. Demineralized appearance of the bones. Prior L4 laminectomy. IMPRESSION: 1. Extensive bilateral pulmonary emboli including saddle emboli with evidence of associated right hea rt strain. 2. Trace pleural effusions. 3. No bowel obstruction or pneumoperitoneum. 4. Moderate progression of the peritoneal carcinomatosis. This includes probable serosal implants on the large bowel. 5. Numerous new/progressed pathologic lymph nodes throughout the abdomen and pelvis which are suggest pawel of metastatic disease. 6. Decreased size of the skeletal sclerotic lesions suggestive of mixed treatment response. 7. Moderate fecal retention. 8. Additional findings as above. ACT 112: Negative or not required by law. The above report was generated using voice recognition software. It may contain grammatical, syntax o r spelling errors. Electronically signed by: Cricket Crowley M.D. 09/07/2020 12:21 PM
--- NOTE | 2020-09-07 12:24 | CT Scan Report ---
CT head/brain wo con CLINICAL HISTORY: 80 years-old Female with fall, pain. Acute syncope with head trauma TECHNIQUE: Multiple axial CT images of the head were obtained without contrast. A dose lowering tech nique was utilized adhering to the principles of ALARA. CT DOSE: 537.48 mGy.cm COMPARISON: CTA of the head 04/30/2020 FINDINGS: No acute intracranial hemorrhage, midline shift, intracranial mass, hydrocephalus, territorial ischem ia or abnormal extra-axial collection. Limited evaluation for intracranial hemorrhage secondary to re cent contrast-enhanced studies. Age-related involutional changes. Mild patchy white matter hypodensit ies suggest chronic microvascular ischemic disease. The calvarium is intact. The paranasal sinuses, mastoid air cells, and middle ear cavities are clear . IMPRESSION: No acute intracranial abnormality. ACT 112: Negative or not required by law. The above report was generated using voice recognition software. It may contain grammatical, syntax o r spelling errors. Electronically signed by: Cricket Crowley M.D. 09/07/2020 12:23 PM
[2020-09-07] MEDS ORDERED: Heparin BOLUS **ED Use Only IV STA (12:44)
[2020-09-07] MEDS ORDERED: HEPARIN SODIUM/DEXTROSE 25,000 UNITS/500 ML BAG IV SCH (12:45)
--- NOTE | 2020-09-07 13:46 | History & Physical Report ---
Date of Service September 07, 2020 Assessment & Plan (1) Bilateral pulmonary embolism: This is a 80yo F with a PMH of metastatic ovarian cancer with peritoneal carcinomatosis (s/p total abdominal hysterectomy and bilateral salpingo- oophorectomy and omentectomy, chemo through Jul 2020), CKD III, history of migraines and other medical problems listed below who presents with dyspnea on exertion and chest pressure since yesterday and was found to have bilateral pulmonary emboli. Dyspnea on exertion and palpitations since yesterday Chest CTA with extensive bilateral pulmonary emboli including saddle emboli with evidence of associated right heart strain In setting of metastatic ovarian cancer that is not being treated currently Hemodynamically stable with improved BP to 105/70 2 L NSS, oxygen saturation 97% on room air Started on IV heparin in ED. Will transition to therapeutic dose SQ Lovenox 80 mg BID starting this evening at 2100 - will discontinue IV heparin drip at 1900 TTE to evaluate for right heart strain, trend troponin, supplemental oxygen as needed, pain control Patient not interested in invasive measures like thrombectomy beyond anticoagulation. Will continue to follow with palliative care upon discharge (2) Elevated troponin: 2/2 demand in setting of saddle emboli. EKG with evidence of prior infarcts but no acute changes. Trend troponin (3) Syncopal episodes: Event this morning and again when in ED In setting of extensive bilateral pulmonary emboli including saddle emboli, also component of dehydration, vasovagal response in bathroom Fluid resuscitated with 2 L NSS, continue gentle 80ml NSS x 1 L Fall precautions, telemetry, supplemental O2 as needed (4) Peritoneal carcinomatosis: (5) Ovarian cancer: S/p total abdominal hysterectomy and bilateral salpingo-oophorectomy and omentectomy, chemo through Jul [address] Treadwell. Stopped chemo treatment in Jul 2020 in an effort to improve quality of life. Understands prognosis, follows with [facility] palliative care as OP (6) CKD (chronic kidney disease), stage III: Kidney function at baseline. Continue to monitor daily BMP (7) Constipation: Ongoing constipation. Takes senna and fiber at home. Had large bowel movement since arrival. Will continue home regimen and increase if needed DVT Ppx: IV heparin, transitioning to therapeutic SQ lovenox Code status: DNR PCP: Puja Dispo: Admitted to [facility]. Discharge planning ordered. Patient seen in collaboration with Dr. Kwon. Please see addendum. History of Present Illness Chief Complaint: palpitations, syncopal episide at home Primary Care Provider: Anitra Luo MD This is a 80yo F with a PMH of metastatic ovarian cancer with peritoneal carcinomatosis (s/p total abdominal hysterectomy and bilateral salpingo- oophorectomy and omentectomy, chemo through Jul 2020), CKD III, history of migraines and other medical problems listed below who presents with dyspnea on exertion and chest pressure since yesterday. Started to have palpitations yest erday when climbing stairs. Developed left sided chest pain and dyspnea on exertion yesterday as well. This morning felt lightheaded and had syncopal episode. Came to ED for further evaluation. Ambulated to restroom and had another syncopal episode after having a bowel movement. Denies any fever chills. No headache. No wheezing, nausea, vomiting, abdominal pain or dysuria. Chronic constipation. Follows with Dr. Treadwell of [facility] heme/onc and decided to discuss continue chemotherapy as of July 2020 in an effort to improve quality of life. Follows with [facility] palliative care. In ED, patient noted to be hypotensive with BP 90s/70s and tachycardic at 110. Is saturating at 98% on room air. Troponin elevated at 0.180. Covid negative. Chest CTA with extensive bilateral pulmonary emboli including saddle emboli with evidence of associated right heart strain. Trace pleural effusions. No bowel obstruction or pneumoperitoneum. Moderate progression of the peritoneal carcinomatosis. This includes probable serosal implants on the large bowel. Numerous new/progressed pathologic lymph nodes throughout the abdomen and pelvis which are suggestive of metastatic disease. Allergies Allergy/AdvReac Type Severity Reaction Status Date / Time amoxicillin AdvReac Severe SEVERE Verified 09/07/20 10:47 STOMACH UPSET clavulanic acid AdvReac Severe SEVERE Verified 09/07/20 10:47 STOMACH UPSET naproxen AdvReac Severe Abdominal Verified 09/07/20 10:47 Pain chlorhexidine AdvReac Intermediate rash, Verified 09/07/20 10:47 itchy skin, inflammation at site Home Medications Medication Instructions Recorded Confirmed Type valacyclovir [Valtrex] 500 mg PO UD 05/18/18 09/07/20 History gabapentin 100 mg PO QAM 10/01/18 09/07/20 History meloxicam 15 mg tablet 15 mg PO DAILY PRN #30 tab 02/29/20 09/07/20 Rx Excedrin Tension Headache 1 tab PO Q12H PRN 04/30/20 09/07/20 History aspirin 81 mg PO QAM 04/30/20 09/07/20 History cholecalciferol (vitamin D3) 25 mcg PO DAILY 04/30/20 09/07/20 History [Vitamin D3] cyanocobalamin (vitamin B-12) 100 mcg PO DAILY 04/30/20 09/07/20 History [Vitamin B-12] artificial tear([id number]) 1 drp OPHTHALMIC (EYE) 5XD PRN 09/07/20 09/07/20 History [GenTeal Tears Moderate] calcium carbonate-mag hydroxid 1 tab PO DAILY 09/07/20 09/07/20 History [Mylanta] gabapentin 200 mg PO HS 09/07/20 09/07/20 History lactobacillus combination no.4 3,000 mmu cells PO DAILY 09/07/20 09/07/20 History [Probiotic] prochlorperazine maleate 10 mg PO Q6H PRN 09/07/20 09/07/20 History senna 8.6 mg PO HS 09/07/20 09/07/20 History wheat dextrin [Benefiber Clear SF 1.5 g PO BID 09/07/20 09/07/20 History (dextrin)] white petrolatum-mineral oil 1 applic OPHTHALMIC (EYE) 6XD PRN 09/07/20 09/07/20 History Past Med/Surg History Medical History (Updated 09/08/20 @ 00:54 by Bradley Melendrez MD) Cholelithiases CKD (chronic kidney disease), stage III GERD (gastroesophageal reflux disease) Hx of Lyme disease DX DECEMBER 2017 Osteoarthritis Ovarian cancer CURRENTLY Peritoneal carcinomatosis CURRENTLY Surgical History History of arthroscopy L KNEE 04/2016 History of back surgery CYST INSIDE SPINE - BENIGN History of carpal tunnel surgery L History of colonoscopy History of laparoscopy FOR GALLBLADDER SURGERY (04/17/18) GALLBADDER SURGERY CANCELLED -- PERITONEAL TUMORS BIOSPIED AT THAT TIME. MAC 3. 7.0 ETT. Grade 2 view. No issues. History of surgical procedure on eye proper using laser PT REPORTS HAS HX OF LASER EYE SURGERY, NO ANETHESIA FOR History of tonsillectomy Hx of wisdom tooth extraction Previous back surgery S/P appendectomy Family History Father Family hx of colon cancer Mother Family hx of colon cancer Social History Smoking Status: Never smoker Second Hand Exposure: No; Hx Alcohol Use: No Hx Substance Use: No Preferred Language: Bengali Communication Ability: Effective Visual Impairment: No Limitations Team Leader Surgery Required: No Beliefs That Will Affect Care: None marital status: Current Living Situation: Spouse current occupational status: retired Feels Safe at Home: Yes Safety Concerns: Feels Safe At This Time Assistive Devices: Glasses, Hearing Aid - Bilateral and Walker Review of Systems Review of Systems: At least ten systems reviewed and negative except as noted in the HPI. Physical Exam Physical Exam: General Appearance: vitals as above, NAD, appears chronically ill, pleasant, conversing easily Head: normocephalic, atraumatic Eyes: normal inspection, PERRL, conjunctivae normal, anicteric sclerae ENT: external ear and nose normal, oropharynx normal Neck: normal visual inspection, trachea midline, no thyromegaly Respiratory: normal respiratory effort, lungs clear to auscultation, no wheeze, rales, rhonchi. No accessory muscle use Cardiovascular: tachycardic rate, regular rhythm, no murmur appreciated, normal peripheral pulses, no BLE edema. Vessels: no JVD Chest: normal inspection of chest Abdomen/GI: normal bowel sounds, soft, nontender, no hepatosplenomegaly Extremities/Musculoskeletal: no cyanosis or clubbing, extremities motor strength 5/5 Neurologic: PERRL, EOMI, accommodation nl, no face palsy, no dysarthria, CN's II-XI intact bilaterally and moves all extremities Psychiatric: A+Ox3, euthymic affect Skin: no rashes, normal color, warm/dry Results & Data Results & Data ([facility]) Vital Signs (Past 12 Hours) Vital Signs Temp Pulse Resp BP Pulse Ox 09/07/20 13:01 97 H 28 H 94 09/07/20 13:00 95 H 18 101/72 95 09/07/20 12:31 96 H 16 95 09/07/20 12:30 99 H 19 95/67 L 95 09/07/20 12:09 97 H 18 100/66 86 L 09/07/20 11:47 97 H 18 09/07/20 11:01 102 H 17 92 09/07/20 11:00 103 H 16 103/73 92 09/07/20 10:31 109 H 18 93 09/07/20 10:30 109 H 17 102/75 93 09/07/20 10:00 110 H 17 100/74 94 09/07/20 09:30 109 H 17 111/67 92 09/07/20 09:23 92 09/07/20 09:15 36.0 C L 109 H 20 98/73 L 92 Laboratory Results Short CBC 09/07/20 Range/Units 09:20 WBC 9.52 (4.8-10.8) K/uL Hgb 12.2 (12.0-16.0) g/dL Hct 37.9 (37-47) % Plt Count 151 (130-400) K/uL BMP 09/07/20 09:20 Sodium 140 Potassium 4.4 Chloride 108 H Carbon Dioxide 24 BUN 23 H Creatinine 1.14 Glucose 172 H Calcium 8.9 Cardiac Enzymes 09/07/20 Range/Units 09:20 Troponin I 0.180 H* (0-0.045) ng/ml Liver Function 09/07/20 Range/Units 09:20 Total Bilirubin 1.0 (0.2-1) mg/dl Direct Bilirubin 0.2 (0-0.2) mg/dl AST 26 (15-37) U/L ALT 41 (12-78) U/L Alkaline Phosphatase 132 H (45-117) U/L Albumin 2.7 L (3.4-5.0) gm/dl Diagnostic Findings Head CT: IMPRESSION: No acute intracranial abnormality. CXR: IMPRESSION: No acute process. Chest CTA: IMPRESSION: 1. Extensive bilateral pulmonary emboli including saddle emboli with evidence of associated right heart strain. 2. Trace pleural effusions. 3. No bowel obstruction or pneumoperitoneum. 4. Moderate progression of the peritoneal carcinomatosis. This includes probable serosal implants on the large bowel. 5. Numerous new/progressed pathologic lymph nodes throughout the abdomen and pelvis which are suggestive of metastatic disease. 6. Decreased size of the skeletal sclerotic lesions suggestive of mixed treatment response. 7. Moderate fecal retention. 8. Additional findings as above. CT abd/pelvis: IMPRESSION: 1. Extensive bilateral pulmonary emboli including saddle emboli with evidence of associated right heart strain. 2. Trace pleural effusions. 3. No bowel obstruction or pneumoperitoneum. 4. Moderate progression of the peritoneal carcinomatosis. This includes probable serosal implants on the large bowel. 5. Numerous new/progressed pathologic lymph nodes throughout the abdomen and pelvis which are suggestive of metastatic disease. 6. Decreased size of the skeletal sclerotic lesions suggestive of mixed treatment response. 7. Moderate fecal retention. 8. Additional findings as above Code Status & VTE Plan VTE Prophylaxis Plan VTE Prophylaxis will be ordered: Yes Supervising Physician Co-Signing Physician Notes Attending addendum : pt seen and examined, care co ordinated with Vicki ORNELAS 80 yo F with metastatic ovarian ca , admitted with chest pain /SOB /syncope CTA of chest shows large saddle PE with evidence of rt heart strain - was briefly hypotensive in ER responded to IV fluid bolus was started on IV heparin wt based dose in ER will change to therapeutic Lovenox dose -recommended anticoagulation for thromboembolism associated with malignancy . pt will need life long anticoagulation with Therapeutic Lovenox lower ext Doppler ordered for DVT resting ECHO for rt heart strain /Rt heart failure . pt is not hypoxic remains in room air has minimum pleuritic chest pain code status ; DNR/DNI plan of care discussed with pt in detail in agreement with treatment plan , all questions answered please refer to further documentation by Vicki Ornelas for discussion of ot her medical issues Sally Kwon MD
[2020-09-07] MEDS ORDERED: SODIUM CHLORIDE 0.9% 1000ML 1,000 ML IV SCH (14:15)
[2020-09-07] MEDS ORDERED: SOD PHOSPHATE/SOD BIPHOSPHATE ENEMA 132 ML BTL PR PRN (14:19)
[2020-09-07] MEDS ORDERED: NON-FORMULARY MEDICATION (Acetaminophen-Caffeine [Excedrin Tension Headache] 500-65 mg Tab PO PRN (14:44)
[2020-09-07] MEDS ORDERED: WHITE PETROLATUM MINERAL OIL OP PRN (14:44)
[2020-09-07] MEDS ORDERED: MELOXICAM 7.5 MG TAB PO PRN (14:44)
[2020-09-07] MEDS ORDERED: oxyCODONE HCL IR 5 MG TAB (IMMEDIATE RELEASE) PO PRN (14:45)
[2020-09-07] MEDS ORDERED: ARTIFICIAL TEARS OP PRN (14:57)
[2020-09-07] MEDS ORDERED: ONDANSETRON INJ 2 MG/ML 2 ML VIAL IV PRN (17:20)
[2020-09-07] MEDS ORDERED: POLYETHYLENE (MIRALAX) 17 GM PACK PO PRN (17:20)
[2020-09-07] MEDS ORDERED: *HEPARIN INFUSION*STOP ORDER ONE (19:00)
[2020-09-07] MEDS: SENNA 8.6 MG TAB PO SCH (20:48)
[2020-09-07] MEDS: ENOXAPARIN 80 MG/0.8 ML SYR SQ SCH (20:48)
[2020-09-07] MEDS: GABAPENTIN 100 MG CAP PO SCH (20:48)
[2020-09-08 06:40] LABS: Hematocrit (blood only) 37.6 % (37-47); Hemoglobin 11.6 g/dL (12.0-16.0); Mean Corpuscular Hemoglobin 28.4 pg (25-34); Mean Corpuscular Hgb Conc 30.9 g/dL (32-36); Mean Corpuscular Volume 91.9 fL (80-100); Mean Platelet Volume 9.9 fL (7.4-10.4); Platelet Count 126 K/uL (130-400); RDW Coefficient of Variation 17.1 % (11.5-14.5); Red Blood Count 4.09 M/uL (4.2-5.4); White Blood Count 8.46 K/uL (4.8-10.8)
[2020-09-08 06:48] LABS: Appearance Urine Cloudy (Clear); Bilirubin Urine Negative (Negative); Blood Urine Trace (Negative); Color Urine Yellow; Epithelial Cell Urine Auto >30 /lpf (0-5); Glucose Urine UA Negative (Negative); Ketones Urine Negative (Negative); Leukocyte Esterase Urine 1+ (Negative); Nitrite Urine Negative (Negative); Protein Urine Trace (Negative); Specific Gravity Urine 1.034 (1.000-1.030); Urobilinogen Urine Negative (Negative); WBC Urine Automated >30 /hpf (0-5); pH Urine 5.5 (4.5-7.5)
[2020-09-08 07:16] LABS: BUN Creatinine Ratio 17.3 (10-20); Calcium 8.9 mg/dl (8.5-10.1); Creatinine Clr Calc Pharmacy 45.8 ml/min; Est GFR (African American) 60.3; Potassium 5.1 mmol/L (3.5-5.1)
[2020-09-08 07:17] LABS: Bacteria Urine Automated 1+ (Negative); RBC Urine Automated 0-4 /hpf (0-4)
[2020-09-08] MEDS: CALCIUM 600MG + VIT D 400 IU TAB PO SCH ×2 (09:57→10:00)
[2020-09-08] MEDS: CYANOCOBALAMIN 500 MCG TABLET (VITAMIN B-12) PO SCH (09:57)
[2020-09-08] MEDS: CHOLECALCIFEROL 1,000 UNITS 25 MCG TAB PO SCH (09:57)
[2020-09-08] MEDS: ADVANCED PROBIOTIC 1250 MG CAPSULE PO SCH (09:57)
[2020-09-08] MEDS: ASPIRIN 81 MG ECTAB PO SCH (09:57)
[2020-09-08] MEDS: ENOXAPARIN 80 MG/0.8 ML SYR SQ SCH ×2 (09:57→21:15)
[2020-09-08] MEDS: GABAPENTIN 100 MG CAP PO SCH ×2 (09:57→21:18)
[2020-09-08] MEDS: ACETAMINOPHEN 500 MG TAB PO PRN (10:01)
--- NOTE | 2020-09-08 15:45 | Hospitalist Progress Note ---
Date of Service September 08, 2020 Assessment & Plan (1) Bilateral pulmonary embolism: This is a 80yo F with a PMH of metastatic ovarian cancer with peritoneal carcinomatosis (s/p total abdominal hysterectomy and bilateral salpingo- oophorectomy and omentectomy, chemo through Jul 2020), CKD III, history of migraines and other medical problems listed below who presents with dyspnea on exertion and chest pressure since yesterday and was found to have bilateral pulmonary emboli. Saddle embolus of pulmonary artery with acute cor pulmonale CTA revealed Extensive bilateral pulmonary emboli including saddle emboli with evidence of associated right heart strain. BNP 1594, trops 0.180/0.852. H hypotensive with BP 98/73, tachycardia with HR 109. CXR without acute findings on therapeutic dose SQ Lovenox 80 mg BID Metastatic ovarian Ca with peritoneal carcinomatosis : [facility] venous thromboembolism associated with malignancy high risk for recurrence of anticoagulation will need senior care anticoagulation /pt is comfortable on self administration of Lovenox SC (2) Elevated troponin: demand ischemia/cardiac strain due to acute saddle PE : Trops: 0.180/0.160/0.852, HR 92-110, cont anticoagulation with Lovenox as outlined above Acute hypoxemic resp failure O2 sat dropped to 86% on RA, due to above on 2 L 02 , will need 2 step exercise to asses home 02 needs Hypotension : due to saddle emboli/rt heart failure BP improved with IV fluids , monitor in tele (3) Syncopal episodes: Event this morning and again when in ED In setting of extensive bilateral pulmonary emboli including saddle emboli, also component of dehydration, vasovagal response in bathroom while straining to have BM no further episode since admission able to walk in room , no complain of dizzy spell or lightheadedness (4) Peritoneal carcinomatosis: (5) Ovarian cancer: S/p total abdominal hysterectomy and bilateral salpingo-oophorectomy and omentectomy, chemo through Jul [address] Treadwell. Stopped chemo treatment in Jul 2020 in an effort to improve quality of life. Understands prognosis, follows with [facility] palliative care as OP (6) CKD (chronic kidney disease), stage III: Kidney function at baseline. Continue to monitor daily BMP (7) Constipation: Ongoing constipation. Takes senna and fiber at home. Had large bowel movement since arrival. Will continue home regimen and increase if needed DVT Ppx: SC Lovenox Code status: DNR PCP: Dr Luo Dispo: Discharge home in next 24-48 hrs if remains medically stable Admission and Anticipated Discharge Date Admission Date: September 07, 2020 Subjective follow up visit for saddle pulmonary embolism /acute hypoxemic resp failure /m etastatic ovarian ca with peritoneal carcinomatosis : feels much better today no complain of dizzy spell or palpitation no pleuritic chest pain or back pain requiring 2 L supplemental o2 no fever or chills, no cough or BROWNING Review of Systems Review of Systems: All systems reviewed & are unremarkable except as noted in Subjective Physical Exam Constitutional: WD/WN, vitals as above Eyes: PERRL, conjunctivae normal, anicteric sclerae ENMT: external ear and nose normal, oropharynx normal Neck: trachea midline, no thyromegaly Respiratory: normal respiratory effort, lungs clear to auscultation Cardiovascular: RRR, no murmur, no edema Gastrointestinal (Abdomen): normal bowel sounds, soft, nontender, no hepatosplenomegaly Musculoskeletal: no cyanosis or clubbing, extremities motor strength 5/5 Skin: no rashes, warm and dry Neurologic: PERRL, EOMI, accommodation nl, no face palsy, no dysarthria Psychiatric: A+Ox3, euthymic affect Results & Data Results & Data ([facility]) Vital Signs (Past 12 Hours) Vital Signs Temp Pulse Pulse Resp BP Pulse Ox 09/08/20 14:58 37.1 C 90 20 94/65 L 90 09/08/20 11:41 36.6 C 97 H 16 101/67 94 09/08/20 08:00 92 H 09/08/20 07:00 36.6 C 94 H 20 98/66 L 92
[2020-09-08] MEDS: SENNA 8.6 MG TAB PO SCH (21:18)
[2020-09-09 07:39] LABS: Hematocrit (blood only) 35.2 % (37-47); Hemoglobin 11.1 g/dL (12.0-16.0); Mean Corpuscular Hemoglobin 28.6 pg (25-34); Mean Corpuscular Hgb Conc 31.5 g/dL (32-36); Mean Corpuscular Volume 90.7 fL (80-100); Mean Platelet Volume 9.7 fL (7.4-10.4); Platelet Count 142 K/uL (130-400); RDW Coefficient of Variation 17.3 % (11.5-14.5); RDW Standard Deviation 57.5 fL (36.4-46.3); Red Blood Count 3.88 M/uL (4.2-5.4); White Blood Count 5.28 K/uL (4.8-10.8)
[2020-09-09] MEDS: GABAPENTIN 100 MG CAP PO SCH ×2 (07:53→21:07)
[2020-09-09] MEDS: ASPIRIN 81 MG ECTAB PO SCH (07:53)
[2020-09-09] MEDS: CALCIUM 600MG + VIT D 400 IU TAB PO SCH (07:53)
[2020-09-09] MEDS: ADVANCED PROBIOTIC 1250 MG CAPSULE PO SCH (07:53)
[2020-09-09] MEDS: CHOLECALCIFEROL 1,000 UNITS 25 MCG TAB PO SCH (07:53)
[2020-09-09] MEDS: CYANOCOBALAMIN 500 MCG TABLET (VITAMIN B-12) PO SCH (07:54)
[2020-09-09] MEDS: ENOXAPARIN 80 MG/0.8 ML SYR SQ SCH ×2 (07:55→21:08)
[2020-09-09 08:13] LABS: BUN Creatinine Ratio 20.6 (10-20); Calcium 9.1 mg/dl (8.5-10.1); Creatinine Clr Calc Pharmacy 43.6 ml/min; Est GFR (African American) 56.9; Est GFR (Non-African American) 49.1; Potassium 4.2 mmol/L (3.5-5.1)
--- NOTE | 2020-09-09 14:46 | Communication Note ---
Date of Service: September 09, 2020 Pt has extensive bilateral PE with saddle pulmonary embolism causing Cor-pulmonale , right heart failure on acute hypoxemic respiratory failure requiring supplemental o2 getting severely SOB /orthopneic while lying flat Underlying metastatic ovarian Ca with wide spread peritoneal carcinomatosis , and bone mets "pt needs the head of bed to be elevated more than 30 degrees most of the time due to R sided heart failure/saddle PE". -which is not feasible with and ordinary bed due to bone pain with metastatic cancer Sally Kwon MD
--- NOTE | 2020-09-09 18:22 | Hospitalist Progress Note ---
Date of Service September 09, 2020 Assessment & Plan (1) Bilateral pulmonary embolism: This is a 80yo F with a PMH of metastatic ovarian cancer with peritoneal carcinomatosis (s/p total abdominal hysterectomy and bilateral salpingo- oophorectomy and omentectomy, chemo through Jul 2020), CKD III, history of migraines and other medical problems listed below who presents with dyspnea on exertion and chest pressure found to have bilateral pulmonary saddle emboli. Saddle embolus of pulmonary artery with acute cor pulmonale CTA revealed Extensive bilateral pulmonary emboli including saddle emboli with evidence of associated right heart strain. BNP 1594, trops 0.180/0.852. H hypotensive with BP 98/73, tachycardia with HR 109. 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 /pt is comfortable on self administration of Lovenox SC script for Lovenox 80 mg SC BID sent to pt's pharmacy Co -pay $13/months -affordable pt will need to keep HOB of bed elevated to 30 degree to prevent orthopnea due to rt heart failure needs hospital bed for positioning-script for hospital bed given to CM (2) Elevated troponin: demand ischemia/cardiac strain due to acute saddle PE : Trops: 0.180/0.160/0.852, HR 92-110, cont anticoagulation with Lovenox as outlined above Acute hypoxemic resp failure O2 sat dropped to 86% on RA, due to above on 2 L 02 , 2 step exercise to asses shows pt needs 2 L 02 with ambulation , no hypoxia at rest script for home 02 with portability given Hypotension : due to saddle emboli/rt heart failure BP improved with IV fluids , monitor in tele (3) Syncopal episodes: In setting of extensive bilateral pulmonary emboli including saddle emboli, also component of dehydration, vasovagal response in bathroom while straining to have BM no further episode since admission able to walk in room , no complain of dizzy spell or lightheadedness (4) Peritoneal carcinomatosis: (5) Ovarian cancer: S/p total abdominal hysterectomy and bilateral salpingo-oophorectomy and omentectomy, chemo through Jul [address] Treadwell. Stopped chemo treatment in Jul 2020 in an effort to improve quality of life. Understands prognosis, follows with [facility] palliative care as OP (6) CKD (chronic kidney disease), stage III: Kidney function at baseline. Continue to monitor daily BMP (7) Constipation: Ongoing constipation. Takes senna and fiber at home. Had large bowel movement since arrival. Will continue home regimen and increase if needed DVT Ppx: SC Lovenox therapeutic dose Code status: DNR /DNI -discussed with patient , PCP: Dr Luo Dispo: Discharge home in next tomorrow if remains medically stable updated over phone Admission and Anticipated Discharge Date Admission Date: September 07, 2020 Subjective follow up visit for saddle pulmonary embolism /acute hypoxemic resp failure /metastatic ovarian ca with peritoneal carcinomatosis : no complain of pleuritic chest pain no cough or SOB at rest , mentions of having chest heaviness with attempt to walk to bathroom no fever or chills on 09 02 via nasal canula no cough or hympoptysis Review of Systems Review of Systems: All systems reviewed & are unremarkable except as noted in Subjective Physical Exam Constitutional: WD/WN, vitals as above Eyes: PERRL, conjunctivae normal, anicteric sclerae ENMT: external ear and nose normal, oropharynx normal Neck: trachea midline, no thyromegaly Respiratory: normal respiratory effort, lungs clear to auscultation Cardiovascular: RRR, no murmur, no edema Gastrointestinal (Abdomen): normal bowel sounds, soft, nontender, no hepatosplenomegaly Musculoskeletal: no cyanosis or clubbing, extremities motor strength 5/5 Skin: no rashes, warm and dry Neurologic: PERRL, EOMI, accommodation nl, no face palsy, no dysarthria Psychiatric: A+Ox3, euthymic affect Results & Data Results & Data ([facility]) Vital Signs (Past 12 Hours) Vital Signs Temp Pulse Pulse Pulse Pulse Pulse Pulse 09/09/20 15:34 36.5 C 102 H 09/09/20 15:29 116 H 116 H 96 H 82 09/09/20 11:06 36.7 C 96 H 09/09/20 07:37 36.5 C 91 H 09/09/20 07:25 85 Resp Resp Resp Resp Resp BP BP 09/09/20 15:34 18 115/81 09/09/20 15:29 18 20 18 18 09/09/20 11:06 18 113/78 09/09/20 07:37 20 97/71 L 09/09/20 07:25 Pulse Ox Pulse Ox Pulse Ox Pulse Ox Pulse Ox 09/09/20 15:34 91 09/09/20 15:29 90 84 L 95 96 09/09/20 11:06 91 09/09/20 07:37 92 09/09/20 07:25
[2020-09-09] MEDS ORDERED: SODIUM CHLORIDE 0.65% NA SOLN 45 ML (OCEAN) PRN (18:53)
[2020-09-09] MEDS: SENNA 8.6 MG TAB PO SCH (21:08)
--- NOTE | 2020-09-09 21:10 | Communication Note ---
Date of Service: September 09, 2020 UA positive for : leukocyte esterase , urine cloudy , + bacterial and yeast urine culture : pin point growth , re incubating pt does not have any urinary symptoms, no fever or elevated white count holding off empiric abx for now follow up final culture growth : of culture positive for anita /fungal infection will need to be treated -metastatic malignancy immunocompromised status Update given to Pt's Yoel Mosley over phone in detail all questions answered Sally Kwon MD
--- NOTE | 2020-09-10 07:08 | Ultrasound Report ---
US venous doppler LE BI CLINICAL HISTORY: Leg swelling COMPARISON STUDY: May 2018 FINDINGS: Grayscale, color-flow, Doppler spectral waveform analysis was performed. On the right, no thrombus is visualized in the common femoral vein. There is nonocclusive thrombus wi thin the distal right superficial femoral vein. There is extensive occlusive thrombus within the righ t popliteal vein. There is thrombus within the proximal trifurcation veins of the calf. On the left, no thrombus was visualized in the common femoral superficial femoral or popliteal veins. There is thrombus within one of 2 posterior tibial veins. IMPRESSION: 1. Acute bilateral lower extremity DVT. ACT 112: Negative or not required by law. Electronically signed by: Suman Marrero M.D. 09/10/2020 7:07 AM
[2020-09-10] MEDS: ENOXAPARIN 80 MG/0.8 ML SYR SQ SCH (07:56)
[2020-09-10] MEDS: ADVANCED PROBIOTIC 1250 MG CAPSULE PO SCH (07:57)
[2020-09-10] MEDS: CALCIUM 600MG + VIT D 400 IU TAB PO SCH (07:57)
[2020-09-10] MEDS: ASPIRIN 81 MG ECTAB PO SCH (07:57)
[2020-09-10] MEDS: CHOLECALCIFEROL 1,000 UNITS 25 MCG TAB PO SCH (07:57)
[2020-09-10] MEDS: GABAPENTIN 100 MG CAP PO SCH (07:57)
[2020-09-10] MEDS: CYANOCOBALAMIN 500 MCG TABLET (VITAMIN B-12) PO SCH (07:58)
[2020-09-10] MEDS: ACETAMINOPHEN 500 MG TAB PO PRN ×2 (08:01→14:04)
--- NOTE | 2020-09-10 10:34 | Communication Note ---
Date of Service: September 10, 2020 Lower extremity Doppler shows : extensive bilateral lower ext DVT admitted with PE / Saddle emboli /cor pulmonale with rt heart failure has been on therapeutic SC Lovenox propagation of further lower ext thrombus could be life threatening /fatal case Discussed with Vascular surgery Dr Hicks given wide spread ovarian Ca with peritoneal carcinomatosis poor candidate for IVC filter placement recommends to continue with therapeutic anticoagulation. Dr Camilla Kwon MD
--- NOTE | 2020-09-10 14:38 | Hospitalist Progress Note ---
Date of Service September 10, 2020 Assessment & Plan (1) Bilateral pulmonary embolism: per Dr. Kwon's notes: This is a 80yo F with a PMH of metastatic ovarian cancer with peritoneal carcinomatosis (s/p total abdominal hysterectomy and bilateral salpingo- oophorectomy and omentectomy, chemo through Jul 2020), CKD III, history of migraines and other medical problems listed below who presents with dyspnea on exertion and chest pressure found to have bilateral pulmonary saddle emboli. Saddle embolus of pulmonary artery with acute cor pulmonale CTA revealed Extensive bilateral pulmonary emboli including saddle emboli with evidence of associated right heart strain. BNP 1594, trops 0.180/0.852. H hypotensive with BP 98/73, tachycardia with HR 109. CXR without acute findings on therapeutic dose SQ Lovenox 80 mg BID hypotensive episode improved after IV fluid at present denies of any dizzy spell or lightheadedness discussed with [facility]85 Dr. Lam- no further intervention at this time, does not recommend IVC filter discharge on Lovenox 80mg q12h ff up with Dr. Treadwell next week as scheduled Rt heart failure : due to above was hypotensive on admission BP improve with IV hydration cont tx for PE as outlined above Metastatic ovarian Ca with peritoneal carcinomatosis : follows with [facility] Palliative care venous thromboembolism associated with malignancy high risk for recurrence of anticoagulation will need fci anticoagulation /pt is comfortable on self administration of Lovenox SC script for Lovenox 80 mg SC BID sent to pt's pharmacy Co -pay $13/months -affordable pt will need to keep HOB of bed elevated to 30 degree to prevent orthopnea due to rt heart failure needs hospital bed for positioning-script for hospital bed given to CM History of CVA Brain MRI 05/20: small infarct left parietal vertex hold ASA for now given that patient is being started on Lovenox 80mg q12h follow up with PCP in 1-2 weeks (2) Elevated troponin: demand ischemia/cardiac strain due to acute saddle PE : Trops: 0.180/0.160/0.852, HR 92-110, cont anticoagulation with Lovenox as outlined above Acute hypoxemic resp failure O2 sat dropped to 86% on RA, due to above on 2 L 02 , 2 step exercise to asses shows pt needs 2 L 02 with ambulation , no hypoxia at rest script for home 02 with portability given Hypotension : due to saddle emboli/rt heart failure BP improved with IV fluids , monitor in tele (3) Syncopal episodes: In setting of extensive bilateral pulmonary emboli including saddle emboli, also component of dehydration, vasovagal response in bathroom while straining to have BM no further episode since admission able to walk in room , no complain of dizzy spell or lightheadedness (4) Peritoneal carcinomatosis: (5) Ovarian cancer: S/p total abdominal hysterectomy and bilateral salpingo-oophorectomy and omentectomy, chemo through Jul [address] Treadwell. Stopped chemo treatment in Jul 2020 in an effort to improve quality of life. Understands prognosis, follows with [facility] palliative care as OP (6) CKD (chronic kidney disease), stage III: Kidney function at baseline. Continue to monitor daily BMP (7) Constipation: Ongoing constipation. Takes senna and fiber at home. Had large bowel movement since arrival. Will continue home regimen and increase if needed DVT Ppx: SC Lovenox therapeutic dose Code status: DNR /DNI -discussed with patient , PCP: Dr Luo Dispo: Discharge home in next tomorrow if remains medically stable updated over phone Admission and Anticipated Discharge Date Admission Date: September 07, 2020 Subjective ff up for BL PE and DVTs seen resting in chair, on 2 L O2 via NC states she feels better overall no dyspnea when using O2 supplement no chest pain, palpitations, dizziness mild leg discomfort no problems with ambulation no bleeding states she feels fine and would like to be discharged today no other symptoms Review of Systems Review of Systems: All systems reviewed & are unremarkable except as noted in Subjective Physical Exam Physical Exam: General- oriented x 3, not in distress, speaks in sentences with no effort or accessory muscle use Eyes- anicteric Neck- no JVD Lungs- clear breath sounds bilaterally, no rales/wheezes Heart- normal rate, regular rhythm; no murmurs Abdomen- normal bowel sounds, nondistended, soft, nontender Extremities-mild pretibial edema, no calf tenderness Neuro- alert, oriented x 3; no gross focal neurologic deficits Skin- warm & dry Results & Data Results & Data ([facility]) Vital Signs (Past 12 Hours) Vital Signs Temp Pulse Pulse Pulse Resp BP BP 09/10/20 14:29 36.6 C 104 H 93 H 16 95/67 L 117/80 09/10/20 11:05 36.6 C 104 H 16 117/80 09/10/20 07:33 100 H 09/10/20 07:20 36.7 C 102 H 20 120/81 09/10/20 04:17 37.1 C 104 H 20 95/67 L Pulse Ox 09/10/20 14:29 97 09/10/20 11:05 97 09/10/20 07:33 09/10/20 07:20 92 09/10/20 04:17 91
--- NOTE | 2020-09-10 15:00 | Discharge Summary ---
Date of Service September 10, 2020 Admission HPI Per Admitting Provider This is a 80yo F with a PMH of metastatic ovarian cancer with peritoneal carcinomatosis (s/p total abdominal hysterectomy and bilateral salpingo- oophorectomy and omentectomy, chemo through Jul 2020), CKD III, history of migraines and other medical problems listed below who presents with dyspnea on exertion and chest pressure since yesterday. Started to have palpitations yesterday when climbing stairs. Developed left sided chest pain and dyspnea on exertion yesterday as well. This morning felt lightheaded and had syncopal episode. Came to ED for further evaluation. Ambulated to restroom and had another syncopal episode after having a bowel movement. Denies any fever chills. No headache. No wheezing, nausea, vomiting, abdominal pain or dysuria. Chronic constipation. Follows with Dr. Treadwell of [facility] and decided to discuss continue chemotherapy as of July 2020 in an effort to improve quality of life. Follows with [facility]. In ED, patient noted to be hypotensive with BP 90s/70s and tachycardic at 110. Is saturating at 98% on room air. Troponin elevated at 0.180. Covid negative. Chest CTA with extensive bilateral pulmonary emboli including saddle emboli with evidence of associated right heart strain. Trace pleural effusions. No bowel obstruction or pneumoperitoneum. Moderate progression of the peritoneal carcinomatosis. This includes probable serosal implants on the large bowel. Numerous new/progressed pathologic lymph nodes throughout the abdomen and pelvis which are suggestive of metastatic disease. Admission Exam Per Admitting Provider General Appearance: vitals as above, NAD, appears chronically ill, pleasant, conversing easily Head: normocephalic, atraumatic Eyes: normal inspection, PERRL, conjunctivae normal, anicteric sclerae ENT: external ear and nose normal, oropharynx normal Neck: normal visual inspection, trachea midline, no thyromegaly Respiratory: normal respiratory effort, lungs clear to auscultation, no wheeze, rales, rhonchi. No accessory muscle use Cardiovascular: tachycardic rate, regular rhythm, no murmur appreciated, normal peripheral pulses, no BLE edema. Vessels: no JVD Chest: normal inspection of chest Abdomen/GI: normal bowel sounds, soft, nontender, no hepatosplenomegaly Extremities/Musculoskeletal: no cyanosis or clubbing, extremities motor strength 5/5 Neurologic: PERRL, EOMI, accommodation nl, no face palsy, no dysarthria, CN's II-XI intact bilaterally and moves all extremities Psychiatric: A+Ox3, euthymic affect Skin: no rashes, normal color, warm/dry Principal Diagnosis EXTENSIVE BILATERAL PULMONARY EMBOLI RIGHT VENTRICULAR DYSFUNCTION BILATERAL DEEP VENOUS THROMBOSIS Discharge Exam General- oriented x 3, not in distress, speaks in sentences with no effort or accessory muscle use Eyes- anicteric Neck- no JVD Lungs- clear breath sounds bilaterally, no rales/wheezes Heart- normal rate, regular rhythm; no murmurs Abdomen- normal bowel sounds, nondistended, soft, nontender Extremities-mild pretibial edema, no calf tenderness Neuro- alert, oriented x 3; no gross focal neurologic deficits Skin- warm & dry Discharge Data Allergies Allergy/AdvReac Type Severity Reaction Status Date / Time amoxicillin AdvReac Severe SEVERE Verified 09/07/20 10:47 STOMACH UPSET clavulanic acid AdvReac Severe SEVERE Verified 09/07/20 10:47 STOMACH UPSET naproxen AdvReac Severe Abdominal Verified 09/07/20 10:47 Pain chlorhexidine AdvReac Intermediate rash, Verified 09/07/20 10:47 itchy skin, inflammation at site Consultations 09/07/20 13:02 ED Decision to Admit Stat 09/07/20 17:20 Consult Case Management - Discharge Planning Routine 09/10/20 13:05 Consult Pulmonology Routine Ordered Studies 09/07/20 09:46 CT abd pelvis IV con only Stat CT angio chest PE protocol Stat CTA: Cardiomegaly. Moderate coronary artery calcifications. No thoracic aortic aneurysm. Suboptimally opacified thoracic aorta secondary to contrast bolus timing. Extensive bilateral pulmonary emboli saddle emboli with emboli within the main, bilateral lobar, segmental and subsegmental branches. Straightening of the intraventricular septum with mild dilation of the pulmonary artery. CT CHEST: Unremarkable thyroid. Mildly enlarged mediastinal lymph nodes measure up to 1.3 cm in the subcarinal distribution, increased in size from comparison. Left pectoral [id number] catheter distal tip terminates in the inferior SVC. Trace pleural effusions. Mild subsegmental bibasilar atelectasis. No overt pulmonary edema or large pulmonary infarct. Central airways are patent. No airspace consolidation typical for pneumonia. Mild wall thickening of the distal esophagus. Unremarkable soft tissues. No acute fracture. There is decreased size of the previous noted scattered sclerotic skeletal lesions. This includes a 2 mm lesion at T1 which previously measured 4 mm. 3 mm lesion at T4 previously measured 5 mm. No new or progressive sclerotic lesions are identified. CT ABDOMEN/PELVIS: There is no pneumatosis or pneumoperitoneum. 1.3 cm hypodense splenic lesion redemonstrated. The pancreas pancreas and adrenal glands are unremarkable. Cholecystectomy. Unremarkable liver. Mixing artifact and IVC. Patency of the hepatic and portal veins. There are a few bilateral renal cysts. No hydronephrosis. Decompressed urinary bladder. Hysterectomy. Moderate mixed plaque of the abdominal aorta. Progressively worsened peritoneal carcinomatosis with progressive pathologic-appearing adenopathy throughout the abdomen and pelvis. This includes a precaval lymph nodes which measure up to 2.5 x 1.0 cm. Mesenteric lymph nodes are seen measuring up to 10 mm. Pathologic lymph nodes are also seen within the retroperitoneum and bilateral iliac chains. Mild nonspecific distal esophageal wall thickening. Scattered small bowel air- fluid levels. Moderate fecal retention. Colonic diverticulosis. Mild wall thickening with partial distention of the sigmoid. Terminal ileum and appendix are unremarkable. Unremarkable soft tissues. No acute fracture or new bone lesion. Demineralized appearance of the bones. Prior L4 laminectomy. IMPRESSION: 1. Extensive bilateral pulmonary emboli including saddle emboli with evidence of associated right heart strain. 2. Trace pleural effusions. 3. No bowel obstruction or pneumoperitoneum. 4. Moderate progression of the peritoneal carcinomatosis. This includes probable serosal implants on the large bowel. 5. Numerous new/progressed pathologic lymph nodes throughout the abdomen and pelvis which are suggestive of metastatic disease. 6. Decreased size of the skeletal sclerotic lesions suggestive of mixed treatment response. 7. Moderate fecal retention. 8. Additional findings as above. 09/07/20 12:00 CT head/brain wo con Stat 09/07/20 12:17 US point of care ultrasound Stat 09/09/20 18:58 US venous doppler LE BI Routine FINDINGS: Grayscale, color-flow, Doppler spectral waveform analysis was performed. On the right, no thrombus is visualized in the common femoral vein. There is nonocclusive thrombus within the distal right superficial femoral vein. There is extensive occlusive thrombus within the right popliteal vein. There is thrombus within the proximal trifurcation veins of the calf. On the left, no thrombus was visualized in the common femoral superficial femoral or popliteal veins. There is thrombus within one of 2 posterior tibial veins. IMPRESSION: 1. Acute bilateral lower extremity DVT. Hospital Course (1) Bilateral pulmonary embolism: per Dr. Kwon's notes: This is a 80yo F with a PMH of metastatic ovarian cancer with peritoneal carcinomatosis (s/p total abdominal hysterectomy and bilateral salpingo- oophorectomy and omentectomy, chemo through Jul 2020), CKD III, history of migraines and other medical problems listed below who presents with dyspnea on exertion and chest pressure found to have bilateral pulmonary saddle emboli. Saddle embolus of pulmonary artery with acute cor pulmonale Extensive Bilateral Lower Extremity DVT CTA revealed Extensive bilateral pulmonary emboli including saddle emboli with evidence of associated right heart strain. BNP 1594, trops 0.180/0.852. H hypotensive with BP 98/73, tachycardia with HR 109. CXR without acute findings Lower extremity Doppler shows : extensive bilateral lower ext DVT per admitting SVC, not a candidate for thrombolysis, TPA due to extensive peritoneal carcinomatosis on therapeutic dose SQ Lovenox 80 mg BID hypotensive episode improved after IV fluid at present denies of any dizzy spell or lightheadedness discussed with [facility] [employer] Dr. Lam- no further intervention at this time, does not recommend IVC filter discharge on Lovenox 80mg q12h ff up with Dr. Treadwell next week as scheduled Rt heart failure due to Cor pulmonale /saddle PE : ECHO shows : normal LV function and EF dilated rt ventricle and atrium , moderately reduced rt ventricular function elevated RV pressure with tricuspid regurgitation cont therapeutic anticoagulation with Lovenox given RV dysfunction : pt's cardiac out put /forward flow is mostly Pre load vol dependent. Thromboembolism due to malignancy : will need to be on life long Lovenox SC anticoagulation will benefit with referral to coagulation clinic /MTM to monitor Factor X level /monitor for bleeding complication ( high risk ) and Lovenox dose adjustment if needed Metastatic ovarian Ca with peritoneal carcinomatosis : [facility] venous thromboembolism associated with malignancy high risk for recurrence of anticoagulation will need long-term anticoagulation /pt is comfortable on self administration of Lovenox SC script for Lovenox 80 mg SC BID sent to pt's pharmacy Co -pay $13/months -affordable pt will need to keep HOB of bed elevated to 30 degree to prevent orthopnea due to rt heart failure needs hospital bed for positioning-script for hospital bed given to CM History of CVA Brain MRI 05/20: small infarct left parietal vertex hold ASA for now given that patient is being started on Lovenox 80mg q12h follow up with PCP in 1-2 weeks (2) Elevated troponin: demand ischemia/cardiac strain due to acute saddle PE : Trops: 0.180/0.160/0.852, HR 92-110, cont anticoagulation with Lovenox as outlined above Acute hypoxemic resp failure O2 sat dropped to 86% on RA, due to above on 2 L 02 , 2 step exercise to asses shows pt needs 2 L 02 with ambulation , no hypoxia at rest script for home 02 with portability given Hypotension : due to saddle emboli/rt heart failure BP improved with IV fluids , monitor in tele (3) Syncopal episodes: In setting of extensive bilateral pulmonary emboli including saddle emboli, also component of dehydration, vasovagal response in bathroom while straining to have BM no further episode since admission able to walk in room , no complain of dizzy spell or lightheadedness (4) Peritoneal carcinomatosis: (5) Ovarian cancer: S/p total abdominal hysterectomy and bilateral salpingo-oophorectomy and omentectomy, chemo through Jul [address] Treadwell. Stopped chemo treatment in Jul 2020 in an effort to improve quality of life. Understands prognosis, follows with [facility] palliative care as OP (6) CKD (chronic kidney disease), stage III: Kidney function at baseline. Continue to monitor daily BMP (7) Constipation: Ongoing constipation. Takes senna and fiber at home. Had large bowel movement since arrival. Will continue home regimen and increase if needed DVT Ppx: SC Lovenox therapeutic dose Code status: DNR /DNI -discussed with patient , PCP: Dr Luo Dispo: Discharge home in next tomorrow if remains medically stable updated over phone Total Time Total Time Spent Total Time Spent (In Minutes): 60 minutes Discharge Plan Discharge Items Patient Disposition: Home - Home Health Services Reason For Visit: PES, R HEART STRAIN, MET OVARIAN CANCER Discharge Diagnosis: Pulmonary embolism /Saddle emboli RT heart failure /Cor Pulmonale Acute hypoxemic respiratory failure due to PE metastatic ovarian carcinoma with peritoneal carcinomatosis Activity: As commented below Activity Comment: as tolerated Non-emergency contact: Primary Care Provider Call non-emergency contact if: you have any medication questions Follow-up/Referrals: Anitra Luo MD [Primary Care Provider] - 09/12/20 11:00 am (Date & Time 09/12/2020 11:00 AM Provider Anitra Luo MD Department General Internal Medicine [facility] ) Morenita Treadwell MD [Hospitalist] - Diet: Regular Addtl Attending Provider Instructions: Please take all medications as instructed on discharge list below. You are asked not to take Aspirin , Meloxicam Avoid Advil , Aleve, Motrin , Ibuprofen , Naproxen -all NSAID's group of drugs , high risk of bleeding in stomach and gut while on Lovenox Proceed to the ER immediately if you sustain any head trauma, even if you do not have any symptoms. It was a pleasure taking care of you! Please call if you have any questions or problems. You can reach a [facility] hospitalist on duty at [facility] 24 hours a day by calling [phone] Pending Studies at Discharge: No Stand-Alone Forms: My [facility], Smoking Cessation Medications and DC Order Prescriptions: New enoxaparin [Lovenox] 80 mg/0.8 mL Syringe 80 mg subcut Q12H 30 Days Qty: 48 RF: 3 Continued gabapentin 100 mg Capsule 100 mg PO QAM RF: 0 calcium carbonate-mag hydroxid 700-300 mg Tablet,Chewable 1 tab PO DAILY RF: 0 Benefiber Clear SF (dextrin) 3 gram/3.5 gram Powder In Packet 1.5 g PO BID RF: 0 gabapentin 100 mg Tablet 200 mg PO HS RF: 0 white petrolatum-mineral oil Ointment 1 applic OPHTHALMIC (EYE) 6XD PRN (Reason: Dry Eye(S)) RF: 0 prochlorperazine maleate 10 mg Tablet 10 mg PO Q6H PRN (Reason: Nausea) RF: 0 GenTeal Tears Moderate 0.1-0.3-0.2 % Drops 1 drp OPHTHALMIC (EYE) 5XD PRN (Reason: Dry Eye(S)) RF: 0 senna 8.6 mg Capsule 8.6 mg PO HS RF: 0 Probiotic 3 billion cell Capsule 3,000 mmu cells PO DAILY RF: 0 valacyclovir [Valtrex] 500 mg Tablet 500 mg PO UD RF: 0 Excedrin Tension Headache 500-65 mg Tablet 1 tab PO Q12H PRN (Reason: Pain) RF: 0 cyanocobalamin (vitamin B-12) [Vitamin B-12] 1,000 mcg Tablet 100 mcg PO DAILY RF: 0 cholecalciferol (vitamin D3) [Vitamin D3] 25 mcg (1,000 unit) Tablet 25 mcg PO DAILY RF: 0 Discontinued meloxicam 15 mg tablet 15 mg PO DAILY PRN (Reason: pain) Qty: 30 RF: 2 aspirin 81 mg Tablet,Delayed Release (Dr/Ec) 81 mg PO QAM RF: 0 Discharge Orders: Discharge Order (Routine); Ordered 09/10/20 Ordered By: Junior Sampson Admission Data Admit Date/Time: 09/07/20 13:43 Attending Provider: Junior Sampson Admit Provider: Sally Kwon Primary Care Provider: Anitra Luo Other Providers: Sally Kwon ; [facility],Home [facility] ; Lion Lam Other Interventions: Discharge Summary Assessment (RN) Last Done: 09/10/20 14:29
== END 2020-09-10 16:24 | disposition home health service (06) | DRG 175 ==
LOC: ED 09:09 → SUATTDRO 13:43 → 2W 13:43